=== PATIENT | male | born 1950 | race Caucasian/White ===

== ENCOUNTER 2018-04-06 15:25 | Inpatient (IN) ==
--- NOTE | 2018-04-06 19:14 | ED ---
HPI General Chief complaint: Skin/Abscess/Foreign Body Stated complaint: R calf issue, chest congestion, trouble breathing Time Seen by Provider: 04/06/18 18:07 Source: patient and family Mode of arrival: ambulatory Limitations: no limitations History of Present Illness HPI narrative: Mr Higgins is a 67 year old male who presents to the ED for a rash on his right lower leg. The patient states the rash began last Friday as light pink dots and has progressed to a large erythematous area of confluence and petechiae surrounding it. He states there is pain over the area that is the darkest, directly over the tibia on the anterior lower leg. This pain is a 5/10 at rest and a 9/10 when touched. The patient has uncontrolled DMT2, and his last A1C was 9.1. He has a diabetic ulcer on the dorsal aspect of the right big toe that he states has been present for 2 months and has not changed. He also states the right leg has been swollen much more than normal since Friday and he has been keeping it elevated but it does not seem to help. Upon further questioning, the patient states he has SOB on exertion that has been present for 3 months, and intermittent chest pain since Friday that he describes as a 6/10 and feels like pressure. He also experiences SOB when lying flat. The patient's PMH is significant for DMT2, 3 stent placements, HTN, sleep apnea, hyperlipidemia, and a mini stroke in 2005. The patient is not taking any blood thinners. He is a former smoker but quit 15 years ago, drinks 1 scotch per day, and denies drug use. Patient did took an aspirin 325 mg today. Related Data Home Medications Medication Instructions Recorded Confirmed amlodipine 2.5 mg PO DAILY 04/06/18 04/06/18 ascorbic acid (vitamin C) [Vitamin 500 mg PO DAILY 04/06/18 04/06/18 C] aspirin 325 mg PO DAILY 04/06/18 04/06/18 atorvastatin 40 mg PO DAILY 04/06/18 04/06/18 cholecalciferol (vitamin D3) 2,000 unit PO DAILY 04/06/18 04/06/18 [Vitamin D3] cyanocobalamin (vitamin B-12) 2,500 mcg SUBLINGUAL DAILY 04/06/18 04/06/18 [Vitamin B-12] glipizide 10 mg PO DAILY 04/06/18 04/06/18 hydrochlorothiazide 25 mg PO DAILY 04/06/18 04/06/18 lisinopril 20 mg PO DAILY 04/06/18 04/06/18 metformin 1,500 mg PO QPM 04/06/18 04/06/18 potassium chloride 20 meq PO DAILY 04/06/18 04/06/18 sitagliptin [Januvia] 100 mg PO DAILY 04/06/18 04/06/18 zinc 50 mg PO DAILY 04/06/18 04/06/18 Allergies Allergy/AdvReac Type Severity Reaction Status Date / Time No Known Allergies Allergy Verified 04/07/18 14:41 Review of Systems ROS: all other systems reviewed are negative [facility] Medical History Medical History Coronary artery disease (Acute) Diabetes mellitus (Acute) History of CVA (cerebrovascular accident) (Acute) Hyperlipidemia (Acute) Hypertension (Acute) Surgical History Surgical History History of coronary artery stent placement (Acute) Family History Family History Other Lung cancer Social History Social History Substance History: No History of Abuse Second Hand Smoke Exposure: No Smoking Status: Former smoker How Often Do You Have a Drink Containing Alcohol: 4 or more times a week Recent Travel in [facility] within the Last 8 Weeks: No Recent Out of Country Travel within the Last 8 Weeks: No Immunization History Tetanus Immunization: >5 Years Exam Narrative Exam Narrative: GENERAL: Patient is a well appearing male in [facility]. SKIN: Warm and dry. HEAD: Atraumatic. Normocephalic. EYES: Pupils equal and round. No scleral icterus. No injection or drainage. ENT: No nasal bleeding or discharge. Mucous membranes pink and moist. NECK: Trachea midline. No JVD. CARDIOVASCULAR: Tachycardic. Regular rhythm. RESPIRATORY: No accessory muscle use. Clear to auscultation. Breath sounds equal bilaterally. GASTROINTESTINAL: Abdomen soft, non-tender, nondistended. Hepatic and splenic margins not palpable. MUSCULOSKELETAL: Extremities without clubbing or cyanosis. Large erythematous petechiae with central confluence on the right lower leg from knee to ankle. Pain with palpation of the confluence. Edema of the lower extremities bilaterally, more pronounced on the right. Diabetic ulcer present on the dorsal surface of the right hallux. DP pulses palpable bilaterally. NEUROLOGICAL: Awake and alert. No obvious cranial nerve deficits. Motor grossly within normal limits. Five out of 5 muscle strength in the arms and legs. Normal speech. Decreased sensation to the bilateral lower extremities to touch and vibration. PSYCHIATRIC: Appropriate mood and affect; insight and judgment normal. Course Initial Documented Vital Signs Temperature 98.8 F 04/06/18 15:36 Pulse Rate 120 H 04/06/18 15:36 Respiratory Rate 18 04/06/18 15:36 Blood Pressure 144/67 H 04/06/18 15:36 Pulse Oximetry 97 04/06/18 15:36 Last Documented Vital Signs Temperature 98.7 F 04/08/18 12:00 Pulse Rate 91 H 04/08/18 12:00 Respiratory Rate 16 04/08/18 12:00 Blood Pressure 121/64 04/08/18 12:00 Pulse Oximetry 96 04/08/18 12:00 Medical Decision Making CHRIS Attestation CHRIS supervised visit: Yes Attestation: I, Dr. Ramachandran, have reviewed the advance practice practitioner's documentation and am in agreement, met with the patient face to face, made the diagnosis, and the medical decision making was done by me. *My assessment and Findings: NSTEMI MDM Narrative Medical decision making narrative: 67-year-old male that presents to the ED for evaluation of right lower leg infection and shortness of breath with exertion. Patient was properly examined and was found to have signs and symptoms of unclear etiology. Labs and imaging were ordered. Labs and imaging were positive for appears to be cellulitis of the right leg as well as what appears to be an STEMI. At this time Sanders is for admission. Patient was on heparin IV as well as Zosyn and Vanco per my attending's recommendation per my attending Dr. Vilma Lundler the patient with me and agrees with plan. Case discussed with Dr. Mercer who agrees admission to her service. Medical Screen Exam Complete: Yes Emergency Medical Condition: Yes Differential Diagnosis Differential Diagnosis: NSTEMI versus angina versus cellulitis versus ACS versus DVT Medical Records Medical records reviewed: Yes I reviewed the patient's medical records. Lab Data Lab results reviewed: Yes I reviewed the patient's lab results. Result diagrams: 04/08/18 06:45 04/08/18 06:45 Lab Results 04/06/18 04/06/18 04/06/18 Range/Units 18:40 18:40 18:40 WBC 12.3 H (4.0-11.0) th/mm3 RBC 4.91 (4.50-5.90) mil/mm3 Hgb 14.8 (13.0-17.0) gm/dL Hct 43.4 (39.0-51.0) % MCV 88.3 (80.0-100.0) fL MCH 30.1 (27.0-34.0) pg MCHC 34.1 (32.0-36.0) % RDW 13.5 (11.6-17.2) % Plt Count 246 (150-450) th/mm3 MPV 9.0 (7.0-11.0) fL Prelim Diff (Auto) Neut % (Auto) 64.4 (16.0-70.0) % Lymph % (Auto) 21.7 (9.0-44.0) % Mora % (Auto) 11.0 H (0.0-8.0) % Eos % (Auto) 2.1 (0.0-4.0) % Baso % (Auto) 0.8 (0.0-2.0) % Neut # (Auto) 8.0 H (1.8-7.7) th/mm3 Lymph # (Auto) 2.7 (1.0-4.8) th/mm3 Mora # (Auto) 1.4 H (0.0-0.9) th/mm3 Eos # (Auto) 0.3 (0.0-0.4) th/mm3 Baso # (Auto) 0.1 (0.0-0.2) th/mm3 WBC Differential . Diff Scan Seg Neuts % (Manual) (16-70) % Band Neuts % (Manual) (0-6) % Lymphocytes % (Manual) (9-44) % Monocytes % (Manual) (0-8) % Eosinophils % (Manual) (0-4) % Basophils % (Manual) (0-2) % Myelocytes % (Man) (0-0) % Abs Neuts (Manual) (1.8-7.7) th/mm3 Differential Comment Auto diff final Platelet Estimate (Normal) Platelet Morphology (Normal) Ovalocytes (None) PT (9.8-11.6) sec INR Ratio APTT (23.4-31.7) sec Sodium Cancelled Potassium Cancelled Chloride Cancelled Carbon Dioxide Cancelled Anion Gap Cancelled BUN Cancelled Creatinine Cancelled Estimated GFR Cancelled POC Glucose (68-110) mg/dl Random Glucose Cancelled Lactic Acid 2.6 H (0.4-2.0) mmol/L Calcium Cancelled Total Bilirubin (0.2-1.0) mg/dL AST (15-37) U/L ALT (12-78) U/L Alkaline Phosphatase (45-117) U/L Total Creatine Kinase (39-308) U/L Troponin I (0.02-0.05) ng/mL C-Reactive Protein (0.00-0.30) mg/dL B-Natriuretic Peptide (0-100) pg/mL Total Protein (6.4-8.2) g/dL Albumin (3.4-5.0) g/dL 04/06/18 04/06/18 04/06/18 Range/Units 18:40 18:40 20:10 WBC (4.0-11.0) th/mm3 RBC (4.50-5.90) mil/mm3 Hgb (13.0-17.0) gm/dL Hct (39.0-51.0) % MCV (80.0-100.0) fL MCH (27.0-34.0) pg MCHC (32.0-36.0) % RDW (11.6-17.2) % Plt Count (150-450) th/mm3 MPV (7.0-11.0) fL Prelim Diff (Auto) Neut % (Auto) (16.0-70.0) % Lymph % (Auto) (9.0-44.0) % Mora % (Auto) (0.0-8.0) % Eos % (Auto) (0.0-4.0) % Baso % (Auto) (0.0-2.0) % Neut # (Auto) (1.8-7.7) th/mm3 Lymph # (Auto) (1.0-4.8) th/mm3 Mora # (Auto) (0.0-0.9) th/mm3 Eos # (Auto) (0.0-0.4) th/mm3 Baso # (Auto) (0.0-0.2) th/mm3 WBC Differential Diff Scan Seg Neuts % (Manual) (16-70) % Band Neuts % (Manual) (0-6) % Lymphocytes % (Manual) (9-44) % Monocytes % (Manual) (0-8) % Eosinophils % (Manual) (0-4) % Basophils % (Manual) (0-2) % Myelocytes % (Man) (0-0) % Abs Neuts (Manual) (1.8-7.7) th/mm3 Differential Comment Platelet Estimate (Normal) Platelet Morphology (Normal) Ovalocytes (None) PT 10.8 (9.8-11.6) sec INR 1.1 Ratio APTT 22.1 L (23.4-31.7) sec Sodium 136 Potassium 3.3 L Chloride 100 Carbon Dioxide 27.7 Anion Gap 8 BUN 23 H Creatinine 1.44 H Estimated GFR 49 L POC Glucose (68-110) mg/dl Random Glucose 170 H Lactic Acid (0.4-2.0) mmol/L Calcium 9.1 Total Bilirubin (0.2-1.0) mg/dL AST (15-37) U/L ALT (12-78) U/L Alkaline Phosphatase (45-117) U/L Total Creatine Kinase (39-308) U/L Troponin I 2.27 H* (0.02-0.05) ng/mL C-Reactive Protein 13.00 H (0.00-0.30) mg/dL B-Natriuretic Peptide 74 (0-100) pg/mL Total Protein (6.4-8.2) g/dL Albumin (3.4-5.0) g/dL 04/07/18 04/07/18 04/07/18 Range/Units 00:36 01:00 01:49 WBC (4.0-11.0) th/mm3 RBC (4.50-5.90) mil/mm3 Hgb (13.0-17.0) gm/dL Hct (39.0-51.0) % MCV (80.0-100.0) fL MCH (27.0-34.0) pg MCHC (32.0-36.0) % RDW (11.6-17.2) % Plt Count (150-450) th/mm3 MPV (7.0-11.0) fL Prelim Diff (Auto) Neut % (Auto) (16.0-70.0) % Lymph % (Auto) (9.0-44.0) % Mora % (Auto) (0.0-8.0) % Eos % (Auto) (0.0-4.0) % Baso % (Auto) (0.0-2.0) % Neut # (Auto) (1.8-7.7) th/mm3 Lymph # (Auto) (1.0-4.8) th/mm3 Mora # (Auto) (0.0-0.9) th/mm3 Eos # (Auto) (0.0-0.4) th/mm3 Baso # (Auto) (0.0-0.2) th/mm3 WBC Differential Diff Scan Seg Neuts % (Manual) (16-70) % Band Neuts % (Manual) (0-6) % Lymphocytes % (Manual) (9-44) % Monocytes % (Manual) (0-8) % Eosinophils % (Manual) (0-4) % Basophils % (Manual) (0-2) % Myelocytes % (Man) (0-0) % Abs Neuts (Manual) (1.8-7.7) th/mm3 Differential Comment Platelet Estimate (Normal) Platelet Morphology (Normal) Ovalocytes (None) PT (9.8-11.6) sec INR Ratio APTT (23.4-31.7) sec Sodium Potassium Chloride Carbon Dioxide Anion Gap BUN Creatinine Estimated GFR POC Glucose 130 H 120 H (68-110) mg/dl Random Glucose Lactic Acid (0.4-2.0) mmol/L Calcium Total Bilirubin (0.2-1.0) mg/dL AST (15-37) U/L ALT (12-78) U/L Alkaline Phosphatase (45-117) U/L Total Creatine Kinase 255 (39-308) U/L Troponin I 2.09 H* (0.02-0.05) ng/mL C-Reactive Protein (0.00-0.30) mg/dL B-Natriuretic Peptide (0-100) pg/mL Total Protein (6.4-8.2) g/dL Albumin (3.4-5.0) g/dL 04/07/18 04/07/18 04/07/18 Range/Units 02:45 06:17 06:17 WBC 9.1 (4.0-11.0) th/mm3 RBC 4.11 L (4.50-5.90) mil/mm3 Hgb 12.9 L (13.0-17.0) gm/dL Hct 35.9 L (39.0-51.0) % MCV 87.2 (80.0-100.0) fL MCH 31.4 (27.0-34.0) pg MCHC 36.0 (32.0-36.0) % RDW 13.8 (11.6-17.2) % Plt Count 210 (150-450) th/mm3 MPV 8.9 (7.0-11.0) fL Prelim Diff (Auto) Slide review pending Neut % (Auto) 60.2 (16.0-70.0) % Lymph % (Auto) 25.9 (9.0-44.0) % Mora % (Auto) 9.4 H (0.0-8.0) % Eos % (Auto) 3.6 (0.0-4.0) % Baso % (Auto) 0.9 (0.0-2.0) % Neut # (Auto) 5.5 (1.8-7.7) th/mm3 Lymph # (Auto) 2.4 (1.0-4.8) th/mm3 Mora # (Auto) 0.8 (0.0-0.9) th/mm3 Eos # (Auto) 0.3 (0.0-0.4) th/mm3 Baso # (Auto) 0.1 (0.0-0.2) th/mm3 WBC Differential . Diff Scan Auto diff confirmed Seg Neuts % (Manual) (16-70) % Band Neuts % (Manual) (0-6) % Lymphocytes % (Manual) (9-44) % Monocytes % (Manual) (0-8) % Eosinophils % (Manual) (0-4) % Basophils % (Manual) (0-2) % Myelocytes % (Man) (0-0) % Abs Neuts (Manual) (1.8-7.7) th/mm3 Differential Comment . Platelet Estimate (Normal) Platelet Morphology (Normal) Ovalocytes (None) PT (9.8-11.6) sec INR Ratio APTT 31.4 D (23.4-31.7) sec Sodium 138 Potassium 3.3 L Chloride 103 Carbon Dioxide 27.7 Anion Gap 7 BUN 22 H Creatinine 1.15 Estimated GFR 64 L POC Glucose (68-110) mg/dl Random Glucose 111 H Lactic Acid (0.4-2.0) mmol/L Calcium 8.4 L Total Bilirubin (0.2-1.0) mg/dL AST (15-37) U/L ALT (12-78) U/L Alkaline Phosphatase (45-117) U/L Total Creatine Kinase 146 (39-308) U/L Troponin I 1.49 H* (0.02-0.05) ng/mL C-Reactive Protein (0.00-0.30) mg/dL B-Natriuretic Peptide (0-100) pg/mL Total Protein (6.4-8.2) g/dL Albumin (3.4-5.0) g/dL 04/07/18 04/07/18 04/07/18 Range/Units 08:24 09:31 11:41 WBC (4.0-11.0) th/mm3 RBC (4.50-5.90) mil/mm3 Hgb (13.0-17.0) gm/dL Hct (39.0-51.0) % MCV (80.0-100.0) fL MCH (27.0-34.0) pg MCHC (32.0-36.0) % RDW (11.6-17.2) % Plt Count (150-450) th/mm3 MPV (7.0-11.0) fL Prelim Diff (Auto) Neut % (Auto) (16.0-70.0) % Lymph % (Auto) (9.0-44.0) % Mora % (Auto) (0.0-8.0) % Eos % (Auto) (0.0-4.0) % Baso % (Auto) (0.0-2.0) % Neut # (Auto) (1.8-7.7) th/mm3 Lymph # (Auto) (1.0-4.8) th/mm3 Mora # (Auto) (0.0-0.9) th/mm3 Eos # (Auto) (0.0-0.4) th/mm3 Baso # (Auto) (0.0-0.2) th/mm3 WBC Differential Diff Scan Seg Neuts % (Manual) (16-70) % Band Neuts % (Manual) (0-6) % Lymphocytes % (Manual) (9-44) % Monocytes % (Manual) (0-8) % Eosinophils % (Manual) (0-4) % Basophils % (Manual) (0-2) % Myelocytes % (Man) (0-0) % Abs Neuts (Manual) (1.8-7.7) th/mm3 Differential Comment Platelet Estimate (Normal) Platelet Morphology (Normal) Ovalocytes (None) PT (9.8-11.6) sec INR Ratio APTT 32.4 H (23.4-31.7) sec Sodium Potassium Chloride Carbon Dioxide Anion Gap BUN Creatinine Estimated GFR POC Glucose 152 H 135 H (68-110) mg/dl Random Glucose Lactic Acid (0.4-2.0) mmol/L Calcium Total Bilirubin (0.2-1.0) mg/dL AST (15-37) U/L ALT (12-78) U/L Alkaline Phosphatase (45-117) U/L Total Creatine Kinase (39-308) U/L Troponin I (0.02-0.05) ng/mL C-Reactive Protein (0.00-0.30) mg/dL B-Natriuretic Peptide (0-100) pg/mL Total Protein (6.4-8.2) g/dL Albumin (3.4-5.0) g/dL 04/07/18 04/07/18 04/07/18 Range/Units 17:44 18:05 20:22 WBC (4.0-11.0) th/mm3 RBC (4.50-5.90) mil/mm3 Hgb (13.0-17.0) gm/dL Hct (39.0-51.0) % MCV (80.0-100.0) fL MCH (27.0-34.0) pg MCHC (32.0-36.0) % RDW (11.6-17.2) % Plt Count (150-450) th/mm3 MPV (7.0-11.0) fL Prelim Diff (Auto) Neut % (Auto) (16.0-70.0) % Lymph % (Auto) (9.0-44.0) % Mora % (Auto) (0.0-8.0) % Eos % (Auto) (0.0-4.0) % Baso % (Auto) (0.0-2.0) % Neut # (Auto) (1.8-7.7) th/mm3 Lymph # (Auto) (1.0-4.8) th/mm3 Mora # (Auto) (0.0-0.9) th/mm3 Eos # (Auto) (0.0-0.4) th/mm3 Baso # (Auto) (0.0-0.2) th/mm3 WBC Differential Diff Scan Seg Neuts % (Manual) (16-70) % Band Neuts % (Manual) (0-6) % Lymphocytes % (Manual) (9-44) % Monocytes % (Manual) (0-8) % Eosinophils % (Manual) (0-4) % Basophils % (Manual) (0-2) % Myelocytes % (Man) (0-0) % Abs Neuts (Manual) (1.8-7.7) th/mm3 Differential Comment Platelet Estimate (Normal) Platelet Morphology (Normal) Ovalocytes (None) PT (9.8-11.6) sec INR Ratio APTT 111.3 H* D (23.4-31.7) sec Sodium Potassium Chloride Carbon Dioxide Anion Gap BUN Creatinine Estimated GFR POC Glucose 114 H 164 H (68-110) mg/dl Random Glucose Lactic Acid (0.4-2.0) mmol/L Calcium Total Bilirubin (0.2-1.0) mg/dL AST (15-37) U/L ALT (12-78) U/L Alkaline Phosphatase (45-117) U/L Total Creatine Kinase (39-308) U/L Troponin I (0.02-0.05) ng/mL C-Reactive Protein (0.00-0.30) mg/dL B-Natriuretic Peptide (0-100) pg/mL Total Protein (6.4-8.2) g/dL Albumin (3.4-5.0) g/dL 04/08/18 04/08/18 04/08/18 Range/Units 02:55 06:45 06:45 WBC 8.9 (4.0-11.0) th/mm3 RBC 3.91 L (4.50-5.90) mil/mm3 Hgb 12.3 L (13.0-17.0) gm/dL Hct 34.2 L (39.0-51.0) % MCV 87.3 (80.0-100.0) fL MCH 31.5 (27.0-34.0) pg MCHC 36.0 (32.0-36.0) % RDW 13.4 (11.6-17.2) % Plt Count 221 (150-450) th/mm3 MPV 8.3 (7.0-11.0) fL Prelim Diff (Auto) Slide review pending Neut % (Auto) 69.3 (16.0-70.0) % Lymph % (Auto) 18.9 (9.0-44.0) % Mora % (Auto) 8.4 H (0.0-8.0) % Eos % (Auto) 2.8 (0.0-4.0) % Baso % (Auto) 0.6 (0.0-2.0) % Neut # (Auto) 6.1 (1.8-7.7) th/mm3 Lymph # (Auto) 1.7 (1.0-4.8) th/mm3 Mora # (Auto) 0.7 (0.0-0.9) th/mm3 Eos # (Auto) 0.2 (0.0-0.4) th/mm3 Baso # (Auto) 0.1 (0.0-0.2) th/mm3 WBC Differential Manual diff final Diff Scan Seg Neuts % (Manual) 68 (16-70) % Band Neuts % (Manual) 5 (0-6) % Lymphocytes % (Manual) 17 (9-44) % Monocytes % (Manual) 7 (0-8) % Eosinophils % (Manual) 1 (0-4) % Basophils % (Manual) 1 (0-2) % Myelocytes % (Man) 1 H (0-0) % Abs Neuts (Manual) 6.6 (1.8-7.7) th/mm3 Differential Comment . Platelet Estimate Normal (Normal) Platelet Morphology Normal (Normal) Ovalocytes 1+ H (None) PT (9.8-11.6) sec INR Ratio APTT (23.4-31.7) sec Sodium 139 Potassium 3.8 Chloride 107 Carbon Dioxide 25.1 Anion Gap 7 BUN 13 Creatinine 0.98 Estimated GFR 77 L POC Glucose 145 H (68-110) mg/dl Random Glucose 138 H Lactic Acid (0.4-2.0) mmol/L Calcium 8.5 Total Bilirubin 0.7 (0.2-1.0) mg/dL AST 16 (15-37) U/L ALT 25 (12-78) U/L Alkaline Phosphatase 63 (45-117) U/L Total Creatine Kinase (39-308) U/L Troponin I (0.02-0.05) ng/mL C-Reactive Protein (0.00-0.30) mg/dL B-Natriuretic Peptide (0-100) pg/mL Total Protein 6.8 (6.4-8.2) g/dL Albumin 2.6 L (3.4-5.0) g/dL 04/08/18 04/08/18 04/08/18 Range/Units 06:45 07:50 11:56 WBC (4.0-11.0) th/mm3 RBC (4.50-5.90) mil/mm3 Hgb (13.0-17.0) gm/dL Hct (39.0-51.0) % MCV (80.0-100.0) fL MCH (27.0-34.0) pg MCHC (32.0-36.0) % RDW (11.6-17.2) % Plt Count (150-450) th/mm3 MPV (7.0-11.0) fL Prelim Diff (Auto) Neut % (Auto) (16.0-70.0) % Lymph % (Auto) (9.0-44.0) % Mora % (Auto) (0.0-8.0) % Eos % (Auto) (0.0-4.0) % Baso % (Auto) (0.0-2.0) % Neut # (Auto) (1.8-7.7) th/mm3 Lymph # (Auto) (1.0-4.8) th/mm3 Mora # (Auto) (0.0-0.9) th/mm3 Eos # (Auto) (0.0-0.4) th/mm3 Baso # (Auto) (0.0-0.2) th/mm3 WBC Differential Diff Scan Seg Neuts % (Manual) (16-70) % Band Neuts % (Manual) (0-6) % Lymphocytes % (Manual) (9-44) % Monocytes % (Manual) (0-8) % Eosinophils % (Manual) (0-4) % Basophils % (Manual) (0-2) % Myelocytes % (Man) (0-0) % Abs Neuts (Manual) (1.8-7.7) th/mm3 Differential Comment Platelet Estimate (Normal) Platelet Morphology (Normal) Ovalocytes (None) PT (9.8-11.6) sec INR Ratio APTT 32.8 H D (23.4-31.7) sec Sodium Potassium Chloride Carbon Dioxide Anion Gap BUN Creatinine Estimated GFR POC Glucose 145 H 233 H (68-110) mg/dl Random Glucose Lactic Acid (0.4-2.0) mmol/L Calcium Total Bilirubin (0.2-1.0) mg/dL AST (15-37) U/L ALT (12-78) U/L Alkaline Phosphatase (45-117) U/L Total Creatine Kinase (39-308) U/L Troponin I (0.02-0.05) ng/mL C-Reactive Protein (0.00-0.30) mg/dL B-Natriuretic Peptide (0-100) pg/mL Total Protein (6.4-8.2) g/dL Albumin (3.4-5.0) g/dL Imaging Data Attestation: I personally reviewed and interpreted this imaging study as follows : Radiologist's impression: Venous Doppler Study 04/06/18 18:35 CONCLUSION: 1. The study is negative for lower extremity deep venous thrombosis. 2. Mildly prominent lymph nodes in the right groin measuring 3.3 and 2.6 cm. Chest X-Ray 04/06/18 18:49 CONCLUSION: Mild compensated cardiomegaly without infiltrate or failure Carotid Doppler Study 04/08/18 13:14 CONCLUSION: 1. Right Internal Carotid Artery: Minimal atherosclerotic plaquing. No hemodynamically significant stenosis identified. 2. Left Internal Carotid Artery: Minimal atherosclerotic plaquing. No hemodynamically significant stenosis identified. Lower Extremity Ultrasound 04/08/18 13:14 CONCLUSION: 1. Vein mapping as above. Venous Doppler Study 04/08/18 13:14 CONCLUSION: The study is negative for bilateral lower extremity deep venous thrombosis. ECG Data Attestation: I personally reviewed and interpreted this ECG as follows: Interpretation: EKG shows sinus rhythm with no sign of acute ischemia and arrhythmia read by me and attending. Discharge Plan Discharge Disposition Patient Disposition: 30 Still Patient Discharge Details Diagnosis: Acute non-ST elevation myocardial infarction (NSTEMI), Cellulitis Physicians Team ED Provider: Ethan Ramachandran ED Midlevel Provider: Abraham Morales Primary Care Provider: NON STAFF,PROVIDER Attending Provider: Tru Cool Other Providers: Rachel Lopez [place] Status ED Status: Left Department Discharge Information Discharge Date/Time: 04/07/18 01:45
--- NOTE | 2018-04-06 19:20 | XR ---
EXAM DATE: 04/06/2018 7:12 PM EST AGE/SEX: 67 years / Male INDICATIONS: Congestion CLINICAL DATA: This is the patient's initial encounter. Patient reports that signs and symptoms have been present for 2 days and indicates a pain score of 0/10. MEDICAL/SURGICAL HISTORY: Diabetes mellitus type II. Hypertension. Cardiovascular disease. Co ronary artery stent. COMPARISON: No prior exams available for comparison. FINDINGS: The heart is enlarged. The pulmonary vascularity is normal. No pneumothorax. No other consolidation. No pleural effusion. The portion of the bony skeleton visualized is unremarkable. CONCLUSION: Mild compensated cardiomegaly without infiltrate or failure Electronically signed by: Yonatan Meng MD 04/06/2018 7:19 PM EST
[2018-04-06 19:32] LABS: Calcium 9.1 mg/dL (8.5-10.1); Carbon Dioxide 27.7 meq/L (21.0-32.0); Potassium 3.3 meq/L (3.5-5.1)
[2018-04-06 19:39] LABS: Baso # (Auto) 0.1 th/mm3 (0.0-0.2); Baso % (Auto) 0.8 % (0.0-2.0); Eos # (Auto) 0.3 th/mm3 (0.0-0.4); Eos % (Auto) 2.1 % (0.0-4.0); Hematocrit 43.4 % (39.0-51.0); Hemoglobin 14.8 gm/dL (13.0-17.0); Lymph # (Auto) 2.7 th/mm3 (1.0-4.8); Lymph % (Auto) 21.7 % (9.0-44.0); Mean Corpuscular HGB Conc 34.1 % (32.0-36.0); Mean Corpuscular Hemoglobin 30.1 pg (27.0-34.0); Mean Corpuscular Volume 88.3 fL (80.0-100.0); Mono # (Auto) 1.4 th/mm3 (0.0-0.9); Neut % (Auto) 64.4 % (16.0-70.0); Platelet Count 246 th/mm3 (150-450); Red Blood Count 4.91 mil/mm3 (4.50-5.90); Red Cell Distribution Width 13.5 % (11.6-17.2); White Blood Count 12.3 th/mm3 (4.0-11.0)
--- NOTE | 2018-04-06 19:40 | US ---
EXAM DATE: 04/06/2018 7:34 PM EST AGE/SEX: 67 years / Male INDICATIONS: Right leg redness and pain. CLINICAL DATA: This is the patient's initial encounter. Patient reports that signs and symptoms have been present for 2 days and indicates a pain score of 6/10. MEDICAL/SURGICAL HISTORY: . Diabetic. HTN. Hypercholesterol. . Coronary stent. COMPARISON: No prior exams available for comparison. TECHNIQUE: Venous ultrasound of both lower extremities was performed from the inguinal ligament to t he proximal calf. Real-time, color Doppler and spectral tracing, compression and augmentation techni ques were used. FINDINGS: Normal compression of the deep venous system from the inguinal region to the proximal calf . No echogenic clot is seen. Normal response of the venous system to augmentation and respiration. CONCLUSION: 1. The study is negative for lower extremity deep venous thrombosis. 2. Mildly prominent lymph nodes in the right groin measuring 3.3 and 2.6 cm. Electronically signed by: Sean Gil MD 04/06/2018 7:38 PM EST
[2018-04-06 19:48] LABS: Troponin I 2.27 ng/mL (0.02-0.05)
[2018-04-06] MEDS ORDERED: Heparin 10,000 UNITS/10 ML Vial (for IV use) IV.PUSH STA (19:57)
[2018-04-06] MEDS ORDERED: Heparin Drip 25,000 UNIT/250 ML BAG IV.CONT PRN (19:57)
[2018-04-06] MEDS ORDERED: Piperacil/Tazo 3.375 GM Premix 50 ML IV.SIG ONE (20:05)
[2018-04-06] MEDS ORDERED: Vancomycin Inj 1,000 MG in Sodium Chlor 0.9% Inj 250 ML IV.SIG ONE (20:05)
[2018-04-06] MEDS ORDERED: Vancomycin Consult Pharmacy OTHER PRN (20:49)
[2018-04-06] MEDS ORDERED: Bisacodyl 10 MG Supp RECTAL PRN (20:50)
[2018-04-06] MEDS ORDERED: Acetaminophen 325 MG Tablet PO PRN (20:50)
[2018-04-06] MEDS ORDERED: Prochlorperazine 25 MG Supp RECTAL PRN (20:50)
[2018-04-06] MEDS ORDERED: Dextrose 50% in Water 50 ML Vial IV.PUSH PRN (20:50)
--- NOTE | 2018-04-06 20:59 | P.HP ---
History of Present Illness Service: [facility] Primary Care Physician: PROVIDER NON STAFF History of Present Illness: 67-year-old male with a past medical history significant for coronary artery disease status post stent placement x3, history of CVA, hypertension, hyperlipidemia and diabetes mellitus presents to the emergency department for the evaluation of a red, swollen, warm right lower extremity. The patient reports that approximately 48 hours ago his leg became red and the redness and swelling has increased since that time. He endorses associated subjective fevers and chills. He also complains of chest pain and shortness of breath that started Friday and stopped on Friday. He denies any current chest pain or shortness of breath. No recent diaphoretic episodes. No abdominal pain. No nausea/vomiting/diarrhea. No focal neurologic deficits. Inpatient Certification: I certify that the inpatient services were ordered in accordance with Medicare regulations governing the order. This includes certification that hospital inpatient services are reasonable and necessary and in the case of services not specified as inpatient-only under 42 CFR 419.22(n), that they are appropriately provided as inpatient services in accordance to with the 2-midnight benchmark under 43 CFR 412.3(e) Review of Systems All other systems reviewed negative except as stated in HPI PMFSH - History History Provided By: Patient - Medical History Medical History: Medical History (Last Updated 04/06/18 @ 20:51 by Bing Mercer MD) Coronary artery disease Diabetes mellitus History of CVA (cerebrovascular accident) Hyperlipidemia Hypertension - Surgical History Surgical History: Surgical History (Last Updated 04/06/18 @ 20:53 by Bing Mercer MD) History of coronary artery stent placement - Family History Family History: Family History (Last Updated 04/06/18 @ 20:53 by Bing Mercer MD) Other Lung cancer - Tobacco History Smoking Status: Former smoker - Alcohol History How Often Do You Have a Drink Containing Alcohol: 4 or more times a week - Substance Use History Substance History: No History of Abuse - Travel History Recent Travel in the [place] Within the Last 8 Weeks: No Recent Travel Out of the Country Within the Last 8 Weeks: No - Immunization History Tetanus Immunization: >5 Years Medications and Allergies Active Medications: Active Medications Heparin Sodium/Dextrose (Heparin/D5w 25,000 U/250 Ml) 25,000 unit in 250 mls @ 0 mls/hr IV.CONT TITRATE PRN; Protocol PRN Reason: Per Protocol Vancomycin HCl 1,000 mg/ (Sodium Chloride) 250 mls @ 250 mls/hr IV.SIG ONCE ONE Stop: 04/06/18 21:04 Allergies Allergy/AdvReac Type Severity Reaction Status Date / Time No Known Allergies Uncoded 03/13/09 06:56 Home Medications Medication Instructions Recorded Confirmed Type amlodipine 2.5 mg PO DAILY 04/06/18 04/06/18 History ascorbic acid (vitamin C) [Vitamin 500 mg PO DAILY 04/06/18 04/06/18 History C] aspirin 325 mg PO DAILY 04/06/18 04/06/18 History atorvastatin 40 mg PO DAILY 04/06/18 04/06/18 History cholecalciferol (vitamin D3) 2,000 unit PO DAILY 04/06/18 04/06/18 History [Vitamin D3] cyanocobalamin (vitamin B-12) 2,500 mcg SUBLINGUAL DAILY 04/06/18 04/06/18 History [Vitamin B-12] glipizide 10 mg PO DAILY 04/06/18 04/06/18 History hydrochlorothiazide 25 mg PO DAILY 04/06/18 04/06/18 History lisinopril 20 mg PO DAILY 04/06/18 04/06/18 History metformin 1,500 mg PO QPM 04/06/18 04/06/18 History potassium chloride 20 meq PO DAILY 04/06/18 04/06/18 History sitagliptin [Januvia] 100 mg PO DAILY 04/06/18 04/06/18 History zinc 50 mg PO DAILY 04/06/18 04/06/18 History Exam Vital signs: Vital Signs 04/06/18 15:36 04/06/18 18:36 Temperature 98.8 F 98.8 F Pulse Rate 120 H 112 H Respiratory Rate 18 18 Blood Pressure 144/67 H 127/60 Pulse Oximetry 97 97 Intake & Output 04/06/18 04/06/18 04/07/18 06:59 18:59 06:59 Weight 124.738 kg Narrative: Gen.: No acute distress Head: Normocephalic. Atraumatic. EENT: Pupils equal round and reactive to light. Nose without drainage. Airway intact. Throat without injection. Cardiovascular: Regular rate and rhythm. No murmurs, rubs or gallops. Respiratory: Lungs clear to auscultation bilaterally. No wheezes or rhonchi. Abdomen: Soft, nontender, nondistended. No peritoneal signs. Musculoskeletal: No gross deformities. No edema. Skin: Erythematous and swollen right lower extremity from ankle to knee without any areas of fluctuance or active drainage. Warm to the touch. Neuro: Sensory and motor grossly intact. Cranial nerves II through XII grossly intact. Results - Labs CBC & Chem 7: 04/06/18 18:40 04/06/18 18:40 Labs: Laboratory Results - last 24 hr 04/06/18 04/06/18 04/06/18 18:40 18:40 18:40 WBC 12.3 H RBC 4.91 Hgb 14.8 Hct 43.4 MCV 88.3 MCH 30.1 MCHC 34.1 RDW 13.5 Plt Count 246 MPV 9.0 Neut % (Auto) 64.4 Lymph % (Auto) 21.7 [place] % (Auto) 11.0 H Eos % (Auto) 2.1 Baso % (Auto) 0.8 Neut # (Auto) 8.0 H Lymph # (Auto) 2.7 [place] # (Auto) 1.4 H Eos # (Auto) 0.3 Baso # (Auto) 0.1 WBC Differential . Differential Comment Auto diff final Sodium Cancelled Potassium Cancelled Chloride Cancelled Carbon Dioxide Cancelled Anion Gap Cancelled BUN Cancelled Creatinine Cancelled Estimated GFR Cancelled Random Glucose Cancelled Lactic Acid 2.6 H Calcium Cancelled Troponin I C-Reactive Protein B-Natriuretic Peptide 04/06/18 04/06/18 18:40 18:40 WBC RBC Hgb Hct MCV MCH MCHC RDW Plt Count MPV Neut % (Auto) Lymph % (Auto) [place] % (Auto) Eos % (Auto) Baso % (Auto) Neut # (Auto) Lymph # (Auto) [place] # (Auto) Eos # (Auto) Baso # (Auto) WBC Differential Differential Comment Sodium 136 Potassium 3.3 L Chloride 100 Carbon Dioxide 27.7 Anion Gap 8 BUN 23 H Creatinine 1.44 H Estimated GFR 49 L Random Glucose 170 H Lactic Acid Calcium 9.1 Troponin I 2.27 H* C-Reactive Protein 13.00 H B-Natriuretic Peptide 74 - Imaging Impressions Venous Doppler Study 04/06/18 18:35 CONCLUSION: 1. The study is negative for lower extremity deep venous thrombosis. 2. Mildly prominent lymph nodes in the right groin measuring 3.3 and 2.6 cm. Chest X-Ray 04/06/18 18:49 CONCLUSION: Mild compensated cardiomegaly without infiltrate or failure Caprini VTE Risk Assessment Caprini VTE Risk Assessment: Moderate/High Risk (score >= 2) Caprini Risk Assessment Model: Point Value = 1 Point Value = 2 Point Value = 3 Point Value = 5 Age 41-60 Minor surgery BMI > 25 kg/m2 Swollen legs Varicose veins or History of unexplained or recurrent spontaneous Oral contraceptives or hormone replacement Sepsis (< 1 month) Serious lung disease, including pneumonia (< 1 month) Abnormal pulmonary function Acute myocardial infarction Congestive heart failure (< 1 month) History of inflammatory bowel disease Medical patient at bed rest Age 61-74 Arthroscopic surgery Major open surgery (> 45 min) Laparoscopic surgery (> 45 min) Malignancy Confined to bed (> 72 hours) Immobilizing plaster cast Central venous access Age >= 75 History of VTE Family history of VTE Factor V Leiden Prothrombin [id number] Lupus anticoagulant Anticardiolipin antibodies Elevated serum homocysteine Heparin-induced thrombocytopenia Other congenital or acquired thrombophilia Stroke (< 1 month) Elective arthroplasty Hip, pelvis, or leg fracture Acute spinal cord injury (< 1 month) Prophylaxis Regimen: Total Risk Factor Score Risk Level Prophylaxis Regimen 0-1 Low Early ambulation 2 Moderate Order ONE of the following: *Sequential Compression Device (SCD) *Heparin 5000 units SQ BID 3-4 Higher Order ONE of the following medications: *Heparin 5000 units SQ TID *Enoxaparin/Lovenox 40 mg SQ daily (WT < 150 kg, CrCl > 30 mL/min) *Enoxaparin/Lovenox 30 mg SQ daily (WT < 150 kg, CrCl > 10-29 mL/min) *Enoxaparin/Lovenox 30 mg SQ BID (WT < 150 kg, CrCl > 30 mL/min) AND/OR *Sequential Compression Device (SCD) 5 or more Highest Order ONE of the following medications: *Heparin 5000 units SQ TID (Preferred with Epidurals) *Enoxaparin/Lovenox 40 mg SQ daily (WT < 150 kg, CrCl > 30 mL/min) *Enoxaparin/Lovenox 30 mg SQ daily (WT < 150 kg, CrCl > 10-29 mL/min) *Enoxaparin/Lovenox 30 mg SQ BID (WT < 150 kg, CrCl > 30 mL/min) AND *Sequential Compression Device (SCD) Assessment and Plan - Plan Assessment/plan: 1. NSTEMI/CAD Troponin 2.[address] segment elevation or depression, personally reviewed Heparin drip Cardiology consulted, appreciate assistance Serial troponins/EKGs 2. Right lower extremity cellulitis Blood cultures pending Vancomycin/Zosyn Anticipate transition to p.o. antibiotics once cultures result 3. Diabetes mellitus Sliding scale insulin Monitor blood glucose 4. Hypertension/hyperlipidemia Continue home medications 5. AK I Creatinine 1.44, baseline 0.9 IV fluid hydration Monitor renal FEN N.p.o. Electrolytes: Status post p.o. repletion of potassium, follow-up BMP in a.m. Heparin drip NS at 100 cc/hour
[2018-04-06 21:21] LABS: Activated Partial Thrombo Time 22.1 sec (23.4-31.7); INR 1.1 Ratio; Prothrombin Time 10.8 sec (9.8-11.6)
[2018-04-07] MEDS: Vancomycin Inj 1,500 MG in Sodium Chlor 0.9% Inj 500 ML IV.SIG SCH ×2 (00:38→18:07)
[2018-04-07] MEDS: Sod Chloride 0.9% Inj 1,000 ML IV.CONT SCH ×4 (00:38→18:00)
[2018-04-07] MEDS: Insulin NovoLOG Aspart Correctional Sugar Inj SQ SCH ×6 (00:39→20:50)
[2018-04-07 02:39] LABS: Troponin I 2.09 ng/mL (0.02-0.05)
[2018-04-07] MEDS: Piperacil/Tazo 3.375 GM Premix 50 ML IV.SIG SCH ×4 (03:33→20:51)
[2018-04-07 06:47] LABS: Baso # (Auto) 0.1 th/mm3 (0.0-0.2); Baso % (Auto) 0.9 % (0.0-2.0); Eos # (Auto) 0.3 th/mm3 (0.0-0.4); Eos % (Auto) 3.6 % (0.0-4.0); Hematocrit 35.9 % (39.0-51.0); Hemoglobin 12.9 gm/dL (13.0-17.0); Lymph # (Auto) 2.4 th/mm3 (1.0-4.8); Lymph % (Auto) 25.9 % (9.0-44.0); Mean Corpuscular Hemoglobin 31.4 pg (27.0-34.0); Mean Corpuscular Volume 87.2 fL (80.0-100.0); Mean Platelet Volume 8.9 fL (7.0-11.0); Mono # (Auto) 0.8 th/mm3 (0.0-0.9); Mono % (Auto) 9.4 % (0.0-8.0); Neut # (Auto) 5.5 th/mm3 (1.8-7.7); Neut % (Auto) 60.2 % (16.0-70.0); Platelet Count 210 th/mm3 (150-450); Red Blood Count 4.11 mil/mm3 (4.50-5.90); Red Cell Distribution Width 13.8 % (11.6-17.2); White Blood Count 9.1 th/mm3 (4.0-11.0)
[2018-04-07 07:00] LABS: Calcium 8.4 mg/dL (8.5-10.1); Carbon Dioxide 27.7 meq/L (21.0-32.0); Potassium 3.3 meq/L (3.5-5.1)
[2018-04-07 07:19] LABS: Troponin I 1.49 ng/mL (0.02-0.05)
[2018-04-07] MEDS ORDERED: fentaNYL Citrate Inj 100 MCG/2 ML Ampul IV.PUSH SCH (08:45)
[2018-04-07] MEDS: Lisinopril 20 MG Tablet PO SCH (09:26)
--- NOTE | 2018-04-07 10:00 | MB ---
cc: Campbell Juan MD DATE: 04/07/2018 REASON FOR CONSULTATION: Possible non-ST elevation myocardial infarction. HISTORY OF PRESENT ILLNESS: The patient is a 67-year-old white male with a history of coronary artery disease, diabetes, hypertension, hyperlipidemia, transient ischemic attack, sleep apnea, who presented to the hospital, mainly with complaints of right lower extremity below the knee rash, tenderness, swelling. Three days ago, he began to develop an erythematous, irregular dermatological eruption, mostly in the calf region of his right lower extremity associated with mild swelling. In the emergency department, he also related a several week history of fairly severe dyspnea with minimal to mild exertion. He denies any chest pain. About 4 nights ago, he experienced 2 or 3 episodes of near syncope while getting up at night to go to the bathroom. He denies true loss of consciousness, palpitations, paroxysmal nocturnal dyspnea, fevers. PAST MEDICAL HISTORY: 1. Coronary artery disease, status post coronary stenting in 2005 at [facility]. From what I can tell, his last heart catheterization was 03/13/[address] Rachel Lopez, at which time he underwent stent x 2 of the proximal and mid right coronary using two 3.0 mm Jefferson stents. 2. Diabetes. 3. Hypertension. 4. Sleep apnea. 5. Transient ischemic attack 2005. 6. Hyperlipidemia. CARDIAC MEDICATIONS AT HOME: 1. Potassium chloride 20 mEq daily. 2. Lisinopril 20 mg daily. 3. Hydrochlorothiazide 25 mg daily. 4. Atorvastatin 40 mg daily. 5. Amlodipine 2.5 mg daily. 6. Aspirin 325 mg daily. ALLERGIES: NO KNOWN DRUG ALLERGIES. FAMILY HISTORY: There is no significant family history of early myocardial infarction. SOCIAL HISTORY: The patient quit smoking about 20 years ago. He denies drug or alcohol abuse. REVIEW OF SYSTEMS: As in the history of present illness, otherwise negative or noncontributory. He also currently denies headache, abdominal pain, melena, dyspepsia, bright red blood per rectum, wheezing. PHYSICAL EXAMINATION: VITAL SIGNS: Blood pressure 137/80 with a pulse of 90, respirations 18. GENERAL: He is a well-developed, well-nourished white male, in no acute distress. NECK: Jugular venous pressure is normal. Carotid pulses are 2+ bilaterally and without bruits. CHEST: Reveals clear lungs carr. CARDIAC: He has a regular rhythm and rate without S3, S4, or murmur. ABDOMEN: He has a soft, obese, nontender abdomen. Bowel sounds are present. There is no definite hepatosplenomegaly. EXTREMITIES: Reveals no clubbing or cyanosis. There is diffuse, mildly irregular, erythematous, macular dermatological eruption of his right lower extremity below the knee. Peripheral pulses are normal throughout. LABORATORY DATA: EKG shows sinus rhythm, nonspecific intraventricular conduction delay, nonspecific ST and T-wave abnormalities, left anterior fascicular block. Chest x-ray shows no acute disease. LABORATORY DATA: Includes WBC 9.1, hemoglobin 12.9, platelets 210. Potassium 3.3, BUN 22, creatinine 1.15. Troponin 2.09, CK 255. IMPRESSION: Probable non-ST elevation myocardial infarction in a 67-year-old white male with a history of coronary artery disease, diabetes, hypertension, sleep apnea, hyperlipidemia, transient ischemic attack. Cardiac enzymes are indeed suggestive of non-ST elevation myocardial infarction. He does have a new left bundle branch block-like conduction delay on EKG. He denies any definite chest pain symptoms, although he has had a new-onset fairly severe dyspnea on exertion over the last several weeks. This may be his anginal equivalent. There is no definite evidence for acute congestive heart failure. The etiology of the rash on his leg is not entirely clear. Apparently, there is no evidence for deep venous thrombosis. It may be a cellulitis. RECOMMENDATIONS: 1. Continue his TRAVIS inhibitor and initiate beta clarissa therapy. 2. Continue daily aspirin. 3. Cardiac catheterization today, if it can be placed on the schedule. 4. Check a fasting lipid profile and continue his statin. MD ANGUS Alcantar/olegario , 08:43 AM , 08:53 AM [place]
--- NOTE | 2018-04-07 11:46 | P.PN ---
Subjective Interval history: Follow up RLE cellulitis/NSTEMI April 07, 2018, patient seen and examined, no CP/SOB/dizziness. Currently afebrile. NPO Physical Exam Vital signs: Vital Signs 04/06/18 15:36 04/06/18 18:36 04/07/18 00:30 Temperature 98.8 F 98.8 F Pulse Rate 120 H 112 H 81 Respiratory Rate 18 18 15 Blood Pressure 144/67 H 127/60 122/66 Pulse Oximetry 97 97 96 04/07/18 00:52 04/07/18 01:40 04/07/18 02:57 Temperature 98.3 F Pulse Rate 81 88 88 Respiratory Rate 15 18 Blood Pressure 122/66 125/77 Pulse Oximetry 98 04/07/18 04:00 04/07/18 04:49 04/07/18 05:49 Temperature 98.5 F Pulse Rate 81 83 81 Respiratory Rate 16 Blood Pressure 112/72 Pulse Oximetry 99 04/07/18 06:00 04/07/18 08:00 Temperature 97.9 F Pulse Rate 78 91 H Respiratory Rate 18 Blood Pressure 137/81 Pulse Oximetry 97 Intake & Output 04/06/18 04/07/18 04/07/18 18:59 06:59 18:59 Intake Total 855 / 855 50 / 50 Balance 855 / 855 50 / 50 Weight 124.738 kg 126.8 kg Intake: IV 615 / 615 50 / 50 Zosyn 3.375 GM Premix 50 ML @ 50 / 50 50 / 50 100 mls/hr IV.SIG Q6H ANGIE Rx#: [id number] Vancomycin Inj 1,500 MG In NS 515 / 515 Inj 500 ML @ 257.5 mls/hr IV. SIG Q18H ANGIE Rx#:[id number] Oral 240 / 240 Other: # Voids 0 Date of Last Bowel Movement 04/06/18 04/06/18 Weight On Admission 125.8 kg Narrative: GENERAL: NAD SKIN: Erythematous and swollen right lower extremity from ankle to knee without any areas of fluctuance or active drainage. Warm to the touch. HEAD: Normocephalic. EYES: No scleral icterus. No injection or drainage. NECK: Supple, trachea midline. No JVD or lymphadenopathy. CARDIOVASCULAR: Regular rate and rhythm without murmurs, gallops, or rubs. RESPIRATORY: Breath sounds equal bilaterally. No accessory muscle use. GASTROINTESTINAL: Abdomen soft, non-tender, nondistended. MUSCULOSKELETAL: No cyanosis, or edema. BACK: Nontender without obvious deformity. No CVA tenderness. Results - Labs CBC & Chem 7: 04/07/18 06:17 04/07/18 06:17 Laboratory Results - last 24 hr 04/06/18 04/06/18 04/06/18 18:40 18:40 18:40 WBC 12.3 H RBC 4.91 Hgb 14.8 Hct 43.4 MCV 88.3 MCH 30.1 MCHC 34.1 RDW 13.5 Plt Count 246 MPV 9.0 Prelim Diff (Auto) Neut % (Auto) 64.4 Lymph % (Auto) 21.7 [place] % (Auto) 11.0 H Eos % (Auto) 2.1 Baso % (Auto) 0.8 Neut # (Auto) 8.0 H Lymph # (Auto) 2.7 [place] # (Auto) 1.4 H Eos # (Auto) 0.3 Baso # (Auto) 0.1 WBC Differential . Diff Scan Differential Comment Auto diff final PT INR APTT Sodium Cancelled Potassium Cancelled Chloride Cancelled Carbon Dioxide Cancelled Anion Gap Cancelled BUN Cancelled Creatinine Cancelled Estimated GFR Cancelled POC Glucose Random Glucose Cancelled Lactic Acid 2.6 H Calcium Cancelled Total Creatine Kinase Troponin I C-Reactive Protein B-Natriuretic Peptide 04/06/18 04/06/18 04/06/18 18:40 18:40 20:10 WBC RBC Hgb Hct MCV MCH MCHC RDW Plt Count MPV Prelim Diff (Auto) Neut % (Auto) Lymph % (Auto) [place] % (Auto) Eos % (Auto) Baso % (Auto) Neut # (Auto) Lymph # (Auto) [place] # (Auto) Eos # (Auto) Baso # (Auto) WBC Differential Diff Scan Differential Comment PT 10.8 INR 1.1 APTT 22.1 L Sodium 136 Potassium 3.3 L Chloride 100 Carbon Dioxide 27.7 Anion Gap 8 BUN 23 H Creatinine 1.44 H Estimated GFR 49 L POC Glucose Random Glucose 170 H Lactic Acid Calcium 9.1 Total Creatine Kinase Troponin I 2.27 H* C-Reactive Protein 13.00 H B-Natriuretic Peptide 74 04/07/18 04/07/18 04/07/18 00:36 01:00 01:49 WBC RBC Hgb Hct MCV MCH MCHC RDW Plt Count MPV Prelim Diff (Auto) Neut % (Auto) Lymph % (Auto) [place] % (Auto) Eos % (Auto) Baso % (Auto) Neut # (Auto) Lymph # (Auto) [place] # (Auto) Eos # (Auto) Baso # (Auto) WBC Differential Diff Scan Differential Comment PT INR APTT Sodium Potassium Chloride Carbon Dioxide Anion Gap BUN Creatinine Estimated GFR POC Glucose 130 H 120 H Random Glucose Lactic Acid Calcium Total Creatine Kinase 255 Troponin I 2.09 H* C-Reactive Protein B-Natriuretic Peptide 04/07/18 04/07/18 04/07/18 02:45 06:17 06:17 WBC 9.1 RBC 4.11 L Hgb 12.9 L Hct 35.9 L MCV 87.2 MCH 31.4 MCHC 36.0 RDW 13.8 Plt Count 210 MPV 8.9 Prelim Diff (Auto) Slide review pending Neut % (Auto) 60.2 Lymph % (Auto) 25.9 [place] % (Auto) 9.4 H Eos % (Auto) 3.6 Baso % (Auto) 0.9 Neut # (Auto) 5.5 Lymph # (Auto) 2.4 [place] # (Auto) 0.8 Eos # (Auto) 0.3 Baso # (Auto) 0.1 WBC Differential . Diff Scan Auto diff confirmed Differential Comment . PT INR APTT 31.4 D Sodium 138 Potassium 3.3 L Chloride 103 Carbon Dioxide 27.7 Anion Gap 7 BUN 22 H Creatinine 1.15 Estimated GFR 64 L POC Glucose Random Glucose 111 H Lactic Acid Calcium 8.4 L Total Creatine Kinase 146 Troponin I 1.49 H* C-Reactive Protein B-Natriuretic Peptide 04/07/18 04/07/18 08:24 09:31 WBC RBC Hgb Hct MCV MCH MCHC RDW Plt Count MPV Prelim Diff (Auto) Neut % (Auto) Lymph % (Auto) [place] % (Auto) Eos % (Auto) Baso % (Auto) Neut # (Auto) Lymph # (Auto) [place] # (Auto) Eos # (Auto) Baso # (Auto) WBC Differential Diff Scan Differential Comment PT INR APTT 32.4 H Sodium Potassium Chloride Carbon Dioxide Anion Gap BUN Creatinine Estimated GFR POC Glucose 152 H Random Glucose Lactic Acid Calcium Total Creatine Kinase Troponin I C-Reactive Protein B-Natriuretic Peptide Microbiology 04/06/18 18:40 Blood - Peripheral Aerobic Blood Culture - Preliminary No growth in 1 day 04/06/18 18:40 Blood - Peripheral Anaerobic Blood Culture - Preliminary No growth in 1 day 04/06/18 18:45 Blood - Peripheral Aerobic Blood Culture - Preliminary No growth in 1 day 04/06/18 18:45 Blood - Peripheral Anaerobic Blood Culture - Preliminary No growth in 1 day - Imaging Impressions Venous Doppler Study 04/06/18 18:35 CONCLUSION: 1. The study is negative for lower extremity deep venous thrombosis. 2. Mildly prominent lymph nodes in the right groin measuring 3.3 and 2.6 cm. Chest X-Ray 04/06/18 18:49 CONCLUSION: Mild compensated cardiomegaly without infiltrate or failure Assessment and Plan - Plan 67-year-old man with 1. NSTEMI/CAD Continue with ACS ruled out per protocol serial cardiac enzyme and EKGs Heparin drip, beta-clarissa, aspirin, nitroglycerin paste, starting Cardiology consulted, appreciate assistance and plan left heart catheterization dated April 07, 2018 Check 2D echo 2. Right lower extremity cellulitis Blood cultures pending Continue with vancomycin/Zosyn 3. Diabetes mellitus Sliding scale insulin. All hyperglycemic agents on hold Monitor blood glucose 4. Hypertension/hyperlipidemia Continue home medications 5. AK I Creatinine 1.44, baseline 0.9 Renal indices improving IV fluid hydration Monitor renal DVT prophylaxis: Heparin
--- NOTE | 2018-04-07 15:27 | ECG ---
Date Performed: 04/07/2018 Time Performed: 06:30:16 PTAGE: 67 years EKG: Sinus rhythm Left axis deviation IV conduction defect Poor R wave progression - cannot rule out anteroseptal infa rct Lateral ST-T changes may be due to myocardial ischemia Abnormal ECG PREVIOUS TRACING : 04/07/2018 01.50 Since the previous tracing, no significant change noted DOCTOR: Siobhan Valencia Interpretating Date/Time 04/07/2018 15:26:06
--- NOTE | 2018-04-07 15:27 | ECG ---
Date Performed: 04/07/2018 Time Performed: 01:50:36 PTAGE: 67 years EKG: Sinus rhythm Left axis deviation Left bundle branch block Abnormal ECG PREVIOUS TRACING : 04/06/2018 19.55 Since the previous tracing, no significant change noted DOCTOR: Siobhan Valencia Interpretating Date/Time 04/07/2018 15:26:13
--- NOTE | 2018-04-07 15:28 | ECG ---
Date Performed: 04/06/2018 Time Performed: 19:55:17 PTAGE: 67 years EKG: Sinus rhythm MARKED LEFT AXIS DEVIATION LEFT BUNDLE BRANCH BLOCK ABNORMAL ECG PREVIOUS TRACING : 03/14/2009 05.48 Since the previous tracing, no significant change noted DOCTOR: Siobhan Valencia Interpretating Date/Time 04/07/2018 15:26:20
[2018-04-07] MEDS ORDERED: Heparin/NS PF Inj 1,500 ML ONE (15:54)
[2018-04-07] MEDS ORDERED: fentaNYL Citrate Inj 100 MCG/2 ML Ampul ONE (15:54)
[2018-04-07] MEDS ORDERED: Heparin 10,000 UNITS/10 ML Vial (for IV use) ONE (15:55)
[2018-04-07] MEDS ORDERED: Lidocaine PF 1% Inj 30 ML Vial ONE (15:58)
--- NOTE | 2018-04-07 17:13 | CATHPROC ---
[employer] HIS Report Study Information Study Number Admission Scheduled Start Study Start [id number] Apr 06 2018 8:17PM 04/07/2018 Apr 07 2018 3:51PM [facility] Electrophysiology Study Admit Source Facility Department Other [facility] Physician and Clinical Staff Initial Campbell Singh Clutch Specialist Yanira White RN Recorder Lexis Puente,RT(R) Scrub Tere Grayson ,RT(R) Procedures Performed Procedure Location (Site) Vessel Name Angiogram LV LV Ventricle Coronary Angiograms LCA Left Coronary IVUS Lft Main Left Coronary L Heart Cath Wire insertion Radial (right) Radial Art. Equipment Time Remote Medical Coder Description Size Mfg Part Number Used/Scraped [id number] 16:46 [employer] WIRE, ASAHI PROWATER 180CM 180CM Used *[id number] 16:47 [employer] WIRE, ASAHI PROWATER 180CM 180CM Used *[id number] TRANSDUCER, TRUWAVE [id number] 16:08 HANSEN SETH * Used W/STOCKCOCK *[id number] *[id number] *[id number] WIRE, HYDROSTEER 150CM [id number] 16:23 DAIG/[employer] 150CM Used ANGLED GLIDE *[id number] 443825 16:08 MALLINCKRODT SYRINGE, ANGIOMAT 150ML 150ML *[id number] Used 2S [employer] CONCEPT DRAPE, RADIAL FEMORAL FULL 16:08 * [id number] *[id number] Used DEVELOPMENT BODY [id number] 16:08 Horse[employer]ot BLANKET,WARM AIR CCL * Used *[id number] 16:08 [employer] PACK, CCL CUSTOM * Used *[id number] 16:08 [employer]ot SUPPORT, ARTERIAL ADULT 78636 *[id number] Used [id number] 16:08 Visitar PACER PEN, SKIN DUAL W/ RULER * Used *[id number] 16:36 MEDTRONIC MPA 1 DXTERITY CATHETER FR 6 [id number] Used BAND, RADIAL COMPRESSION TR [id number] 16:57 TXCOM 29CM Used LARGE 29 *[id number] SHEATH, FR6 RADIAL PRELUDE 16:08 TXCOM FR 6 [id number] Used EASE 11CM [id number] 16:08 TXCOM WIRE, EXCHANGE 260CM 3MMJ 260CM Used *[id number] 16:08 NAMIC MANIFOLD, 4 PORT * Used *[id number] [id number] 16:36 NAMIC TUBING, HIGH PRESSURE 48" 48" Used *[id number] 16:36 NYCOMED OMNIPAQUE, 350 MG, 150ML 150ML [id number] Used 16:08 NYCOMED OMNIPAQUE, 350 MG, 150ML 150ML [id number] Used CATHETER, FR5 OPTITORQUE [id number] 16:13 TERUMO MEDICAL FR 5 Used RADIAL TIG 4.0 *[id number] CATHETER, ANVIK [employer]OS [id number] 16:47 VOLCANO Used IMAGING *[id number] Equipment Model, Serial, Lot Number and Expiration Data Description Model Number Serial Number Lot Number Expiration Date CATHETER, ANVIK [employer] 26689 [id number] 11-09-2019 IMAGING MPA 1 DXTERITY CATHETER [id number] 11-20-2019 WIRE, HYDROSTEER 150CM [id number] 02-09-2020 ANGLED GLIDE History: Current Medications Medication Dosage/Unit Route Frequency Last Date/Time Taken CARVEDILOL HEPARIN History: Allergies Allergy Reaction No Known Allergies History: Risk Factors Family History of Hypertension Dyslipidemia Previous ND Previous Heart Failure Premature CAD Yes Yes No No No Prior Valve Prior PCI Prior PCIDate Prior CABG Surgery No Yes 05/12/2005 No Cerebrovascular Peripheral Artery Chronic Lung On Dialysis Diabetes Disease Disease Disease No Yes No No No History: Symptoms/Diagnosis Selection Items Chest pain History: CV Disease Selection Items Known CAD History: Stress Tests Stress or Imaging Studies Performed No History: Other Current Smoker Method Quit Packs a Day No Cigarettes 20 Years Ago 1 Labs Hgb (g/dl) Hct (%) WBC (l/cumm) Platelets (thousands) 11.60-17.00 35.00-51.00 4.00-11.00 150.00-450.00 12.9 35.9 9.1 210 Glucose (mg/dl) BUN (mg/dl) Creatinine (mg/dl) BUN:Creatinine (1:x) 74.00-106.00 7.00-18.00 0.50-1.30 10.00-20.00 64 22 1.2 18.3 Na (meq/l) K (meq/l) 136.00-145.00 3.50-5.10 138 3.3 INR (PTT:PT) 0.90-1.10 1.1 Troponin I (ng/ml) CPK (u/l) 0.02-0.05 26.00-308.00 1.49 146 Medication Medication Total Dose (Bolus/Oral) Medication Total Dosage/Unit 1% XYLOCAINE 20 mL FENTANYL 50 mcg HEPARIN 6400 units RADIAL COCKTAIL 5 mL (Bolus) VERSED 1 mg Medications (Bolus/Oral) Medication Time Given Dosage/Unit Administered By Reason VERSED 04/07/2018 4:08:16 PM 1 mg Yanira White 1 mg VERSED given by Yanira White RN via Peripheral IV. FENTANYL 04/07/2018 4:09:22 PM 50 mcg Yanira White 50 mcg FENTANYL given by Yanira White, AUDRA via Peripheral IV. 1% XYLOCAINE 04/07/2018 4:20:18 PM 20 mL Campbell Juan 20 mL 1% XYLOCAINE given by Campbell Juan in Right Radial via Subcutaneous. Ntg 200mcg Verapamil 2.5mg Heparin RADIAL COCKTAIL 04/07/2018 4:22:58 PM 5 mL (Bolus) Campbell Juan 2500U 5 mL (Bolus) RADIAL COCKTAIL given by Campbell Juan via Radial. Using [Solution Name]. Reason: Ntg 200 mcg Verapamil 2.5mg Heparin 2500U. HEPARIN 04/07/2018 4:46:40 PM 6400 units Yanira White 6400 units HEPARIN given by Yanira White RN via Peripheral IV. Medication (Drip) Medication Time Given Dosage/Unit Concentration/Unit Diluent (ml) Solution IV Solutions 04/07/2018 3:52:05 PM 0 mL (IV) NaCl .9 IV Solutions given by Yanira White RN in Left Forearm via Peripheral IV. Pump/Drip Flow = 20 ml/h r using NaCl .9. Initial Case Assessment Cardiovascular HR Rhythm NIBP 90 reg 136/79 Edema Present Skin color Skin None Normal Warm Circulatory - Lower Extremities Color Lower Right Color Lower Left Normal Normal Neurological State Oriented to time-place- Alert Moves all extremities person Respiration - General Respiration Rate SpO2 (%) (B/min) 19 97 Final Case Assessment Cardiovascular HR Rhythm NIBP Chest Pain 95 reg 143/89 0 Edema Present Skin color Skin None Normal Warm Circulatory - Right Pulses Dorsalis Pedis Femoral Radial 2 2 2 Scale (0,1,2,3,4,d) Scale (0,1,2,3,4,d) Circulatory - Lower Extremities Color Lower Right Color Lower Left Normal Normal Neurological State Oriented to time-place- Alert Moves all extremities person Respiration - General Respiration Rate SpO2 (%) (B/min) 11 98 Chronological Log Time Study Chronological Log 15:49:21 Patient arrived via Bed. 15:51:22 Patient Name, D.O.B, / Armband Verified By R.N. 15:51:32 Consent signed by the physician and the patient and verified by the [facility] staff. 15:51:33 Pre-op and post- op instructions given; patient acknowledges understanding of instructions. 15:51:34 Verbal Stimulation=2 Physical Stimulation=2 Airway=2 Respiration=2 TOTAL=8. (0=absent, 1=li mited, 2=present) 15:51:38 Patient has been NPO for More than 6Hrs. 15:51:39 Skin Breakdown-none 15:51:40 A # 22 IV was noted in the Hand (right). Grade = 0 15:51:52 A # 20 IV was noted in the Forearm (left). Grade = 0 15:52:05 IV Solutions given by Yanira White, AUDRA in Left Forearm via Peripheral IV. Pump/Drip Flow = 20 ml/hr using NaCl .9. 15:52:43 heparin discontinued in pts room Vitals capture started with the following parameters, Patient=Adult, Interval=5 min, Initial Pr ujgfkb=070 mmHg, 15:53:42 Deflation Rate=5 mmHg, Cuff placed on Left Arm 15:53:58 History and physical on the chart or being dictated. Assessment: Initial Case, HR=90 BPM, Rhythm=reg, JNFU=808/79 mmhg, Edema=None, Color=Normal, Sk in = Warm Lower Right Extremities: Color=Normal 15:53:59 Lower Left Extremities: Color=Normal Neurological: State=Alert, Ox3, ALVAREZ Respiration: Resp=19 B/min, SpO2=97 % 15:54:01 Bilateral groins prepped with 2% chlorhexidine, and draped after a 3 minute waiting time. 15:54:05 MD arrived. 15:54:19 HR=91 bpm, TFER=675/79 mmhg, SpO2=99.0 %, Pain=0, Marcy=10, Peoples=2 15:54:59 Reference ECG taken 15:59:18 HR=91 bpm, ROSV=264/79 mmhg, SpO2=96.0 %, Resp=17 B/min, Pain=0, Marcy=10, Peoples=2 16:04:19 HR=90 bpm, THCB=395/79 mmhg, SpO2=97.0 %, Resp=19 B/min, Pain=0, Marcy=10, Peoples=2 16:08:16 1 mg VERSED given by Yanira White, AUDRA via Peripheral IV. 16:09:12 Pressure channel 1 zeroed. 16:09:20 HR=88 bpm, LSGU=388/83 mmhg, SpO2=97.0 %, Resp=17 B/min, Pain=0, Marcy=10, Peoples=2 16:09:22 50 mcg FENTANYL given by Yanira White, AUDRA via Peripheral IV. 16:14:19 HR=93 bpm, YLMM=939/83 mmhg, SpO2=94.0 %, Resp=12 B/min, Pain=0, Marcy=10, Peoples=2 16:19:22 HR=88 bpm, GBMR=393/81 mmhg, SpO2=93.0 %, Resp=19 B/min, Pain=0, Marcy=10, Peoples=2 Time Out. Correct patient, correct procedure, correct physician, labs, allergies, and equipment verified with soap slabber 16:19:37 team present. Fire risk assesment completed (see hard stop sheet for coding). Time Out Conc urred by MD and individual staff in procedure. 16:19:40 Case Start 16:20:12 Verbal Stimulation=2 Physical Stimulation=2 Airway=2 Respiration=2 TOTAL=8. (0=absent, 1=li mited, 2=present) 16:20:18 20 mL 1% XYLOCAINE given by Campbell Juan in Right Radial via Subcutaneous. 16:21:39 Access site was Right Radial Artery . 16:21:44 A wire was inserted via Radial (right). A SHEATH, FR6 RADIAL PRELUDE EASE 11CM FR 6 was advanced into the Radial (right) using the Perc utaneous 16:21:51 technique. A CATHETER, FR5 OPTITORQUE RADIAL TIG 4.0 FR 5 was advanced over a wire. OMNIPAQUE, 350 MG, 150 ML 150ML 16:22:32 was used for injections. 5 mL (Bolus) RADIAL COCKTAIL given by Campbell Juan via Radial. Using [Solution Name]. Reason: N tg 200mcg 16:22:58 Verapamil 2.5mg Heparin 2500U. 16:23:24 A WIRE, HYDROSTEER 150CM ANGLED GLIDE 150CM was inserted via Radial (right). 16:24:23 HR=90 bpm, YBLY=764/76 mmhg, SpO2=91.0 %, Resp=20 B/min, Pain=0, Marcy=10, Peoples=2 16:25:01 Wire removed Recorded Pressure: Ao, HR=90, Condition=Condition 1 16:26:12 (Aorta) Ao 101/58/76 16:26:18 The LCA was injected and visualized at various angles. OMNIPAQUE, 350 MG, 150ML 150ML used . Recorded Pressure: Dst-A, IP=917, Condition=Condition 1 16:29:04 (Distal Arterial) Dst-A 123/81/101 16:29:22 OY=319 bpm, WLNA=374/84 mmhg, SpO2=93.0 %, Resp=22 B/min, Pain=0, Marcy=10, Peoples=2 16:29:58 Catheter was removed A JL 3.5 INFINITI CATHETER FR 6 was advanced over a wire. OMNIPAQUE, 350 MG, 150ML 150ML was us ed for 16:30:02 injections. 16:34:23 HR=94 bpm, YMYZ=230/87 mmhg, SpO2=96.0 %, Resp=16 B/min, Pain=0, Amrcy=10, Peoples=2 After removing the current catheter a MPA 1 DXTERITY CATHETER FR 6 was advanced over a WIRE, EX CHANGE 260CM 16:34:31 3MMJ 260CM. Recorded Pressure: LV, HR=96, Condition=Condition 1 16:36:53 (Left Ventricle) LV 146/19/35 16:38:20 The LV was injected at 12 cc/sec for a total of 41. OMNIPAQUE, 350 MG, 150ML 150ML used. Recorded Pressure: LV, Ao, HR=96, Condition=Condition 1 16:38:46 (Left Ventricle) LV 138/18/33, (Aorta) Ao 128/78/103 16:39:23 HR=96 bpm, ZTRS=678/86 mmhg, SpO2=95.0 %, Resp=13 B/min, Pain=0, Marcy=10, Peoples=2 16:40:47 Catheter was removed A JL 3.5 GUIDE CATHETER FR 6 was advanced over a wire. OMNIPAQUE, 350 MG, 150ML 150ML was used for 16:42:38 injections. 16:44:26 HR=95 bpm, EEEG=052/87 mmhg, SpO2=94.0 %, Resp=15 B/min, Pain=0, Marcy=10, Peoples=2 16:46:39 A WIRE, [employer] PROWATER 180CM 180CM was inserted via Radial (right). 16:46:40 6400 units HEPARIN given by Yanira White RN via Peripheral IV. 16:49:14 An CATHETER, ANVIK [employer] IMAGING was advanced through the lesion. Images saved ont o IVUS hard drive 16:49:25 HR=98 bpm, IPTW=733/88 mmhg, SpO2=94.0 %, Resp=13 B/min, Pain=0, Marcy=10, Peoples=2 16:50:26 IVUS in progress using CATHETER, ANVIK [employer] IMAGING Mean Luminal Area measured 5.3 16:54:28 HR=97 bpm, LBMK=128/89 mmhg, SpO2=96.0 %, Resp=21 B/min, Pain=0, Marcy=10, Peoples=2 16:56:35 Catheter was removed 16:56:41 Wire removed 16:56:46 Catheter was removed 16:56:53 Case End (Physician broke scrub) Assessment: Final Case, HR=95 BPM, Rhythm=reg, INBT=030/89 mmhg, Chest Pain=0, Edema=None, Panaca r=Normal, Skin = Warm Right Pulses: Lee Ped=2, Femoral=2, Radial=2 16:56:56 Lower Right Extremities: Color=Normal Lower Left Extremities: Color=Normal Neurological: State=Alert, Ox3, ALVAREZ Respiration: Resp=11 B/min, SpO2=98 % 16:57:30 Catheter(s) removed without difficulty Radial Compression Device Used. ~VOLUME ML~ mLs of air placed in BAND, RADIAL COMPRESSION TR LA RGE 29 16:57:35 29CM. Affected hand ~O2 SATURATION~ % O2 saturation. 16:57:47 No case complications noted. 16:57:48 Cine recording checked. 16:57:49 Bedside Report will be given. 16:57:54 A Left Heart Cath was performed. 16:57:56 Clinical correlaton risk stratification. 16:59:27 HR=97 bpm, DVDH=772/83 mmhg, SpO2=97.0 %, Resp=19 B/min, Pain=0, Marcy=10, Peoples=2 17:04:30 TJDK=178/88 mmhg, SpO2=96.0 %, Pain=0, Marcy=10, Peoples=2 17:05:37 Vitals capture stopped. End Study - Contrast Media Used In Study Contrast Total Opened (mL) Total Used (mL) Total Wasted (mL) Omnipaque 350 155 155 0 End Study - Maximum Contrast Load Max Contrast Load (mL) 528.4 End Study - Radiation Exposure Fluoro Time (minutes) 6.5 End Study - Sheaths Sheaths Pulled By Sheath Hold Time (min) Tere Grayson End Study - Patient Disposition Complications Transferred To No Regular Bed
--- NOTE | 2018-04-07 17:27 | MA ---
cc: Campbell Juan MD DATE: 04/07/2018 PROCEDURE: Left heart catheterization, selective coronary angiography, left ventriculography, intravascular ultrasound imaging of the proximal LAD and mid left main. DESCRIPTION OF PROCEDURE: The patient was brought to the cardiac catheterization laboratory in a fasting state, after having signed informed consent. The right radial region was prepped and draped as per policy and anesthetized with 1% lidocaine. Arterial access was obtained via the right radial artery and a 6-Turkish sheath placed. Coronary arteriography was performed using a Solvang catheter and then further shots were taken with a Tiffani left 3.5. Intravascular ultrasound imaging was done as described below. There were no apparent immediate complications. A radial artery compression band was applied to his right wrist at the end of the case to achieve adequate hemostasis. HEMODYNAMIC DATA: Left ventricle 138 with an end diastolic pressure 18, aorta 128/78 with a mean of 103. There was no significant transvalvular aortic gradient on pullback of the pigtail catheter. CORONARY ARTERIOGRAPHY: The left main has somewhat eccentric up to 50% mid stenosis. This is most evident on the caudal views. The left anterior descending is fairly tortuous proximally, giving rise to a small to medium size diagonal, which may have up to 20% proximal stenosis. One view of the proximal LAD suggests there may be a region of 40-50% stenosis. The mid to distal LAD has diffuse up to 20% disease. The left circumflex is a medium-sized vessel giving rise to 2 small obtuse marginals, the first of which has up to 30% ostial stenosis. There is a high obtuse marginal versus ramus intermedius, which has minimal luminal irregularities. The right coronary artery is diffusely diseased. It is basically totally occluded at its ostium. There are left to right collaterals as well as few homo collaterals and bridging collaterals supplying the distal vessel. LEFT VENTRICULOGRAPHY: Contrast injection the left ventricle reveals no segmental wall motion abnormalities. Ejection fraction is estimated at 50%. INTRAVASCULAR ULTRASOUND IMAGING: Due to the borderline nature of the left main disease, it was decided to perform intravascular ultrasound imaging. 70 units/kg of heparin was administered total. Using a 6-Turkish Tiffani left 3.5 guiding catheter, the ostium of the left main was reengaged. A 0.014 P[place]ater guide wire was advanced into the LAD. A [employer] intravascular ultrasound catheter was carefully introduced into the proximal LAD. There is diffuse up to 50% diameter stenosis of the proximal LAD with the worst area demonstrating 61% area stenosis. The ultrasound catheter was withdrawn to the mid left main, the main region of interest. The minimum lumen area is measured at 5.3 square mm. Visually, there also appears to be 50-60% diameter stenosis in the mid left main. CONCLUSIONS: 1. Xapvwrvv-hu-eurlgj disease of the proximal LAD and of the right coronary. 2. 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 2. Good left to right collaterals. 3. Low normal left ventricular systolic function with ejection fraction estimated at 50%. MD ANGUS Alcantar/delmy , 05:07 PM , 05:14 PM [place]
--- NOTE | 2018-04-07 19:32 | ECHRPT ---
Indication: CHEST PAIN CONCLUSIONS Normal left ventricular size. Moderate concentric left ventricular hypertrophy. The left ventricular systolic function is low normal with an estimated ejection fraction in the rang e of 50- 55%. There was limited left ventricular wall motion assessment due to poor endocardial visualization. There appears to be hypokinesis of the mid to basal septal and inferior mckeon in the A4C and A2C vie ws. Thickened atrial septum is noted with morphological features most consistent with a lipomatous atria l septum. Mild mitral valve regurgitation. There is trace tricuspid valve regurgitation. BP: / HR: Rhythm: Sinus MEASUREMENTS (Male / Female) Normal Values Technical Quality:Technically difficult study 2D ECHO LV Diastolic Diameter PLAX 4.8 cm 4.2 - 5.9 / 3.9 - 5.3 cm LV Systolic Diameter PLAX 3.8 cm IVS Diastolic Thickness 1.5 cm 0.6 - 1.0 / 0.6 - 0.9 cm LVPW Diastolic Thickness 1.4 cm 0.6 - 1.0 / 0.6 - 0.9 cm LV Relative Wall Thickness 0.6 RV Internal Dim ED PLAX 2.9 cm LVOT Diameter 1.9 cm Aortic Root Diameter 3.2 cm LA Systolic Diameter LX 4.2 cm 3.0 - 4.0 / 2.7 - 3.8 cm M-MODE AV Cusp Separation MM 1.7 cm DOPPLER AV Peak Velocity 226.0 cm/s AV Peak Gradient 20.4 mmHg AV Mean Gradient 13.0 mmHg AV Velocity Time Integral 46.3 cm LVOT Peak Velocity 94.7 cm/s LVOT Peak Gradient 3.6 mmHg LVOT Velocity Time Integral 16.6 cm AV Area Cont Eq vti 1.0 cm AV Area Cont Eq pk 1.2 cm Mitral E Point Velocity 92.3 cm/s Mitral A Point Velocity 127.0 cm/s Mitral E to A Ratio 0.7 LV E' Lateral Velocity 10.4 cm/s Mitral E to LV E' Lateral Ratio 8.9 LV E' Septal Velocity 5.3 cm/s Mitral E to LV E' Septal Ratio 17.5 TR Peak Velocity 240.0 cm/s TR Peak Gradient 23.0 mmHg PV Peak Velocity 84.2 cm/s PV Peak Gradient 2.8 mmHg FINDINGS LEFT VENTRICLE Normal left ventricular size. Moderate concentric left ventricular hypertrophy. The left ventricular systolic function is low normal with an estimated ejection fraction in the rang e of 50- 55%. There was limited left ventricular wall motion assessment due to poor endocardial visualization. There appears to be hypokinesis of the mid to basal septal and inferior mckeon in the A4C and A2C vie ws. RIGHT VENTRICLE Normal right ventricular size and systolic function. LEFT ATRIUM The left atrial size is normal. RIGHT ATRIUM The right atrial size is normal. ATRIAL SEPTUM No atrial level shunt is demonstrated by color flow Doppler interrogation. Thickened atrial septum is noted with morphological features most consistent with a lipomatous atria l septum. AORTA The aortic root and proximal ascending aorta are not well visualized. MITRAL VALVE Mild mitral valve regurgitation. AORTIC VALVE Trileaflet aortic valve. No aortic valve stenosis or regurgitation. TRICUSPID VALVE There is trace tricuspid valve regurgitation. PULMONARY VALVE No pulmonary valve regurgitation or stenosis. VESSELS The inferior vena cava is normal in size. PERICARDIUM No pericardial effusion. Karson Merritt (Electronically Signed) Final Date:07 April 2018 19:31
[2018-04-08] MEDS: Heparin Drip 25,000 UNIT/250 ML BAG IV.CONT PRN ×2 (01:00→21:34)
[2018-04-08] MEDS: Sod Chloride 0.9% Inj 1,000 ML IV.CONT SCH ×3 (02:57→21:33)
[2018-04-08] MEDS: Piperacil/Tazo 3.375 GM Premix 50 ML IV.SIG SCH ×4 (02:57→21:32)
[2018-04-08] MEDS: Insulin NovoLOG Aspart Correctional Sugar Inj SQ SCH ×5 (02:57→21:32)
[2018-04-08 07:05] LABS: Baso # (Auto) 0.1 th/mm3 (0.0-0.2); Baso % (Auto) 0.6 % (0.0-2.0); Eos # (Auto) 0.2 th/mm3 (0.0-0.4); Eos % (Auto) 2.8 % (0.0-4.0); Hematocrit 34.2 % (39.0-51.0); Hemoglobin 12.3 gm/dL (13.0-17.0); Lymph # (Auto) 1.7 th/mm3 (1.0-4.8); Lymph % (Auto) 18.9 % (9.0-44.0); Mean Corpuscular Hemoglobin 31.5 pg (27.0-34.0); Mean Corpuscular Volume 87.3 fL (80.0-100.0); Mean Platelet Volume 8.3 fL (7.0-11.0); Mono # (Auto) 0.7 th/mm3 (0.0-0.9); Mono % (Auto) 8.4 % (0.0-8.0); Neut # (Auto) 6.1 th/mm3 (1.8-7.7); Neut % (Auto) 69.3 % (16.0-70.0); Platelet Count 221 th/mm3 (150-450); Red Blood Count 3.91 mil/mm3 (4.50-5.90); Red Cell Distribution Width 13.4 % (11.6-17.2); White Blood Count 8.9 th/mm3 (4.0-11.0)
[2018-04-08 07:33] LABS: Alanine Aminotransferase 25 U/L (12-78); Albumin 2.6 g/dL (3.4-5.0); Anion Gap 7 meq/L (5-15); Aspartate Aminotransferase 16 U/L (15-37); Blood Urea Nitrogen 13 mg/dL (7-18); Calcium 8.5 mg/dL (8.5-10.1); Carbon Dioxide 25.1 meq/L (21.0-32.0); Chloride 107 meq/L (98-107); Glomerular Filtration Rate 77 mL/min (>89); Glucose,Random 138 mg/dL (74-106); Potassium 3.8 meq/L (3.5-5.1); Sodium 139 meq/L (136-145)
[2018-04-08 07:35] LABS: Alkaline Phosphatase 63 U/L (45-117); Total Protein 6.8 g/dL (6.4-8.2)
[2018-04-08 08:00] LABS: Eosinophils 1 % (0-4); Lymphocytes 17 % (9-44); Monocytes 7 % (0-8); Myelocytes 1 % (0-0)
[2018-04-08 08:01] LABS: Ovalocytes 1+
[2018-04-08 08:02] LABS: Platelet Estimate Normal (Normal); Platelet Morphology Normal (Normal)
[2018-04-08] MEDS ORDERED: Iohexol 350 MG/ML 100 ML Vial (for Cath Lab) IVCONTRAST ONE (08:54)
[2018-04-08] MEDS: Lisinopril 20 MG Tablet PO SCH (09:18)
--- NOTE | 2018-04-08 10:14 | P.PNCA ---
Subjective Interval history: Denies CP, dyspnea at rest, PND, dizziness, palpitations. Medications and Allergies Active Medications: Active Medications Acetaminophen (Tylenol) 650 mg PO Q4H PRN PRN Reason: Temp > 100.4 Atorvastatin Calcium (Lipitor) 40 mg PO DAILY [facility] Last Admin: 04/08/18 09:18 Dose: 40 mg Bisacodyl (Dulcolax Supp) 10 mg RECTAL DAILY PRN PRN Reason: SEVERE CONSITIPATION Carvedilol (Coreg) 3.125 mg PO BID [facility] Last Admin: 04/08/18 09:18 Dose: 3.125 mg Dextrose (D50w Vial) 50 ml IV.PUSH UNSCH PRN PRN Reason: PER HYPOGLYCEMIA PROTOCOL Diphenhydramine HCl (Benadryl) 50 mg PO [employer] [facility] Stop: 04/11/18 08:44 Last Admin: 04/07/18 15:03 Dose: 50 mg Fentanyl Citrate (Fentanyl Inj) 50 mcg IV.PUSH [employer] [facility] Stop: 04/11/18 08:44 Last Admin: 04/07/18 16:09 Dose: 50 mcg Glucagon (Glucagon Inj) 1 mg OTHER UNSCH PRN PRN Reason: for Hypoglycemia Protocol Piperacillin/Tazobactam/Dextrose (Zosyn 3.375 Gm Premix) 50 mls @ 100 mls/hr IV.SIG Q6H [facility] Last Admin: 04/08/18 09:18 Dose: 100 mls/hr Vancomycin HCl 1,500 mg/ (Sodium Chloride) 515 mls @ 257.5 mls/hr IV.SIG Q18H [facility] Last Infusion: 04/07/18 20:52 Dose: Infused Sodium Chloride (Ns Inj) 1,000 mls @ 100 mls/hr IV.CONT .Q10H [facility] Last Admin: 04/08/18 02:57 Dose: 100 mls/hr Heparin Sodium/Dextrose (Heparin/D5w 25,000 U/250 Ml) 25,000 unit in 250 mls @ 0 mls/hr IV.CONT TITRATE PRN; Protocol PRN Reason: Per Protocol Last Admin: 04/08/18 01:00 Dose: 1,200 units/hr, 12 mls/hr Insulin Aspart (Novolog Insulin Correctional Sugar Inj) 0 unit SQ ACHS AND 3AM [facility]; Protocol Last Admin: 04/08/18 09:03 Dose: Not Given Lisinopril (Prinivil) 20 mg PO DAILY [facility] Last Admin: 04/08/18 09:18 Dose: 20 mg Midazolam HCl (Versed Inj) 1 mg IV.PUSH [employer] [facility] Stop: 04/11/18 08:44 Last Admin: 04/07/18 16:08 Dose: 1 mg Miscellaneous Information ([facility] Ordered Lab Info) 0 each OTHER ONCE ONE Stop: 04/09/18 03:46 Pharmacy Profile Note (Vancomycin Consult Pharmacy) 1 each OTHER UNSCH PRN PRN Reason: Pharmacy to dose Prochlorperazine (Compazine Supp) 25 mg RECTAL Q12H PRN PRN Reason: NAUSEA OR VOMITING Sennosides (Senokot) 17.2 mg PO Q12H PRN PRN Reason: Moderate Constipation Sodium Chloride (Ns Flush) 2 ml IV.FLUSH BID [facility] Last Admin: 04/08/18 09:19 Dose: 2 ml Sodium Chloride (Ns Flush) 2 ml IV.FLUSH PRN PRN PRN Reason: FLUSH AFTER USING IV ACCESS Allergies Allergy/AdvReac Type Severity Reaction Status Date / Time No Known Allergies Allergy Verified 04/07/18 14:41 Home Medications Medication Instructions Recorded Confirmed Type amlodipine 2.5 mg PO DAILY 04/06/18 04/06/18 History ascorbic acid (vitamin C) [Vitamin 500 mg PO DAILY 04/06/18 04/06/18 History C] aspirin 325 mg PO DAILY 04/06/18 04/06/18 History atorvastatin 40 mg PO DAILY 04/06/18 04/06/18 History cholecalciferol (vitamin D3) 2,000 unit PO DAILY 04/06/18 04/06/18 History [Vitamin D3] cyanocobalamin (vitamin B-12) 2,500 mcg SUBLINGUAL DAILY 04/06/18 04/06/18 History [Vitamin B-12] glipizide 10 mg PO DAILY 04/06/18 04/06/18 History hydrochlorothiazide 25 mg PO DAILY 04/06/18 04/06/18 History lisinopril 20 mg PO DAILY 04/06/18 04/06/18 History metformin 1,500 mg PO QPM 04/06/18 04/06/18 History potassium chloride 20 meq PO DAILY 04/06/18 04/06/18 History sitagliptin [Januvia] 100 mg PO DAILY 04/06/18 04/06/18 History zinc 50 mg PO DAILY 04/06/18 04/06/18 History Physical Exam Vital signs: Vital Signs 04/07/18 11:00 04/07/18 12:00 04/07/18 13:00 Temperature 97.7 F Pulse Rate 88 86 80 Respiratory Rate 18 Blood Pressure 113/70 Pulse Oximetry 97 04/07/18 14:00 04/07/18 15:00 04/07/18 15:39 Temperature 97.9 F Pulse Rate 88 88 82 Respiratory Rate 16 Blood Pressure 126/78 Pulse Oximetry 97 04/07/18 18:00 04/07/18 19:00 04/07/18 20:00 Temperature 98.5 F Pulse Rate 88 98 H 94 H Respiratory Rate 18 Blood Pressure 105/46 L Pulse Oximetry 95 04/07/18 21:00 04/07/18 22:00 04/07/18 23:00 Temperature Pulse Rate 94 H 92 H 90 Respiratory Rate Blood Pressure Pulse Oximetry 04/07/18 23:31 04/08/18 00:00 04/08/18 01:00 Temperature 98.9 F Pulse Rate 93 H 88 88 Respiratory Rate 18 Blood Pressure 106/55 L Pulse Oximetry 96 04/08/18 02:00 04/08/18 03:00 04/08/18 03:39 Temperature 97.8 F Pulse Rate 70 88 82 Respiratory Rate 18 Blood Pressure 127/75 Pulse Oximetry 96 04/08/18 04:00 04/08/18 05:00 04/08/18 06:00 Temperature Pulse Rate 85 82 80 Respiratory Rate Blood Pressure Pulse Oximetry 04/08/18 08:00 Temperature 97.9 F Pulse Rate 90 Respiratory Rate 16 Blood Pressure 122/65 Pulse Oximetry 97 Intake & Output 04/07/18 04/08/18 04/08/18 18:59 06:59 18:59 Intake Total 1780 / 1780 1855 / 1855 Output Total 1400 / 1400 1250 / 1250 Balance 380 / 380 605 / 605 Weight 127.6 kg Intake: IV 1100 / 1100 1615 / 1615 NS Inj 1,000 ML @ 100 mls/hr IV 1000 / 1000 1000 / 1000 .CONT .Q10H [facility] Rx#:[id number] Zosyn 3.375 GM Premix 50 ML @ 100 / 100 100 / 100 100 mls/hr IV.SIG Q6H [facility] Rx#: [id number] Vancomycin Inj 1,500 MG In NS 515 / 515 Inj 500 ML @ 257.5 mls/hr IV. SIG Q18H [facility] Rx#:[id number] Oral 480 / 480 240 / 240 Anesthesia Amount 200 / 200 Output: Urine 1400 / 1400 1250 / 1250 Other: Date of Last Bowel Movement 04/06/18 04/06/18 # Bowel Movements 1,250 - Constitutional no acute distress - Routine Neck Exam Absent: JVD - Routine Respiratory Exam Present: CTA bilaterally - Routine Cardiovascular Exam Present: RRR, S1, S2. Absent: murmur, gallop - Routine Abdominal Exam Present: soft, normoactive bowel sounds, tenderness. Absent: organomegaly - Routine Extremities Exam Absent: cyanosis, clubbing, edema Comments: Mild, macular erythematous rash on RLE below knee persists. Results 04/08/18 06:45 04/08/18 06:45 Cardiac Enzymes 04/06/18 04/06/18 04/07/18 Range/Units 18:40 18:40 01:00 AST (15-37) U/L Troponin I 2.27 H* 2.09 H* (0.02-0.05) ng/mL B-Natriuretic Peptide 74 (0-100) pg/mL 04/07/18 04/08/18 Range/Units 06:17 06:45 AST 16 (15-37) U/L Troponin I 1.49 H* (0.02-0.05) ng/mL B-Natriuretic Peptide (0-100) pg/mL Coagulation 04/06/18 04/06/18 04/07/18 Range/Units 18:40 20:10 02:45 PT 10.8 (9.8-11.6) sec APTT 22.1 L 31.4 D (23.4-31.7) sec B-Natriuretic Peptide 74 (0-100) pg/mL 04/07/18 04/07/18 04/08/18 Range/Units 09:31 17:44 06:45 PT (9.8-11.6) sec APTT 32.4 H 111.3 H* D 32.8 H D (23.4-31.7) sec B-Natriuretic Peptide (0-100) pg/mL CBC 04/06/18 04/07/18 04/08/18 Range/Units 18:40 06:17 06:45 WBC 12.3 H 9.1 8.9 (4.0-11.0) th/mm3 RBC 4.91 4.11 L 3.91 L (4.50-5.90) mil/mm3 Hgb 14.8 12.9 L 12.3 L (13.0-17.0) gm/dL Hct 43.4 35.9 L 34.2 L (39.0-51.0) % Plt Count 246 210 221 (150-450) th/mm3 Neut # (Auto) 8.0 H 5.5 6.1 (1.8-7.7) th/mm3 Lymph # (Auto) 2.7 2.4 1.7 (1.0-4.8) th/mm3 [place] # (Auto) 1.4 H 0.8 0.7 (0.0-0.9) th/mm3 Eos # (Auto) 0.3 0.3 0.2 (0.0-0.4) th/mm3 Baso # (Auto) 0.1 0.1 0.1 (0.0-0.2) th/mm3 Comprehensive Metabolic Panel 04/06/18 04/06/18 04/07/18 Range/Units 18:40 18:40 06:17 Sodium Cancelled 136 138 Potassium Cancelled 3.3 L 3.3 L Chloride Cancelled 100 103 Carbon Dioxide Cancelled 27.7 27.7 BUN Cancelled 23 H 22 H Creatinine Cancelled 1.44 H 1.15 Calcium Cancelled 9.1 8.4 L AST (15-37) U/L ALT (12-78) U/L Alkaline Phosphatase (45-117) U/L Total Protein (6.4-8.2) g/dL Albumin (3.4-5.0) g/dL 04/08/18 Range/Units 06:45 Sodium 139 Potassium 3.8 Chloride 107 Carbon Dioxide 25.1 BUN 13 Creatinine 0.98 Calcium 8.5 AST 16 (15-37) U/L ALT 25 (12-78) U/L Alkaline Phosphatase 63 (45-117) U/L Total Protein 6.8 (6.4-8.2) g/dL Albumin 2.6 L (3.4-5.0) g/dL Intake and Output 04/07/18 04/08/18 04/08/18 22:59 06:59 14:59 Intake Total 1295 / 1295 1290 / 1290 Output Total 1400 / 1400 1250 / 1250 Balance -105 / -105 40 / 40 Intake: IV 615 / 615 1050 / 1050 NS Inj 1,000 ML @ 100 mls/hr IV 1000 / 1000 .CONT .Q10H [facility] Rx#:[id number] Zosyn 3.375 GM Premix 50 ML @ 100 / 100 50 / 50 100 mls/hr IV.SIG Q6H [facility] Rx#: [id number] Vancomycin Inj 1,500 MG In NS 515 / 515 Inj 500 ML @ 257.5 mls/hr IV. SIG Q18H [facility] Rx#:[id number] Oral 480 / 480 240 / 240 Anesthesia Amount 200 / 200 Output: Urine 1400 / 1400 1250 / 1250 Other: Date of Last Bowel Movement 04/06/18 # Bowel Movements 1,250 Weight 127.6 kg - Imaging and Cardiology Imaging: Impressions Venous Doppler Study 04/06/18 18:35 CONCLUSION: 1. The study is negative for lower extremity deep venous thrombosis. 2. Mildly prominent lymph nodes in the right groin measuring 3.3 and 2.6 cm. Chest X-Ray 04/06/18 18:49 CONCLUSION: Mild compensated cardiomegaly without infiltrate or failure Assessment and Plan - Assessment (1) Coronary artery disease Code(s): I25.10 - Atherosclerotic heart disease of [place] coronary artery without angina pectoris Status: Acute Plan: Status post NSTEMI. Cath shows significant RCA, prox LAD, and left main disease with EF ~50%. Await CT surgery consultation. Continue beta clarissa, TRAVIS-I. (2) Hypertension Code(s): I10 - Essential (primary) hypertension Status: Chronic Plan: Stable. Mostly normotensive. - Plan Code Status: full Discussed Condition With: patient (1) Coronary artery disease Qualifiers: Coronary Disease-Associated Artery/Lesion type: [place] artery [place] vs. transplanted heart: [place] heart Associated angina: with unstable angina Qualified Code(s): I25.110 - Atherosclerotic heart disease of [place] coronary artery with unstable angina pectoris (2) Hypertension Qualifiers: Hypertension type: essential hypertension Qualified Code(s): I10 - Essential (primary) hypertension
[2018-04-08] MEDS: Vancomycin Inj 1,500 MG in Sodium Chlor 0.9% Inj 500 ML IV.SIG SCH (10:43)
--- NOTE | 2018-04-08 11:19 | P.PN ---
Subjective Interval history: no complains afebrile seen with at bedside known diabetic- poor control - per last A1C was around 9- about 2 months ago stes leg erythema- improved a lot- days before - extensive- including the back of the leg was red no trauma Physical Exam Vital signs: Vital Signs 04/07/18 12:00 04/07/18 13:00 04/07/18 14:00 Temperature 97.7 F Pulse Rate 86 80 88 Respiratory Rate 18 Blood Pressure 113/70 Pulse Oximetry 97 04/07/18 15:00 04/07/18 15:39 04/07/18 18:00 Temperature 97.9 F Pulse Rate 88 82 88 Respiratory Rate 16 Blood Pressure 126/78 Pulse Oximetry 97 04/07/18 19:00 04/07/18 20:00 04/07/18 21:00 Temperature 98.5 F Pulse Rate 98 H 94 H 94 H Respiratory Rate 18 Blood Pressure 105/46 L Pulse Oximetry 95 04/07/18 22:00 04/07/18 23:00 04/07/18 23:31 Temperature 98.9 F Pulse Rate 92 H 90 93 H Respiratory Rate 18 Blood Pressure 106/55 L Pulse Oximetry 96 04/08/18 00:00 04/08/18 01:00 04/08/18 02:00 Temperature Pulse Rate 88 88 70 Respiratory Rate Blood Pressure Pulse Oximetry 04/08/18 03:00 04/08/18 03:39 04/08/18 04:00 Temperature 97.8 F Pulse Rate 88 82 85 Respiratory Rate 18 Blood Pressure 127/75 Pulse Oximetry 96 04/08/18 05:00 04/08/18 06:00 04/08/18 08:00 Temperature 97.9 F Pulse Rate 82 80 90 Respiratory Rate 16 Blood Pressure 122/65 Pulse Oximetry 97 Intake & Output 04/07/18 04/08/18 04/08/18 18:59 06:59 18:59 Intake Total 1780 / 1780 1855 / 1855 50 / 50 Output Total 1400 / 1400 1250 / 1250 Balance 380 / 380 605 / 605 50 / 50 Weight 127.6 kg Intake: IV 1100 / 1100 1615 / 1615 50 / 50 NS Inj 1,000 ML @ 100 mls/hr IV 1000 / 1000 1000 / 1000 .CONT .Q10H [facility] Rx#:[id number] Zosyn 3.375 GM Premix 50 ML @ 100 / 100 100 / 100 50 / 50 100 mls/hr IV.SIG Q6H [facility] Rx#: [id number] Vancomycin Inj 1,500 MG In NS 515 / 515 Inj 500 ML @ 257.5 mls/hr IV. SIG Q18H [facility] Rx#:[id number] Oral 480 / 480 240 / 240 Anesthesia Amount 200 / 200 Output: Urine 1400 / 1400 1250 / 1250 Other: Date of Last Bowel Movement 04/06/18 04/06/18 # Bowel Movements 1,250 Narrative: GENERAL: NAD SKIN: Erythematous of the right LE- - demarcating - per improved HEAD: Normocephalic. EYES anciteric NECK: Supple, trachea midline. No JVD or lymphadenopathy. CARDIOVASCULAR: Regular rate and rhythm RESPIRATORY: Breath sounds equal bilaterally. No accessory muscle use. GASTROINTESTINAL: Abdomen soft, non-tender, nondistended. MUSCULOSKELETAL: No cyanosis, or edema. right wrist- cath site- splint in place left foot- big toe- posterior aspect- superficial dry ulcer, no erythema BACK: Nontender without obvious deformity. No CVA tenderness. Results - Labs CBC & Chem 7: 04/09/18 05:49 04/09/18 05:49 Laboratory Results - last 24 hr 04/07/18 04/07/18 04/07/18 11:41 17:44 18:05 WBC RBC Hgb Hct MCV MCH MCHC RDW Plt Count MPV Prelim Diff (Auto) Neut % (Auto) Lymph % (Auto) [place] % (Auto) Eos % (Auto) Baso % (Auto) Neut # (Auto) Lymph # (Auto) [place] # (Auto) Eos # (Auto) Baso # (Auto) WBC Differential Seg Neuts % (Manual) Band Neuts % (Manual) Lymphocytes % (Manual) Monocytes % (Manual) Eosinophils % (Manual) Basophils % (Manual) Myelocytes % (Man) Abs Neuts (Manual) Differential Comment Platelet Estimate Platelet Morphology Ovalocytes APTT 111.3 H* D Sodium Potassium Chloride Carbon Dioxide Anion Gap BUN Creatinine Estimated GFR POC Glucose 135 H 114 H Random Glucose Calcium Total Bilirubin AST ALT Alkaline Phosphatase Total Protein Albumin 04/07/18 04/08/18 04/08/18 20:22 02:55 06:45 WBC RBC Hgb Hct MCV MCH MCHC RDW Plt Count MPV Prelim Diff (Auto) Neut % (Auto) Lymph % (Auto) [place] % (Auto) Eos % (Auto) Baso % (Auto) Neut # (Auto) Lymph # (Auto) [place] # (Auto) Eos # (Auto) Baso # (Auto) WBC Differential Seg Neuts % (Manual) Band Neuts % (Manual) Lymphocytes % (Manual) Monocytes % (Manual) Eosinophils % (Manual) Basophils % (Manual) Myelocytes % (Man) Abs Neuts (Manual) Differential Comment Platelet Estimate Platelet Morphology Ovalocytes APTT Sodium 139 Potassium 3.8 Chloride 107 Carbon Dioxide 25.1 Anion Gap 7 BUN 13 Creatinine 0.98 Estimated GFR 77 L POC Glucose 164 H 145 H Random Glucose 138 H Calcium 8.5 Total Bilirubin 0.7 AST 16 ALT 25 Alkaline Phosphatase 63 Total Protein 6.8 Albumin 2.6 L 04/08/18 04/08/18 04/08/18 06:45 06:45 07:50 WBC 8.9 RBC 3.91 L Hgb 12.3 L Hct 34.2 L MCV 87.3 MCH 31.5 MCHC 36.0 RDW 13.4 Plt Count 221 MPV 8.3 Prelim Diff (Auto) Slide review pending Neut % (Auto) 69.3 Lymph % (Auto) 18.9 [place] % (Auto) 8.4 H Eos % (Auto) 2.8 Baso % (Auto) 0.6 Neut # (Auto) 6.1 Lymph # (Auto) 1.7 [place] # (Auto) 0.7 Eos # (Auto) 0.2 Baso # (Auto) 0.1 WBC Differential Manual diff final Seg Neuts % (Manual) 68 Band Neuts % (Manual) 5 Lymphocytes % (Manual) 17 Monocytes % (Manual) 7 Eosinophils % (Manual) 1 Basophils % (Manual) 1 Myelocytes % (Man) 1 H Abs Neuts (Manual) 6.6 Differential Comment . Platelet Estimate Normal Platelet Morphology Normal Ovalocytes 1+ H APTT 32.8 H D Sodium Potassium Chloride Carbon Dioxide Anion Gap BUN Creatinine Estimated GFR POC Glucose 145 H Random Glucose Calcium Total Bilirubin AST ALT Alkaline Phosphatase Total Protein Albumin Microbiology 04/06/18 18:40 Blood - Peripheral Aerobic Blood Culture - Preliminary No growth in 2 days 04/06/18 18:40 Blood - Peripheral Anaerobic Blood Culture - Preliminary No growth in 2 days 04/06/18 18:45 Blood - Peripheral Aerobic Blood Culture - Preliminary No growth in 2 days 04/06/18 18:45 Blood - Peripheral Anaerobic Blood Culture - Preliminary No growth in 2 days - Procedures 04/07- cardiac cath 1. Nvozvnit-rz-melmcm disease of the proximal LAD and of the right coronary. 2. 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 2. Good left to right collaterals. 3. Low normal left ventricular systolic function with ejection fraction estimated at 50%. Assessment and Plan - Plan 67-year-old man with CAD- NSTEMI S/P cath with 2VD Heparin drip, beta-clarissa, aspirin, nitroglycerin paste, statins Cardiology ff Dr. Bruno consulted Right lower extremity cellulitis - oer opatient and improve- demarcating Blood cultures negative so far Continue with vancomycin/Zosyn Left big toe- superficial dry ulcer- no singns of infection - advise OP ff up with a Podiatry for routine podiatry care Diabetes mellitus, type 2 - per last A1C- around 9 - here with our diet- good readings - continue Sliding scale insulin. - All hyperglycemic agents on hold- as OP was on Metformin, glipizide and Januvia - Monitor blood glucose - d/w them goals Hypertension- improved - on coreg, Prinivil 20 mg daily - Continue home medications AK I- resolved Creatinine 1.44, baseline 0.9 Renal indices improving IV fluid hydration Monitor renal DVT prophylaxis: Heparin
--- NOTE | 2018-04-08 15:32 | US ---
EXAM DATE: 04/08/2018 3:29 PM EST AGE/SEX: 67 years / Male INDICATIONS: Pre-op CABG. CLINICAL DATA: This is the patient's initial encounter. Patient reports that signs and symptoms have been present for 1 day and indicates a pain score of 0/10. MEDICAL/SURGICAL HISTORY: Diabetes. Hypercholesterolemia. Hypertension. CAD. Coronary arter y stent. COMPARISON: [facility], US VENOUS DOPPLER LEG RIGHT, 04/06/2018. . TECHNIQUE: Venous ultrasound of both lower extremities was performed from the inguinal ligament to t he proximal calf. Real-time, color Doppler and spectral tracing, compression and augmentation techni ques were used. FINDINGS: Right Leg: Normal compression of the deep venous system from the inguinal region to the proximal idalmis f. No echogenic clot is seen. Normal response of the venous system to augmentation and respiration. Left Leg: Normal compression of the deep venous system from the inguinal region to the proximal calf . No echogenic clot is seen. Normal response of the venous system to augmentation and respiration. Other: None. CONCLUSION: The study is negative for bilateral lower extremity deep venous thrombosis. Electronically signed by: Nile Jacobo MD 04/08/2018 3:31 PM EST
--- NOTE | 2018-04-08 15:39 | US ---
EXAM DATE: 04/08/2018 3:34 PM EST AGE/SEX: 67 years / Male INDICATIONS: Pre-op CABG. CLINICAL DATA: This is the patient's initial encounter. Patient reports that signs and symptoms have been present for 1 day and indicates a pain score of 0/10. MEDICAL/SURGICAL HISTORY: Diabetes. Hypercholesterolemia. Hypertension. Coronary artery stent . COMPARISON: [facility] [place] VENOUS DOPPLER LEG BI, 04/08/2018. . MEASUREMENTS: RIGHT THIGH: Proximal:__5 mm Mid:__ 4 mm Distal:__3 mm LEFT THIGH: Proximal:__4 mm Mid:__3 mm Distal:__3 mm RIGHT CALF: Proximal:__3 mm Mid:__3 mm Distal:__2 mm LEFT CALF: Proximal:__2 mm Mid:__2 mm Distal:__1 mm FINDINGS: The venous system of the lower extremities are patent by color Doppler imaging. Measurements of the leg veins (in mm) are listed above. CONCLUSION: 1. Vein mapping as above. Electronically signed by: Cam Meng MD 04/08/2018 3:37 PM EST
--- NOTE | 2018-04-08 15:41 | US ---
EXAM DATE: 04/08/2018 3:38 PM EST AGE/SEX: 67 years / Male INDICATIONS: Pre-op CABG. CLINICAL DATA: This is the patient's initial encounter. Patient reports that signs and symptoms have been present for 1 day and indicates a pain score of 0/10. MEDICAL/SURGICAL HISTORY: Diabetes. Hypercholesterolemia. Hypertension. CAD. Coronary arter y stent. COMPARISON: No prior exams available for comparison. VELOCITY PARAMETERS: ICA/CCA Ratio: Right 1.12 , Left 1.76 ICA: Right 99 cm/sec, Left 126 cm/sec CCA: Right 88 cm/sec, Left 71 cm/sec ECA: Right 122 cm/sec, Left 93 cm/sec Vertebral: Right Not visualized. cm/sec antegrade, Left 58 cm/sec antegrade FINDINGS: Right Carotid: Mild arteriosclerotic plaque is visualized.The waveforms are within normal limits. Left Carotid: Mild arteriosclerotic plaque is visualized. The waveforms are within normal limits. Other: None. CONCLUSION: 1. Right Internal Carotid Artery: Minimal atherosclerotic plaquing. No hemodynamically significant s tenosis identified. 2. Left Internal Carotid Artery: Minimal atherosclerotic plaquing. No hemodynamically significant st enosis identified. Electronically signed by: Cam Meng MD 04/08/2018 3:39 PM EST
--- NOTE | 2018-04-08 16:09 | P.PNCV ---
- Note Subjective/Hospital Course: pt seen and evaluated, full consult to follow sts data discussed with pt [facility] Procedure: Isolated CAB CALCULATE Risk of Mortality: 1.484% Renal Failure: 1.920% Permanent Stroke: 1.283% Prolonged Ventilation: 6.601% DSW Infection: 0.293% Reoperation: 1.186% Morbidity or Mortality: 10.354% Short Length of Stay: 43.069% Long Length of Stay: 4.151% Objective: Vital Signs - 24 hr 04/07/18 18:00 04/07/18 19:00 04/07/18 20:00 Temperature 98.5 F Pulse Rate 88 98 H 94 H Respiratory Rate 18 Blood Pressure 105/46 L Pulse Oximetry 95 04/07/18 21:00 04/07/18 22:00 04/07/18 23:00 Temperature Pulse Rate 94 H 92 H 90 Respiratory Rate Blood Pressure Pulse Oximetry 04/07/18 23:31 04/08/18 00:00 04/08/18 01:00 Temperature 98.9 F Pulse Rate 93 H 88 88 Respiratory Rate 18 Blood Pressure 106/55 L Pulse Oximetry 96 04/08/18 02:00 04/08/18 03:00 04/08/18 03:39 Temperature 97.8 F Pulse Rate 70 88 82 Respiratory Rate 18 Blood Pressure 127/75 Pulse Oximetry 96 04/08/18 04:00 04/08/18 05:00 04/08/18 06:00 Temperature Pulse Rate 85 82 80 Respiratory Rate Blood Pressure Pulse Oximetry 04/08/18 07:00 04/08/18 08:00 04/08/18 09:00 Temperature 97.9 F Pulse Rate 82 102 H 92 H Respiratory Rate 16 Blood Pressure 122/65 Pulse Oximetry 97 04/08/18 10:00 04/08/18 11:00 04/08/18 12:00 Temperature 98.7 F Pulse Rate 94 H 90 91 H Respiratory Rate 16 Blood Pressure 121/64 Pulse Oximetry 96 Labs: Laboratory Results - last 12 hr 04/08/18 04/08/18 04/08/18 06:45 06:45 06:45 WBC 8.9 RBC 3.91 L Hgb 12.3 L Hct 34.2 L MCV 87.3 MCH 31.5 MCHC 36.0 RDW 13.4 Plt Count 221 MPV 8.3 Prelim Diff (Auto) Slide review pending Neut % (Auto) 69.3 Lymph % (Auto) 18.9 [place] % (Auto) 8.4 H Eos % (Auto) 2.8 Baso % (Auto) 0.6 Neut # (Auto) 6.1 Lymph # (Auto) 1.7 [place] # (Auto) 0.7 Eos # (Auto) 0.2 Baso # (Auto) 0.1 WBC Differential Manual diff final Seg Neuts % (Manual) 68 Band Neuts % (Manual) 5 Lymphocytes % (Manual) 17 Monocytes % (Manual) 7 Eosinophils % (Manual) 1 Basophils % (Manual) 1 Myelocytes % (Man) 1 H Abs Neuts (Manual) 6.6 Differential Comment . Platelet Estimate Normal Platelet Morphology Normal Ovalocytes 1+ H APTT 32.8 H D Sodium 139 Potassium 3.8 Chloride 107 Carbon Dioxide 25.1 Anion Gap 7 BUN 13 Creatinine 0.98 Estimated GFR 77 L POC Glucose Random Glucose 138 H Calcium 8.5 Total Bilirubin 0.7 AST 16 ALT 25 Alkaline Phosphatase 63 Total Protein 6.8 Albumin 2.6 L 04/08/18 04/08/18 07:50 11:56 WBC RBC Hgb Hct MCV MCH MCHC RDW Plt Count MPV Prelim Diff (Auto) Neut % (Auto) Lymph % (Auto) [place] % (Auto) Eos % (Auto) Baso % (Auto) Neut # (Auto) Lymph # (Auto) [place] # (Auto) Eos # (Auto) Baso # (Auto) WBC Differential Seg Neuts % (Manual) Band Neuts % (Manual) Lymphocytes % (Manual) Monocytes % (Manual) Eosinophils % (Manual) Basophils % (Manual) Myelocytes % (Man) Abs Neuts (Manual) Differential Comment Platelet Estimate Platelet Morphology Ovalocytes APTT Sodium Potassium Chloride Carbon Dioxide Anion Gap BUN Creatinine Estimated GFR POC Glucose 145 H 233 H Random Glucose Calcium Total Bilirubin AST ALT Alkaline Phosphatase Total Protein Albumin Result Diagrams: 04/08/18 06:45 04/08/18 06:45
[2018-04-08 16:27] LABS: Hemoglobin A1c 7.2 % (4.3-6.0)
--- NOTE | 2018-04-08 17:02 | MB ---
cc: Amrita Vazquez APRN DATE: 04/08/2018 HISTORY OF PRESENT ILLNESS: A 67-year-old male with history of coronary artery disease, presented to the emergency room with chest pain, dyspnea with minimal to mild exertion. He had a near syncopal episode at home when he was trying to get up to the bathroom. He also has been complaining of some swelling and erythema and pain to his right lower extremity. Denied having any injury or any kind of insect bites. His troponins were elevated. He underwent cardiac catheterization, which showed ejection fraction of 50%, mild to moderate disease of the proximal LAD and the right coronary artery. The right coronary artery was diffusely diseased, basically totally occluded at the ostium. There were left to right collaterals. Left main disease of 50%, IVUS was completed for the left main, which showed 60%. We were consulted to evaluate for coronary artery bypass grafting. PAST MEDICAL HISTORY: Includes coronary artery disease, prior stenting 2005 and then also another cardiac catheterization in 2008 where he underwent 2 stents to the proximal and mid RCA, diabetes mellitus, hypertension, sleep apnea. He had a TIA in 2005, hyperlipidemia. No other surgeries. ALLERGIES: NO KNOWN ALLERGIES. HOME MEDICATIONS: 1. Potassium. 2. Lisinopril. 3. Hydrochlorothiazide. 4. Atorvastatin. 5. Amlodipine. 6. Aspirin. FAMILY HISTORY: Noncontributory, no early coronary disease. SOCIAL HISTORY: The patient is . Prior tobacco. He smoked for about 12 years, quit 20 years ago, a pack per day, has no children, has a significant other. Drinks daily, 1 alcoholic drink per day. No illicit drugs. REVIEW OF SYSTEMS: GENERAL: No night sweats, fever, heat and cold intolerance. SKIN: No psoriasis, itching or hives. HEENT: No blurred vision, hearing loss. RESPIRATORY: Positive for recent shortness of breath. CARDIOVASCULAR: As above in the HPI. GASTROINTESTINAL: No diarrhea or vomiting. GENITOURINARY: No burning, frequency, urgency. CENTRAL NERVOUS SYSTEM: Positive for TIA, no CVA. ENDOCRINOLOGY: Positive for diabetes. PHYSICAL EXAMINATION: VITAL SIGNS: Blood pressure 120/60, heart rate of 90, afebrile. GENERAL: The patient is awake, alert, in no acute distress. HEENT: Head is normocephalic, atraumatic. Pupils equal and reactive. Oral mucosa pink, moist. He does have partial dentures. NECK: Supple. No JVD. HEART: Sounds S1, S2. Regular rate and rhythm. No audible rubs, murmurs, or gallops. LUNGS: Clear to auscultation. No wheezes, rales or rhonchi. ABDOMEN: Soft, nontender. No masses or organomegaly. EXTREMITIES: Reveal significant diffuse swelling with irregular erythematous macular dermatology eruption of his right lower extremity, really below the knee. He had good distal pulses. He also has a dry superficial ulcer to his right great toe. LABORATORY DATA: Shows hemoglobin of 12, hematocrit of 34. White cell count 8.9, platelet count of 221. Sodium 139, potassium 3.8, BUN of 13, creatinine 0.98. Hemoglobin A1c pending. AST 16, ALT 25, INR 1.1. Blood cultures: No growth in 2 days. FURTHER RADIOLOGICAL EXAMS: Venous Doppler study negative for bilateral DVTs. Carotid ultrasound with nonspecific disease. IMPRESSION: A 67-year-old male with history of coronary artery disease, prior stenting, presented with a non-ST elevation myocardial infarction. Also, history of TIA, sleep apnea and also right lower legs cellulitis, diabetes mellitus with a recent hemoglobin A1c of 9 and also acute kidney injury with creatinine of 1.44, baseline of 0.9. PLAN: At this time, the patient will need an infectious disease consult to clear for surgery regarding the right lower leg cellulitis and further evaluation. In the meantime, he will need to have this cellulitis cleared up prior to surgery, so there is a possibility to be evaluated early next week for surgery. The patient is agreeable to proceed. At this time we will await the clearance from infectious disease. KATHIA Staley MD JRT/ct , 04:16 PM , 04:26 PM
--- NOTE | 2018-04-08 19:48 | P.CONID ---
History of Present Illness Service: ID Consult date: 04/08/18 Requesting Physician: Amrita Vazquez Reason for Consult: preop clearance for CABG/ right lower leg cellulitis Primary Care Provider: PROVIDER NON STAFF History of Present Illness: 56 yo diabetic male admitted for NSTEMI, multi vessel CABG planned presented with swollen red and tender RLE On presentation no fever, no leukocytosis started on zosyn , vancomycin RLE swelling and redness are improving Review of Systems All other systems reviewed negative except as stated in HPI PMFSH - History History Provided By: Patient - Medical History Medical History: Medical History (Last Reviewed 04/09/18 @ 02:00 by Catherine Hedrick MD) Coronary artery disease Diabetes mellitus History of CVA (cerebrovascular accident) Hyperlipidemia Hypertension - Surgical History Surgical History: Surgical History (Last Reviewed 04/09/18 @ 02:00 by Catherine Hedrick MD) History of coronary artery stent placement - Family History Family History: Family History (Last Reviewed 04/09/18 @ 02:00 by Catherine Hedrick MD) Other Lung cancer - Social History I have reviewed the patient's Social History: Yes - Tobacco History Second Hand Smoke Exposure: No Tobacco Use In Past 30 Days: No Smoking Status: Former smoker - Alcohol History How Often Do You Have a Drink Containing Alcohol: 4 or more times a week - Substance Use History Substance History: No History of Abuse - Travel History Recent Travel in the [place] Within the Last 8 Weeks: No Recent Travel Out of the Country Within the Last 8 Weeks: No - Immunization History Tetanus Immunization: >5 Years Medications and Allergies Active Medications: Active Medications Acetaminophen (Tylenol) 650 mg PO Q4H PRN PRN Reason: Temp > 100.4 Atorvastatin Calcium (Lipitor) 40 mg PO DAILY [facility] Last Admin: 04/08/18 09:18 Dose: 40 mg Bisacodyl (Dulcolax Supp) 10 mg RECTAL DAILY PRN PRN Reason: SEVERE CONSITIPATION Carvedilol (Coreg) 3.125 mg PO BID [facility] Last Admin: 04/08/18 09:18 Dose: 3.125 mg Dextrose (D50w Vial) 50 ml IV.PUSH UNSCH PRN PRN Reason: PER HYPOGLYCEMIA PROTOCOL Diphenhydramine HCl (Benadryl) 50 mg PO ACO COORDINATOR [facility] Stop: 04/11/18 08:44 Last Admin: 04/07/18 15:03 Dose: 50 mg Fentanyl Citrate (Fentanyl Inj) 50 mcg IV.PUSH ACO COORDINATOR [facility] Stop: 04/11/18 08:44 Last Admin: 04/07/18 16:09 Dose: 50 mcg Glucagon (Glucagon Inj) 1 mg OTHER UNSCH PRN PRN Reason: for Hypoglycemia Protocol Piperacillin/Tazobactam/Dextrose (Zosyn 3.375 Gm Premix) 50 mls @ 100 mls/hr IV.SIG Q6H [facility] Last Infusion: 04/08/18 18:22 Dose: Infused Vancomycin HCl 1,500 mg/ (Sodium Chloride) 515 mls @ 257.5 mls/hr IV.SIG Q18H [facility] Last Infusion: 04/08/18 14:00 Dose: Infused Sodium Chloride (Ns Inj) 1,000 mls @ 100 mls/hr IV.CONT .Q10H [facility] Last Admin: 04/08/18 13:31 Dose: 100 mls/hr Heparin Sodium/Dextrose (Heparin/D5w 25,000 U/250 Ml) 25,000 unit in 250 mls @ 0 mls/hr IV.CONT TITRATE PRN; Protocol PRN Reason: Per Protocol Last Titration: 04/08/18 17:16 Dose: 1,400 units/hr, 14 mls/hr Insulin Aspart (Novolog Insulin Correctional Sugar Inj) 0 unit SQ ACHS AND 3AM ANGIE; Protocol Last Admin: 04/08/18 12:36 Dose: 3 unit Lisinopril (Prinivil) 20 mg PO DAILY [facility] Last Admin: 04/08/18 09:18 Dose: 20 mg Midazolam HCl (Versed Inj) 1 mg IV.PUSH ACO COORDINATOR [facility] Stop: 04/11/18 08:44 Last Admin: 04/07/18 16:08 Dose: 1 mg Miscellaneous Information [place] [place] Info) 0 each OTHER ONCE ONE Stop: 04/09/18 03:46 Pharmacy Profile Note (Vancomycin Consult Pharmacy) 1 each OTHER UNSCH PRN PRN Reason: Pharmacy to dose Prochlorperazine (Compazine Supp) 25 mg RECTAL Q12H PRN PRN Reason: NAUSEA OR VOMITING Sennosides (Senokot) 17.2 mg PO Q12H PRN PRN Reason: Moderate Constipation Sodium Chloride (Ns Flush) 2 ml IV.FLUSH BID ANGIE Sodium Chloride (Ns Flush) 2 ml IV.FLUSH PRN PRN PRN Reason: FLUSH AFTER USING IV ACCESS Allergies Allergy/AdvReac Type Severity Reaction Status Date / Time No Known Allergies Allergy Verified 04/07/18 14:41 Home Medications Medication Instructions Recorded Confirmed Type amlodipine 2.5 mg PO DAILY 04/06/18 04/06/18 History ascorbic acid (vitamin C) [Vitamin 500 mg PO DAILY 04/06/18 04/06/18 History C] aspirin 325 mg PO DAILY 04/06/18 04/06/18 History atorvastatin 40 mg PO DAILY 04/06/18 04/06/18 History cholecalciferol (vitamin D3) 2,000 unit PO DAILY 04/06/18 04/06/18 History [Vitamin D3] cyanocobalamin (vitamin B-12) 2,500 mcg SUBLINGUAL DAILY 04/06/18 04/06/18 History [Vitamin B-12] glipizide 10 mg PO DAILY 04/06/18 04/06/18 History hydrochlorothiazide 25 mg PO DAILY 04/06/18 04/06/18 History lisinopril 20 mg PO DAILY 04/06/18 04/06/18 History metformin 1,500 mg PO QPM 04/06/18 04/06/18 History potassium chloride 20 meq PO DAILY 04/06/18 04/06/18 History sitagliptin [Januvia] 100 mg PO DAILY 04/06/18 04/06/18 History zinc 50 mg PO DAILY 04/06/18 04/06/18 History Exam Vital signs: Vital Signs 04/07/18 20:00 04/07/18 21:00 04/07/18 22:00 Temperature 98.5 F Pulse Rate 94 H 94 H 92 H Respiratory Rate 18 Blood Pressure 105/46 L Pulse Oximetry 95 04/07/18 23:00 04/07/18 23:31 04/08/18 00:00 Temperature 98.9 F Pulse Rate 90 93 H 88 Respiratory Rate 18 Blood Pressure 106/55 L Pulse Oximetry 96 04/08/18 01:00 04/08/18 02:00 04/08/18 03:00 Temperature Pulse Rate 88 70 88 Respiratory Rate Blood Pressure Pulse Oximetry 04/08/18 03:39 04/08/18 04:00 04/08/18 05:00 Temperature 97.8 F Pulse Rate 82 85 82 Respiratory Rate 18 Blood Pressure 127/75 Pulse Oximetry 96 04/08/18 06:00 04/08/18 07:00 04/08/18 08:00 Temperature 97.9 F Pulse Rate 80 82 102 H Respiratory Rate 16 Blood Pressure 122/65 Pulse Oximetry 97 04/08/18 09:00 04/08/18 10:00 04/08/18 11:00 Temperature Pulse Rate 92 H 94 H 90 Respiratory Rate Blood Pressure Pulse Oximetry 04/08/18 12:00 Temperature 98.7 F Pulse Rate 91 H Respiratory Rate 16 Blood Pressure 121/64 Pulse Oximetry 96 Intake & Output 04/08/18 04/08/18 04/09/18 06:59 18:59 06:59 Intake Total 1855 / 1855 2590 / 2590 Output Total 1250 / 1250 Balance 605 / 605 2590 / 2590 Weight 127.6 kg Intake: IV 1615 / 1615 2590 / 2590 NS Inj 1,000 ML @ 100 mls/hr IV 1000 / 1000 1000 / 1000 .CONT .Q10H ANGIE Rx#:[id number] Zosyn 3.375 GM Premix 50 ML @ 100 / 100 75 / 75 100 mls/hr IV.SIG Q6H ANGIE Rx#: [id number] Vancomycin Inj 1,500 MG In NS 515 / 515 515 / 515 Inj 500 ML @ 257.5 mls/hr IV. SIG Q18H ANGIE Rx#:[id number] Oral 240 / 240 Output: Urine 1250 / 1250 Other: Date of Last Bowel Movement 04/08/18 # Bowel Movements 1,250 - Constitutional no acute distress, obese - Routine HEENT Exam Head: Present: normocephalic, atraumatic Eye: Present: EOMI, PERRL ENT: Present: mucous membranes moist, oropharynx clear - Routine Neck Exam Present: supple. Absent: JVD - Routine Respiratory Exam Present: decreased breath sounds, CTA bilaterally. Absent: respiratory distress - Routine Cardiovascular Exam Present: RRR, S1, S2. Absent: murmur, gallop, rubs - Routine Abdominal Exam Present: soft, normoactive bowel sounds. Absent: tenderness, distended, organomegaly, mass - Routine Extremities Exam Present: edema (RLE) Comments: RLE with erythem, edema extending to the knee no open sores no crepitus - Routine Skin Exam Present: erythema (rle), warm (RLE). Absent: rash - Routine Neurological Exam Present: alert, oriented X3, CN II-XII intact. Absent: sensory deficit, motor deficit - Routine Psychiatric Exam Present: normal affect, cooperative Results - Labs CBC & Chem 7: 04/08/18 06:45 04/08/18 06:45 Labs: Laboratory Results - last 24 hr 04/07/18 04/08/18 04/08/18 20:22 02:55 06:45 WBC RBC Hgb Hct MCV MCH MCHC RDW Plt Count MPV Prelim Diff (Auto) Neut % (Auto) Lymph % (Auto) [place] % (Auto) Eos % (Auto) Baso % (Auto) Neut # (Auto) Lymph # (Auto) [place] # (Auto) Eos # (Auto) Baso # (Auto) WBC Differential Seg Neuts % (Manual) Band Neuts % (Manual) Lymphocytes % (Manual) Monocytes % (Manual) Eosinophils % (Manual) Basophils % (Manual) Myelocytes % (Man) Abs Neuts (Manual) Differential Comment Platelet Estimate Platelet Morphology Ovalocytes APTT Sodium 139 Potassium 3.8 Chloride 107 Carbon Dioxide 25.1 Anion Gap 7 BUN 13 Creatinine 0.98 Estimated GFR 77 L POC Glucose 164 H 145 H Random Glucose 138 H Hemoglobin A1c Calcium 8.5 Total Bilirubin 0.7 AST 16 ALT 25 Alkaline Phosphatase 63 Total Protein 6.8 Albumin 2.6 L Blood Type Blood Type Recheck Antibody Screen 04/08/18 04/08/18 04/08/18 06:45 06:45 06:45 WBC 8.9 RBC 3.91 L Hgb 12.3 L Hct 34.2 L MCV 87.3 MCH 31.5 MCHC 36.0 RDW 13.4 Plt Count 221 MPV 8.3 Prelim Diff (Auto) Slide review pending Neut % (Auto) 69.3 Lymph % (Auto) 18.9 [place] % (Auto) 8.4 H Eos % (Auto) 2.8 Baso % (Auto) 0.6 Neut # (Auto) 6.1 Lymph # (Auto) 1.7 [place] # (Auto) 0.7 Eos # (Auto) 0.2 Baso # (Auto) 0.1 WBC Differential Manual diff final Seg Neuts % (Manual) 68 Band Neuts % (Manual) 5 Lymphocytes % (Manual) 17 Monocytes % (Manual) 7 Eosinophils % (Manual) 1 Basophils % (Manual) 1 Myelocytes % (Man) 1 H Abs Neuts (Manual) 6.6 Differential Comment . Platelet Estimate Normal Platelet Morphology Normal Ovalocytes 1+ H APTT 32.8 H D Sodium Potassium Chloride Carbon Dioxide Anion Gap BUN Creatinine Estimated GFR POC Glucose Random Glucose Hemoglobin A1c 7.2 H Calcium Total Bilirubin AST ALT Alkaline Phosphatase Total Protein Albumin Blood Type Blood Type Recheck Antibody Screen 04/08/18 04/08/18 04/08/18 07:50 11:56 15:41 WBC RBC Hgb Hct MCV MCH MCHC RDW Plt Count MPV Prelim Diff (Auto) Neut % (Auto) Lymph % (Auto) [place] % (Auto) Eos % (Auto) Baso % (Auto) Neut # (Auto) Lymph # (Auto) [place] # (Auto) Eos # (Auto) Baso # (Auto) WBC Differential Seg Neuts % (Manual) Band Neuts % (Manual) Lymphocytes % (Manual) Monocytes % (Manual) Eosinophils % (Manual) Basophils % (Manual) Myelocytes % (Man) Abs Neuts (Manual) Differential Comment Platelet Estimate Platelet Morphology Ovalocytes APTT 30.3 Sodium Potassium Chloride Carbon Dioxide Anion Gap BUN Creatinine Estimated GFR POC Glucose 145 H 233 H Random Glucose Hemoglobin A1c Calcium Total Bilirubin AST ALT Alkaline Phosphatase Total Protein Albumin Blood Type Blood Type Recheck Antibody Screen 04/08/18 04/08/18 15:41 17:46 WBC RBC Hgb Hct MCV MCH MCHC RDW Plt Count MPV Prelim Diff (Auto) Neut % (Auto) Lymph % (Auto) [place] % (Auto) Eos % (Auto) Baso % (Auto) Neut # (Auto) Lymph # (Auto) [place] # (Auto) Eos # (Auto) Baso # (Auto) WBC Differential Seg Neuts % (Manual) Band Neuts % (Manual) Lymphocytes % (Manual) Monocytes % (Manual) Eosinophils % (Manual) Basophils % (Manual) Myelocytes % (Man) Abs Neuts (Manual) Differential Comment Platelet Estimate Platelet Morphology Ovalocytes APTT Sodium Potassium Chloride Carbon Dioxide Anion Gap BUN Creatinine Estimated GFR POC Glucose 174 H Random Glucose Hemoglobin A1c Calcium Total Bilirubin AST ALT Alkaline Phosphatase Total Protein Albumin Blood Type O Positive Blood Type Recheck Required Antibody Screen Negative - Imaging Impressions Carotid Doppler Study 04/08/18 13:14 CONCLUSION: 1. Right Internal Carotid Artery: Minimal atherosclerotic plaquing. No hemodynamically significant stenosis identified. 2. Left Internal Carotid Artery: Minimal atherosclerotic plaquing. No hemodynamically significant stenosis identified. Lower Extremity Ultrasound 04/08/18 13:14 CONCLUSION: 1. Vein mapping as above. Venous Doppler Study 04/08/18 13:14 CONCLUSION: The study is negative for bilateral lower extremity deep venous thrombosis. Assessment and Plan - Plan RLE cellulitis, active infection CAD, needs CABG cont vancomycin dc zosyn can add ancef keep RLE up recommend no vein harvesting from RLE untill active infection resolves
[2018-04-09] MEDS: Sod Chloride 0.9% Inj 1,000 ML IV.CONT SCH ×2 (00:54→10:13)
[2018-04-09] MEDS ORDERED: Pharmacy Ordered Lab Info OTHER ONE (03:45)
[2018-04-09] MEDS: Insulin NovoLOG Aspart Correctional Sugar Inj SQ SCH ×5 (04:09→22:16)
[2018-04-09] MEDS: Piperacil/Tazo 3.375 GM Premix 50 ML IV.SIG SCH ×2 (04:10→08:54)
[2018-04-09] MEDS: Vancomycin Inj 1,500 MG in Sodium Chlor 0.9% Inj 500 ML IV.SIG SCH ×2 (04:11→16:00)
[2018-04-09 06:14] LABS: Hematocrit 34.2 % (39.0-51.0); Mean Corpuscular HGB Conc 35.2 % (32.0-36.0); Mean Corpuscular Hemoglobin 31.1 pg (27.0-34.0); Mean Corpuscular Volume 88.2 fL (80.0-100.0); Mean Platelet Volume 8.4 fL (7.0-11.0); Platelet Count 221 th/mm3 (150-450); Red Blood Count 3.87 mil/mm3 (4.50-5.90); Red Cell Distribution Width 13.4 % (11.6-17.2); White Blood Count 11.1 th/mm3 (4.0-11.0)
[2018-04-09 06:50] LABS: Chol/HDL Ratio 3.15 Ratio; HDL Cholesterol 33.3 mg/dL (40.0-60.0)
--- NOTE | 2018-04-09 08:15 | P.PNCA ---
Subjective Interval history: Denies CP, dizziness, palpitations. Continued dyspnea with minimal exertion. No PND. Medications and Allergies Active Medications: Active Medications Acetaminophen (Tylenol) 650 mg PO Q4H PRN PRN Reason: Temp > 100.4 Atorvastatin Calcium (Lipitor) 40 mg PO DAILY [facility] Last Admin: 04/08/18 09:18 Dose: 40 mg Bisacodyl (Dulcolax Supp) 10 mg RECTAL DAILY PRN PRN Reason: SEVERE CONSITIPATION Carvedilol (Coreg) 3.125 mg PO BID [facility] Last Admin: 04/08/18 21:32 Dose: 3.125 mg Dextrose (D50w Vial) 50 ml IV.PUSH UNSCH PRN PRN Reason: PER HYPOGLYCEMIA PROTOCOL Diphenhydramine HCl (Benadryl) 50 mg PO [employer] [facility] Stop: 04/11/18 08:44 Last Admin: 04/07/18 15:03 Dose: 50 mg Fentanyl Citrate (Fentanyl Inj) 50 mcg IV.PUSH [employer] [facility] Stop: 04/11/18 08:44 Last Admin: 04/07/18 16:09 Dose: 50 mcg Glucagon (Glucagon Inj) 1 mg OTHER UNSCH PRN PRN Reason: for Hypoglycemia Protocol Piperacillin/Tazobactam/Dextrose (Zosyn 3.375 Gm Premix) 50 mls @ 100 mls/hr IV.SIG Q6H [facility] Last Infusion: 04/09/18 05:52 Dose: Infused Vancomycin HCl 1,500 mg/ (Sodium Chloride) 515 mls @ 257.5 mls/hr IV.SIG Q18H [facility] Last Infusion: 04/09/18 06:21 Dose: Infused Sodium Chloride (Ns Inj) 1,000 mls @ 100 mls/hr IV.CONT .Q10H [facility] Last Admin: 04/09/18 00:54 Dose: Not Given Heparin Sodium/Dextrose (Heparin/D5w 25,000 U/250 Ml) 25,000 unit in 250 mls @ 0 mls/hr IV.CONT TITRATE PRN; Protocol PRN Reason: Per Protocol Last Admin: 04/08/18 21:34 Dose: 1,400 units/hr, 14 mls/hr Insulin Aspart (Novolog Insulin Correctional Sugar Inj) 0 unit SQ ACHS AND 3AM ANGIE; Protocol Last Admin: 04/09/18 04:09 Dose: 1 unit Lisinopril (Prinivil) 20 mg PO DAILY [facility] Last Admin: 04/08/18 09:18 Dose: 20 mg Midazolam HCl (Versed Inj) 1 mg IV.PUSH [employer] [facility] Stop: 04/11/18 08:44 Last Admin: 04/07/18 16:08 Dose: 1 mg Pharmacy Profile Note (Vancomycin Consult Pharmacy) 1 each OTHER UNSCH PRN PRN Reason: Pharmacy to dose Prochlorperazine (Compazine Supp) 25 mg RECTAL Q12H PRN PRN Reason: NAUSEA OR VOMITING Sennosides (Senokot) 17.2 mg PO Q12H PRN PRN Reason: Moderate Constipation Sodium Chloride (Ns Flush) 2 ml IV.FLUSH BID [facility] Last Admin: 04/08/18 21:33 Dose: 2 ml Sodium Chloride (Ns Flush) 2 ml IV.FLUSH PRN PRN PRN Reason: FLUSH AFTER USING IV ACCESS Allergies Allergy/AdvReac Type Severity Reaction Status Date / Time No Known Allergies Allergy Verified 04/07/18 14:41 Home Medications Medication Instructions Recorded Confirmed Type amlodipine 2.5 mg PO DAILY 04/06/18 04/06/18 History ascorbic acid (vitamin C) [Vitamin 500 mg PO DAILY 04/06/18 04/06/18 History C] aspirin 325 mg PO DAILY 04/06/18 04/06/18 History atorvastatin 40 mg PO DAILY 04/06/18 04/06/18 History cholecalciferol (vitamin D3) 2,000 unit PO DAILY 04/06/18 04/06/18 History [Vitamin D3] cyanocobalamin (vitamin B-12) 2,500 mcg SUBLINGUAL DAILY 04/06/18 04/06/18 History [Vitamin B-12] glipizide 10 mg PO DAILY 04/06/18 04/06/18 History hydrochlorothiazide 25 mg PO DAILY 04/06/18 04/06/18 History lisinopril 20 mg PO DAILY 04/06/18 04/06/18 History metformin 1,500 mg PO QPM 04/06/18 04/06/18 History potassium chloride 20 meq PO DAILY 04/06/18 04/06/18 History sitagliptin [Januvia] 100 mg PO DAILY 04/06/18 04/06/18 History zinc 50 mg PO DAILY 04/06/18 04/06/18 History Physical Exam Vital signs: Vital Signs 04/08/18 09:00 04/08/18 10:00 04/08/18 11:00 Temperature Pulse Rate 92 H 94 H 90 Respiratory Rate Blood Pressure Pulse Oximetry 04/08/18 12:00 04/08/18 13:00 04/08/18 14:00 Temperature 98.7 F Pulse Rate 82 86 84 Respiratory Rate 16 Blood Pressure 121/64 Pulse Oximetry 96 04/08/18 15:00 04/08/18 16:00 04/08/18 17:00 Temperature Pulse Rate 94 H 86 76 Respiratory Rate Blood Pressure Pulse Oximetry 04/08/18 18:00 04/08/18 19:00 04/08/18 20:00 Temperature 98.9 F Pulse Rate 86 86 82 Respiratory Rate 18 Blood Pressure 128/74 Pulse Oximetry 99 04/08/18 21:00 04/08/18 22:00 04/08/18 23:00 Temperature Pulse Rate 80 84 83 Respiratory Rate Blood Pressure Pulse Oximetry 04/09/18 00:00 04/09/18 01:00 04/09/18 01:57 Temperature 98.6 F Pulse Rate 80 88 83 Respiratory Rate 16 Blood Pressure 112/69 Pulse Oximetry 96 04/09/18 01:59 04/09/18 03:00 04/09/18 04:00 Temperature 98.2 F Pulse Rate 91 H 84 84 Respiratory Rate 16 Blood Pressure 123/76 Pulse Oximetry 99 04/09/18 05:00 04/09/18 06:00 Temperature Pulse Rate 94 H 88 Respiratory Rate Blood Pressure Pulse Oximetry Intake & Output 04/08/18 04/09/18 04/09/18 18:59 06:59 18:59 Intake Total 3690 / 3690 2585 / 2585 Output Total 880 / 880 1250 / 1250 Balance 2810 / 2810 1335 / 1335 Weight 128 kg Intake: IV 2590 / 2590 1865 / 1865 Heparin/D5W 25,000 U/250 mL 25, 250 / 250 000 unit In 250 ml @ Per Protocol IV.CONT TITRATE PRN Rx #:[id number] NS Inj 1,000 ML @ 100 mls/hr IV 1000 / 1000 1000 / 1000 .CONT .Q10H ANGIE Rx#:[id number] Zosyn 3.375 GM Premix 50 ML @ 75 / 75 100 / 100 100 mls/hr IV.SIG Q6H ANGIE Rx#: [id number] Vancomycin Inj 1,500 MG In NS 515 / 515 515 / 515 Inj 500 ML @ 257.5 mls/hr IV. SIG Q18H ANGIE Rx#:[id number] Oral 1100 / 1100 720 / 720 Output: Urine 880 / 880 1250 / 1250 Other: Date of Last Bowel Movement 04/08/18 04/08/18 - Constitutional no acute distress - Routine Neck Exam Absent: JVD - Routine Respiratory Exam Present: CTA bilaterally - Routine Cardiovascular Exam Present: RRR, S1, S2. Absent: murmur, gallop - Routine Abdominal Exam Present: soft, normoactive bowel sounds. Absent: tenderness, organomegaly - Routine Extremities Exam Present: edema. Absent: cyanosis, clubbing Comments: Trace edema. Resolving RLE cellulitis. Results 04/09/18 05:49 04/09/18 05:49 Cardiac Enzymes 04/08/18 Range/Units 06:45 AST 16 (15-37) U/L Coagulation 04/07/18 04/07/18 04/08/18 Range/Units 09:31 17:44 06:45 APTT 32.4 H 111.3 H* D 32.8 H D (23.4-31.7) sec 04/08/18 04/08/18 04/09/18 Range/Units 15:41 23:11 05:49 APTT 30.3 34.3 H 33.9 H (23.4-31.7) sec Lipids 04/09/18 Range/Units 05:49 Triglycerides 130 (42-150) mg/dL Cholesterol 105 L (120-200) mg/dL HDL Cholesterol 33.3 L (40.0-60.0) mg/dL Cholesterol/HDL Ratio 3.15 Ratio CBC 04/08/18 04/09/18 Range/Units 06:45 05:49 WBC 8.9 11.1 H (4.0-11.0) th/mm3 RBC 3.91 L 3.87 L (4.50-5.90) mil/mm3 Hgb 12.3 L 12.0 L (13.0-17.0) gm/dL Hct 34.2 L 34.2 L (39.0-51.0) % Plt Count 221 221 (150-450) th/mm3 Neut # (Auto) 6.1 (1.8-7.7) th/mm3 Lymph # (Auto) 1.7 (1.0-4.8) th/mm3 Desha # (Auto) 0.7 (0.0-0.9) th/mm3 Eos # (Auto) 0.2 (0.0-0.4) th/mm3 Baso # (Auto) 0.1 (0.0-0.2) th/mm3 Comprehensive Metabolic Panel 04/08/18 04/09/18 Range/Units 06:45 05:49 Sodium 139 (136-145) meq/L Potassium 3.8 (3.5-5.1) meq/L Chloride 107 (98-107) meq/L Carbon Dioxide 25.1 (21.0-32.0) meq/L BUN 13 (7-18) mg/dL Creatinine 0.98 0.87 (0.60-1.30) mg/dL Calcium 8.5 (8.5-10.1) mg/dL AST 16 (15-37) U/L ALT 25 (12-78) U/L Alkaline Phosphatase 63 (45-117) U/L Total Protein 6.8 (6.4-8.2) g/dL Albumin 2.6 L (3.4-5.0) g/dL Intake and Output 04/08/18 04/09/18 04/09/18 22:59 06:59 14:59 Intake Total 2375 / 2375 1335 / 1335 Output Total 880 / 880 1250 / 1250 Balance 1495 / 1495 85 / 85 Intake: IV 1275 / 1275 615 / 615 Heparin/D5W 25,000 U/250 mL 25, 250 / 250 000 unit In 250 ml @ Per Protocol IV.CONT TITRATE PRN Rx #:[id number] NS Inj 1,000 ML @ 100 mls/hr IV 1000 / 1000 .CONT .Q10H ANGIE Rx#:[id number] Zosyn 3.375 GM Premix 50 ML @ 25 / 25 100 / 100 100 mls/hr IV.SIG Q6H ANGIE Rx#: [id number] Vancomycin Inj 1,500 MG In NS 515 / 515 Inj 500 ML @ 257.5 mls/hr IV. SIG Q18H ANGIE Rx#:[id number] Oral 1100 / 1100 720 / 720 Output: Urine 880 / 880 1250 / 1250 Other: Date of Last Bowel Movement 04/08/18 04/08/18 Weight 128 kg - Imaging and Cardiology Imaging: Impressions Carotid Doppler Study 04/08/18 13:14 CONCLUSION: 1. Right Internal Carotid Artery: Minimal atherosclerotic plaquing. No hemodynamically significant stenosis identified. 2. Left Internal Carotid Artery: Minimal atherosclerotic plaquing. No hemodynamically significant stenosis identified. Lower Extremity Ultrasound 04/08/18 13:14 CONCLUSION: 1. Vein mapping as above. Venous Doppler Study 04/08/18 13:14 CONCLUSION: The study is negative for bilateral lower extremity deep venous thrombosis. Assessment and Plan - Assessment (1) Coronary artery disease Code(s): I25.10 - Atherosclerotic heart disease of [place] coronary artery without angina pectoris Status: Acute Plan: Status post NSTEMI. Stable overnight. Cath shows significant RCA, prox LAD, and left main disease with EF ~50%. RECOMMEND await resolution of cellulitis prior to CABG, continue beta clarissa, TRAVIS-I. Will f/u as needed. (2) Hypertension Code(s): I10 - Essential (primary) hypertension Status: Chronic Plan: Stable. Mostly normotensive. (3) Dyslipidemia Code(s): E78.5 - Hyperlipidemia, unspecified Status: Chronic Plan: Acceptable lipid profile. Continue statin therapy. - Plan Code Status: full code Discussed Condition With: patient (1) Coronary artery disease Qualifiers: Coronary Disease-Associated Artery/Lesion type: [place] artery [place] vs. transplanted heart: [place] heart Associated angina: with unstable angina Qualified Code(s): I25.110 - Atherosclerotic heart disease of [place] coronary artery with unstable angina pectoris (2) Hypertension Qualifiers: Hypertension type: essential hypertension Qualified Code(s): I10 - Essential (primary) hypertension
[2018-04-09] MEDS: Lisinopril 20 MG Tablet PO SCH (08:54)
--- NOTE | 2018-04-09 09:59 | P.PN ---
Subjective Interval history: up in chair- good po no nausea or vomiting states last evening- had a brief chest discomfort when he laid flat this am- feels great- feels legs are much betrer too Physical Exam Vital signs: Vital Signs 04/08/18 10:00 04/08/18 11:00 04/08/18 12:00 Temperature 98.7 F Pulse Rate 94 H 90 82 Respiratory Rate 16 Blood Pressure 121/64 Pulse Oximetry 96 04/08/18 13:00 04/08/18 14:00 04/08/18 15:00 Temperature Pulse Rate 86 84 94 H Respiratory Rate Blood Pressure Pulse Oximetry 04/08/18 16:00 04/08/18 17:00 04/08/18 18:00 Temperature Pulse Rate 86 76 86 Respiratory Rate Blood Pressure Pulse Oximetry 04/08/18 19:00 04/08/18 20:00 04/08/18 21:00 Temperature 98.9 F Pulse Rate 86 82 80 Respiratory Rate 18 Blood Pressure 128/74 Pulse Oximetry 99 04/08/18 22:00 04/08/18 23:00 04/09/18 00:00 Temperature Pulse Rate 84 83 80 Respiratory Rate Blood Pressure Pulse Oximetry 04/09/18 01:00 04/09/18 01:57 04/09/18 01:59 Temperature 98.6 F Pulse Rate 88 83 91 H Respiratory Rate 16 Blood Pressure 112/69 Pulse Oximetry 96 04/09/18 03:00 04/09/18 04:00 04/09/18 05:00 Temperature 98.2 F Pulse Rate 84 84 94 H Respiratory Rate 16 Blood Pressure 123/76 Pulse Oximetry 99 04/09/18 06:00 Temperature Pulse Rate 88 Respiratory Rate Blood Pressure Pulse Oximetry Intake & Output 04/08/18 04/09/18 04/09/18 18:59 06:59 18:59 Intake Total 3690 / 3690 2585 / 2585 Output Total 880 / 880 1250 / 1250 Balance 2810 / 2810 1335 / 1335 Weight 128 kg Intake: IV 2590 / 2590 1865 / 1865 Heparin/D5W 25,000 U/250 mL 25, 250 / 250 000 unit In 250 ml @ Per Protocol IV.CONT TITRATE PRN Rx #:[id number] NS Inj 1,000 ML @ 100 mls/hr IV 1000 / 1000 1000 / 1000 .CONT .Q10H ANGIE Rx#:[id number] Zosyn 3.375 GM Premix 50 ML @ 75 / 75 100 / 100 100 mls/hr IV.SIG Q6H ANGIE Rx#: [id number] Vancomycin Inj 1,500 MG In NS 515 / 515 515 / 515 Inj 500 ML @ 257.5 mls/hr IV. SIG Q18H ANGIE Rx#:[id number] Oral 1100 / 1100 720 / 720 Output: Urine 880 / 880 1250 / 1250 Other: Date of Last Bowel Movement 04/08/18 04/08/18 Narrative: GENERAL: NAD HEAD: Normocephalic. EYES anciteric NECK: Supple, trachea midline. No JVD or lymphadenopathy. CARDIOVASCULAR: Regular rate and rhythm RESPIRATORY: Breath sounds equal bilaterally. No accessory muscle use. GASTROINTESTINAL: Abdomen soft, non-tender, nondistended. MUSCULOSKELETAL: No cyanosis, or edema. right wrist- cath site- splint in place left foot- big toe- posterior aspect- superficial dry ulcer, no erythema Right LE- erythema- marked improvement BACK: Nontender without obvious deformity. No CVA tenderness. Results - Labs CBC & Chem 7: 04/09/18 05:49 04/09/18 05:49 Laboratory Results - last 24 hr 04/08/18 04/08/18 04/08/18 06:45 11:56 15:41 WBC RBC Hgb Hct MCV MCH MCHC RDW Plt Count MPV APTT 30.3 Creatinine Estimated GFR POC Glucose 233 H Hemoglobin A1c 7.2 H Triglycerides Cholesterol LDL Cholesterol, Calc HDL Cholesterol Cholesterol/HDL Ratio Nasal Screen MRSA (PCR) Vancomycin Trough Blood Type Blood Type Recheck Antibody Screen 04/08/18 04/08/18 04/08/18 15:41 17:46 20:06 WBC RBC Hgb Hct MCV MCH MCHC RDW Plt Count MPV APTT Creatinine Estimated GFR POC Glucose 174 H 218 H Hemoglobin A1c Triglycerides Cholesterol LDL Cholesterol, Calc HDL Cholesterol Cholesterol/HDL Ratio Nasal Screen MRSA (PCR) Vancomycin Trough Blood Type O Positive Blood Type Recheck Required Antibody Screen Negative 04/08/18 04/08/18 04/09/18 22:30 23:11 03:55 WBC RBC Hgb Hct MCV MCH MCHC RDW Plt Count MPV APTT 34.3 H Creatinine Estimated GFR POC Glucose Hemoglobin A1c Triglycerides Cholesterol LDL Cholesterol, Calc HDL Cholesterol Cholesterol/HDL Ratio Nasal Screen MRSA (PCR) Not detected Vancomycin Trough 8.1 Blood Type Blood Type Recheck Antibody Screen 04/09/18 04/09/18 04/09/18 04:01 05:49 05:49 WBC 11.1 H RBC 3.87 L Hgb 12.0 L Hct 34.2 L MCV 88.2 MCH 31.1 MCHC 35.2 RDW 13.4 Plt Count 221 MPV 8.4 APTT Creatinine 0.87 Estimated GFR 88 L POC Glucose 158 H Hemoglobin A1c Triglycerides 130 Cholesterol 105 L LDL Cholesterol, Calc 46 HDL Cholesterol 33.3 L Cholesterol/HDL Ratio 3.15 Nasal Screen MRSA (PCR) Vancomycin Trough Blood Type Blood Type Recheck Antibody Screen 04/09/18 04/09/18 05:49 08:06 WBC RBC Hgb Hct MCV MCH MCHC RDW Plt Count MPV APTT 33.9 H Creatinine Estimated GFR POC Glucose 170 H Hemoglobin A1c Triglycerides Cholesterol LDL Cholesterol, Calc HDL Cholesterol Cholesterol/HDL Ratio Nasal Screen MRSA (PCR) Vancomycin Trough Blood Type Blood Type Recheck Antibody Screen Microbiology 04/08/18 11:12 Stool Stool Occult Blood ([place]) - Final Hemoccult negative 04/06/18 18:40 Blood - Peripheral Aerobic Blood Culture - Preliminary No growth in 2 days 04/06/18 18:40 Blood - Peripheral Anaerobic Blood Culture - Preliminary No growth in 2 days 04/06/18 18:45 Blood - Peripheral Aerobic Blood Culture - Preliminary No growth in 2 days 04/06/18 18:45 Blood - Peripheral Anaerobic Blood Culture - Preliminary No growth in 2 days - Imaging Impressions Carotid Doppler Study 04/08/18 13:14 CONCLUSION: 1. Right Internal Carotid Artery: Minimal atherosclerotic plaquing. No hemodynamically significant stenosis identified. 2. Left Internal Carotid Artery: Minimal atherosclerotic plaquing. No hemodynamically significant stenosis identified. Lower Extremity Ultrasound 04/08/18 13:14 CONCLUSION: 1. Vein mapping as above. Venous Doppler Study 04/08/18 13:14 CONCLUSION: The study is negative for bilateral lower extremity deep venous thrombosis. - Procedures 04/07- cardiac cath 1. Cykvgcgx-fw-fdvzro disease of the proximal LAD and of the right coronary. 2. 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 2. Good left to right collaterals. 3. Low normal left ventricular systolic function with ejection fraction estimated at 50%. Assessment and Plan - Plan 67-year-old man with CAD- NSTEMI S/P cath with 2VD -Heparin drip, beta-clarissa, aspirin, nitroglycerin paste, statins -Cardiology ff -Dr. Bruno ff - plan for eventual CABG when cleared By ID - patient prefers to have procedure done during this admission Right lower extremity cellulitis -clinically improving Blood cultures negative so far d/w ID this am - cotninue on antibitoics- Ancef + VAncomycin Left big toe- superficial dry ulcer- no singns of infection - advise OP ff up with a Podiatry for routine podiatry care Diabetes mellitus, type 2 - per last A1C- around 9 - here with our diet- good readings - continue Sliding scale insulin. - All hyperglycemic agents on hold- as OP was on Metformin, glipizide and Januvia - Monitor blood glucose - d/w them goals Hypertension- improved - on coreg, LIinsopril 20 mg daily - Continue home medications JESUS- resolved - good urine output - good po intake - Heplock. monitor BMP DVT prophylaxis: Heparin
[2018-04-09] MEDS ORDERED: ceFAZolin Inj 2,000 MG in Sodium Chlor 0.9% Inj 80 ML IV.SIG SCH (10:00)
[2018-04-09] MEDS ORDERED: Sod Chloride 0.9% Inj 1,000 ML IV.CONT SCH (10:05)
[2018-04-09] MEDS: ceFAZolin 2 GM Premix Inj 2 GM/50 ML PIGGYBACK IV.SIG SCH ×2 (11:03→18:28)
[2018-04-09] MEDS: Heparin Drip 25,000 UNIT/250 ML BAG IV.CONT PRN (12:32)
--- NOTE | 2018-04-09 14:32 | P.PNCV ---
- Note Subjective/Hospital Course: A 67-year-old male with history of coronary artery disease, presented to the emergency room with chest pain, dyspnea with minimal to mild exertion. He had a near syncopal episode at home when he was trying to get up to the bathroom. He also has been complaining of some swelling and erythema and pain to his right lower extremity. Denied having any injury or any kind of insect bites. His troponins were elevated. He underwent cardiac catheterization, which showed ejection fraction of 50%, mild to moderate disease of the proximal LAD and the right coronary artery. The right coronary artery was diffusely diseased, basically totally occluded at the ostium. There were left to right collaterals. Left main disease of 50%, IVUS was completed for the left main, which showed 60%. We were consulted to evaluate for coronary artery bypass grafting. PAST MEDICAL HISTORY: Includes coronary artery disease, prior stenting 2005 and then also another cardiac catheterization in 2008 where he underwent 2 stents to the proximal and mid RCA, diabetes mellitus, hypertension, sleep apnea. He had a TIA in 2005, hyperlipidemia. 04/09 pt seen and evaluated by KIARRA campbell for surgery , not to use RLE for harvesting continue IV antibiotics for now right leg has been improving daily carotid US unremarkable lower ext doppler, no DVT Objective: Vital Signs - 24 hr 04/08/18 15:00 04/08/18 16:00 04/08/18 17:00 Temperature Pulse Rate 94 H 86 76 Respiratory Rate Blood Pressure Pulse Oximetry 04/08/18 18:00 04/08/18 19:00 04/08/18 20:00 Temperature 98.9 F Pulse Rate 86 86 82 Respiratory Rate 18 Blood Pressure 128/74 Pulse Oximetry 99 04/08/18 21:00 04/08/18 22:00 04/08/18 23:00 Temperature Pulse Rate 80 84 83 Respiratory Rate Blood Pressure Pulse Oximetry 04/09/18 00:00 04/09/18 01:00 04/09/18 01:57 Temperature 98.6 F Pulse Rate 80 88 83 Respiratory Rate 16 Blood Pressure 112/69 Pulse Oximetry 96 04/09/18 01:59 04/09/18 03:00 04/09/18 04:00 Temperature 98.2 F Pulse Rate 91 H 84 84 Respiratory Rate 16 Blood Pressure 123/76 Pulse Oximetry 99 04/09/18 05:00 04/09/18 06:00 04/09/18 07:00 Temperature Pulse Rate 94 H 88 91 H Respiratory Rate Blood Pressure Pulse Oximetry 04/09/18 08:00 04/09/18 09:00 04/09/18 10:00 Temperature 98.3 F Pulse Rate 90 94 H 92 H Respiratory Rate 20 Blood Pressure 132/88 Pulse Oximetry 96 04/09/18 11:00 04/09/18 12:00 Temperature 98.9 F Pulse Rate 91 H 84 Respiratory Rate 20 Blood Pressure 104/67 Pulse Oximetry 95 GENERAL: A&O x 3 SKIN: Warm and dry. right lower leg edematous but improving RLE with erythem, edema extending to the knee no open sores no crepitus HEAD: Normocephalic. EYES: No scleral icterus. No injection or drainage. NECK: Supple, trachea midline. No JVD or lymphadenopathy. CARDIOVASCULAR: Regular rate and rhythm without murmurs, gallops, or rubs. RESPIRATORY: Breath sounds equal bilaterally. No accessory muscle use. GASTROINTESTINAL: Abdomen soft, non-tender, nondistended. MUSCULOSKELETAL: No cyanosis, or edema. BACK: Nontender without obvious deformity. No CVA tenderness. Labs: Laboratory Results - last 12 hr 04/08/18 04/09/18 04/09/18 22:30 03:55 04:01 WBC RBC Hgb Hct MCV MCH MCHC RDW Plt Count MPV APTT Creatinine Estimated GFR POC Glucose 158 H Triglycerides Cholesterol LDL Cholesterol, Calc HDL Cholesterol Cholesterol/HDL Ratio Nasal Screen MRSA (PCR) Not detected Vancomycin Trough 8.1 04/09/18 04/09/18 04/09/18 05:49 05:49 05:49 WBC 11.1 H RBC 3.87 L Hgb 12.0 L Hct 34.2 L MCV 88.2 MCH 31.1 MCHC 35.2 RDW 13.4 Plt Count 221 MPV 8.4 APTT 33.9 H Creatinine 0.87 Estimated GFR 88 L POC Glucose Triglycerides 130 Cholesterol 105 L LDL Cholesterol, Calc 46 HDL Cholesterol 33.3 L Cholesterol/HDL Ratio 3.15 Nasal Screen MRSA (PCR) Vancomycin Trough 04/09/18 04/09/18 04/09/18 08:06 11:09 12:58 WBC RBC Hgb Hct MCV MCH MCHC RDW Plt Count MPV APTT 34.1 H Creatinine Estimated GFR POC Glucose 170 H 269 H Triglycerides Cholesterol LDL Cholesterol, Calc HDL Cholesterol Cholesterol/HDL Ratio Nasal Screen MRSA (PCR) Vancomycin Trough Result Diagrams: 04/09/18 05:49 04/09/18 05:49 Telemetry: NSR - Plan (2) Cellulitis (3) Coronary artery disease (4) Hypertension (2) Cellulitis Qualifiers: Site of cellulitis: extremity Site of cellulitis of extremity: lower extremity Laterality: left Qualified Code(s): L03.116 - Cellulitis of left lower limb (3) Coronary artery disease Qualifiers: Coronary Disease-Associated Artery/Lesion type: [place] artery [place] vs. transplanted heart: [place] heart Associated angina: with unstable angina Qualified Code(s): I25.110 - Atherosclerotic heart disease of [place] coronary artery with unstable angina pectoris (4) Hypertension Qualifiers: Hypertension type: essential hypertension Qualified Code(s): I10 - Essential (primary) hypertension
[2018-04-09 17:27] LABS: Hemoglobin A1c 7.2 % (4.3-6.0)
[2018-04-10 01:12] LABS: Bilirubin,Urine Negative (Negative); Clarity,Urine Clear (Clear); Color,Urine Yellow (Yellw/Straw); Glucose,Urine (UA) 500 or Greater mg/dL (Negative); Leukocyte Esterase,Urine Negative (Negative); Mucus,Urine Few /lpf (Occasional); Nitrite,Urine Negative (Negative); Specific Gravity,Urine 1.007 (1.002-1.035)
[2018-04-10] MEDS: ceFAZolin 2 GM Premix Inj 2 GM/50 ML PIGGYBACK IV.SIG SCH ×3 (02:58→18:30)
[2018-04-10] MEDS: Insulin NovoLOG Aspart Correctional Sugar Inj SQ SCH ×5 (02:59→20:43)
[2018-04-10] MEDS: Vancomycin Inj 1,500 MG in Sodium Chlor 0.9% Inj 500 ML IV.SIG SCH ×2 (04:16→15:36)
[2018-04-10] MEDS: Heparin Drip 25,000 UNIT/250 ML BAG IV.CONT PRN ×2 (04:17→23:42)
[2018-04-10] MEDS ORDERED: Metoprolol Tartrate 25 MG Tablet PO SCH (05:00)
--- NOTE | 2018-04-10 10:11 | P.PN ---
Subjective Interval history: looking forward to surgery today no complains overnight no chest pain or shortness of breath Physical Exam Vital signs: Vital Signs 04/09/18 11:00 04/09/18 12:00 04/09/18 13:00 Temperature 98.9 F Pulse Rate 91 H 84 78 Respiratory Rate 20 Blood Pressure 104/67 Pulse Oximetry 95 04/09/18 14:00 04/09/18 15:00 04/09/18 16:00 Temperature 99.0 F Pulse Rate 74 88 88 Respiratory Rate 20 Blood Pressure 98/73 L Pulse Oximetry 95 04/09/18 17:00 04/09/18 18:00 04/09/18 19:00 Temperature Pulse Rate 86 91 H 84 Respiratory Rate Blood Pressure Pulse Oximetry 04/09/18 20:00 04/09/18 21:00 04/09/18 22:00 Temperature 98.2 F Pulse Rate 84 82 78 Respiratory Rate 18 Blood Pressure 133/66 Pulse Oximetry 96 04/09/18 23:00 04/10/18 00:00 04/10/18 01:00 Temperature 98.0 F Pulse Rate 75 83 72 Respiratory Rate 18 Blood Pressure 127/73 Pulse Oximetry 97 04/10/18 02:00 04/10/18 03:00 04/10/18 04:00 Temperature Pulse Rate 71 78 86 Respiratory Rate Blood Pressure Pulse Oximetry 04/10/18 05:00 04/10/18 06:00 04/10/18 07:00 Temperature Pulse Rate 78 76 82 Respiratory Rate Blood Pressure Pulse Oximetry 04/10/18 08:00 04/10/18 09:00 Temperature 98.1 F Pulse Rate 86 82 Respiratory Rate 20 Blood Pressure 143/76 H Pulse Oximetry 95 Intake & Output 04/09/18 04/10/18 04/10/18 18:59 06:59 18:59 Intake Total 2325 / 2325 1585 / 1585 125 / 125 Output Total 1825 / 1825 2050 / 2050 Balance 500 / 500 -465 / -465 125 / 125 Weight 128.5 kg Intake: IV 1065 / 1065 865 / 865 125 / 125 Heparin/D5W 25,000 U/250 mL 25, 250 / 250 250 / 250 125 / 125 000 unit In 250 ml @ Per Protocol IV.CONT TITRATE PRN Rx #:[id number] NS Inj 1,000 ML @ 100 mls/hr IV 200 / 200 .CONT .Q10H ANGIE Rx#:[id number] Zosyn 3.375 GM Premix 50 ML @ 50 / 50 100 mls/hr IV.SIG Q6H ANGIE Rx#: [id number] Vancomycin Inj 1,500 MG In NS 515 / 515 515 / 515 Inj 500 ML @ 257.5 mls/hr IV. SIG Q12H ANGIE Rx#:[id number] Ancef 2 GM Premix Inj 2 gm In 50 / 50 100 / 100 50 ml @ 100 mls/hr IV.SIG Q8H ANGIE Rx#:[id number] Oral 1260 / 1260 720 / 720 Output: Urine 1825 / 1825 2049 / 2049 Other: Date of Last Bowel Movement 04/08/18 04/08/18 04/08/18 Narrative: NAD anicteric NECK: Supple, trachea midline. No JVD or lymphadenopathy. CARDIOVASCULAR: Regular rate and rhythm RESPIRATORY: Breath sounds equal bilaterally. No accessory muscle use. GASTROINTESTINAL: Abdomen soft, non-tender, nondistended. MUSCULOSKELETAL: No cyanosis, or edema. rught foot- big toe- posterior aspect- superficial dry ulcer, no erythema Right LE- erythema- erythema improving, demarcating Results - Labs CBC & Chem 7: 04/09/18 05:49 04/09/18 05:49 Laboratory Results - last 24 hr 04/09/18 04/09/18 04/09/18 05:49 11:09 12:58 APTT 34.1 H POC Glucose 269 H Hemoglobin A1c 7.2 H Urine Color Urine Clarity Urine pH Ur Specific [place] Urine Protein Urine Glucose (UA) Urine Ketones Urine Occult Blood Urine Nitrate Urine Bilirubin Urine Urobilinogen Ur Leukocyte Esterase Urine RBC Urine WBC Urine Mucus Micro UA Comment Ur Microscopic Review Urine Culture Comments MTS Gel Crossmatch 04/09/18 04/09/18 04/09/18 15:59 17:13 21:21 APTT 33.5 H POC Glucose 137 H Hemoglobin A1c Urine Color Urine Clarity Urine pH Ur Specific [place] Urine Protein Urine Glucose (UA) Urine Ketones Urine Occult Blood Urine Nitrate Urine Bilirubin Urine Urobilinogen Ur Leukocyte Esterase Urine RBC Urine WBC Urine Mucus Micro UA Comment Ur Microscopic Review Urine Culture Comments MTS Gel Crossmatch See Detail 04/09/18 04/10/18 04/10/18 21:42 00:45 06:12 APTT POC Glucose 293 H 214 H Hemoglobin A1c Urine Color Yellow Urine Clarity Clear Urine pH 5.0 Ur Specific [place] 1.007 Urine Protein Negative Urine Glucose (UA) 500 or greater Urine Ketones Negative Urine Occult Blood Negative Urine Nitrate Negative Urine Bilirubin Negative Urine Urobilinogen Less than 2 Ur Leukocyte Esterase Negative Urine RBC Less than 1 Urine WBC Less than 1 Urine Mucus Few H Micro UA Comment Culture not ind Ur Microscopic Review Not Reportable Urine Culture Comments Culture not ind MTS Gel Crossmatch 04/10/18 04/10/18 06:14 07:39 APTT 39.7 H POC Glucose 173 H Hemoglobin A1c Urine Color Urine Clarity Urine pH Ur Specific [place] Urine Protein Urine Glucose (UA) Urine Ketones Urine Occult Blood Urine Nitrate Urine Bilirubin Urine Urobilinogen Ur Leukocyte Esterase Urine RBC Urine WBC Urine Mucus Micro UA Comment Ur Microscopic Review Urine Culture Comments MTS Gel Crossmatch Microbiology 04/06/18 18:40 Blood - Peripheral Aerobic Blood Culture - Preliminary No growth in 3 days 04/06/18 18:40 Blood - Peripheral Anaerobic Blood Culture - Preliminary No growth in 3 days 04/06/18 18:45 Blood - Peripheral Aerobic Blood Culture - Preliminary No growth in 3 days 04/06/18 18:45 Blood - Peripheral Anaerobic Blood Culture - Preliminary No growth in 3 days - Procedures 04/07- cardiac cath 1. [id number] disease of the proximal LAD and of the right coronary. 2. 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 2. Good left to right collaterals. 3. Low normal left ventricular systolic function with ejection fraction estimated at 50%. Assessment and Plan - Plan 67-year-old man with CAD- NSTEMI S/P cath with 2VD -Heparin drip- off for OR, beta-clarissa, aspirin, nitroglycerin paste, statins -Cardiology ff -Dr. Bruno ff - plan for eventual CABG today Right lower extremity cellulitis -clinically improving Blood cultures negative so far d/w ID 04/09 - contiinue on antibitoics- Ancef + VAncomycin Left big toe- superficial dry ulcer- no singns of infection - advise OP ff up with a Podiatry for routine podiatry care Diabetes mellitus, type 2 - per last A1C- around 9 as OP and 3 months before that was 11 about 6 months - here with our diet- good readings - continue Sliding scale insulin. - All hyperglycemic agents on hold- as OP was on Metformin, glipizide and Januvia- restart eventually post op - Monitor blood glucose - d/w them goals Hypertension- improved - on coreg, LIinsopril 20 mg daily - Continue home medications JESUS- resolved - good urine output - good po intake - Heplock. monitor BMP DVT prophylaxis: Heparin- off for surgery
[2018-04-10] MEDS ORDERED: Dextrose 50% in Water 50 ML Vial IV.PUSH PRN (10:13)
[2018-04-10] MEDS ORDERED: Sodium Chloride 0.9% Irr Bot 500 ML, ceFAZolin Inj 500 MG IRRIGATION SCH ×2 (10:15)
[2018-04-10] MEDS ORDERED: Sodium Chlor 0.9% Inj 77.5 ML, Papaverine Inj 60 MG, Nitroglycerin Inj 100 MCG, dilTIAZ... IRRIGATION SCH ×3 (10:15)
[2018-04-10] MEDS ORDERED: MethylPREDNISolone Sod Succinate Inj 125 MG/2 ML Vial ONE (10:20)
[2018-04-10] MEDS ORDERED: Heparin - SQ 10,000 UNITS/ML Vial ONE (10:20)
[2018-04-10] MEDS ORDERED: Heparin 10,000 UNITS/10 ML Vial (for IV use) ONE (10:21)
[2018-04-10] MEDS ORDERED: ceFAZolin Inj 2,000 MG in Sodium Chlor 0.9% Inj 80 ML IV.SIG SCH (11:00)
[2018-04-10] MEDS ORDERED: Insulin Regular (For Infusion) 100 UNIT in Sodium Chlor 0.9% Inj 99 ML IV.CONT PRN (11:00)
--- NOTE | 2018-04-10 14:19 | P.PNCV ---
- Note Subjective/Hospital Course: A 67-year-old male with history of coronary artery disease, presented to the emergency room with chest pain, dyspnea with minimal to mild exertion. He had a near syncopal episode at home when he was trying to get up to the bathroom. He also has been complaining of some swelling and erythema and pain to his right lower extremity. Denied having any injury or any kind of insect bites. His troponins were elevated. He underwent cardiac catheterization, which showed ejection fraction of 50%, mild to moderate disease of the proximal LAD and the right coronary artery. The right coronary artery was diffusely diseased, basically totally occluded at the ostium. There were left to right collaterals. Left main disease of 50%, IVUS was completed for the left main, which showed 60%. We were consulted to evaluate for coronary artery bypass grafting. PAST MEDICAL HISTORY: Includes coronary artery disease, prior stenting 2005 and then also another cardiac catheterization in 2008 where he underwent 2 stents to the proximal and mid RCA, diabetes mellitus, hypertension, sleep apnea. He had a TIA in 2005, hyperlipidemia. 04/09 pt seen and evaluated by KIARRA campbell for surgery , not to use RLE for harvesting continue IV antibiotics for now right leg has been improving daily carotid US unremarkable lower ext doppler, no DVT 04/10 waiting for surgery Objective: Vital Signs - 24 hr 04/09/18 15:00 04/09/18 16:00 04/09/18 17:00 Temperature 99.0 F Pulse Rate 88 88 86 Respiratory Rate 20 Blood Pressure 98/73 L Pulse Oximetry 95 04/09/18 18:00 04/09/18 19:00 04/09/18 20:00 Temperature 98.2 F Pulse Rate 91 H 84 84 Respiratory Rate 18 Blood Pressure 133/66 Pulse Oximetry 96 04/09/18 21:00 04/09/18 22:00 04/09/18 23:00 Temperature Pulse Rate 82 78 75 Respiratory Rate Blood Pressure Pulse Oximetry 04/10/18 00:00 04/10/18 01:00 04/10/18 02:00 Temperature 98.0 F Pulse Rate 83 72 71 Respiratory Rate 18 Blood Pressure 127/73 Pulse Oximetry 97 04/10/18 03:00 04/10/18 04:00 04/10/18 05:00 Temperature Pulse Rate 78 86 78 Respiratory Rate Blood Pressure Pulse Oximetry 04/10/18 06:00 04/10/18 07:00 04/10/18 08:00 Temperature 98.1 F Pulse Rate 76 82 86 Respiratory Rate 20 Blood Pressure 143/76 H Pulse Oximetry 95 04/10/18 09:00 04/10/18 10:00 Temperature Pulse Rate 82 88 Respiratory Rate Blood Pressure Pulse Oximetry GENERAL: SKIN: Warm and dry. right leg less edematous , erythema improving HEAD: Normocephalic. EYES: No scleral icterus. No injection or drainage. NECK: Supple, trachea midline. No JVD or lymphadenopathy. CARDIOVASCULAR: Regular rate and rhythm without murmurs, gallops, or rubs. RESPIRATORY: Breath sounds equal bilaterally. No accessory muscle use. GASTROINTESTINAL: Abdomen soft, non-tender, nondistended. MUSCULOSKELETAL: No cyanosis, or edema. BACK: Nontender without obvious deformity. No CVA tenderness. Labs: Laboratory Results - last 12 hr 04/09/18 04/10/18 04/10/18 15:59 06:12 06:14 APTT 39.7 H POC Glucose 214 H MTS Gel Crossmatch See Detail 04/10/18 04/10/18 07:39 10:56 APTT POC Glucose 173 H 155 H MTS Gel Crossmatch Result Diagrams: 04/09/18 05:49 04/09/18 05:49 - Plan (2) Cellulitis (3) Coronary artery disease Plan: waiting on surgery (4) Hypertension (2) Cellulitis Qualifiers: Site of cellulitis: extremity Site of cellulitis of extremity: lower extremity Laterality: left Qualified Code(s): L03.116 - Cellulitis of left lower limb (3) Coronary artery disease Qualifiers: Coronary Disease-Associated Artery/Lesion type: [place] artery [place] vs. transplanted heart: [place] heart Associated angina: with unstable angina Qualified Code(s): I25.110 - Atherosclerotic heart disease of [place] coronary artery with unstable angina pectoris (4) Hypertension Qualifiers: Hypertension type: essential hypertension Qualified Code(s): I10 - Essential (primary) hypertension
[2018-04-11] MEDS: ceFAZolin 2 GM Premix Inj 2 GM/50 ML PIGGYBACK IV.SIG SCH ×3 (02:53→21:56)
[2018-04-11] MEDS ORDERED: Pharmacy Ordered Lab Info OTHER ONE (03:45)
[2018-04-11] MEDS: Insulin NovoLOG Aspart Correctional Sugar Inj SQ SCH ×5 (03:51→21:57)
[2018-04-11] MEDS: Vancomycin Inj 1,500 MG in Sodium Chlor 0.9% Inj 500 ML IV.SIG SCH ×2 (03:51→16:22)
--- NOTE | 2018-04-11 07:55 | P.PN ---
Subjective Interval history: awake and alert no fever no complains of chest discomfort, up and ambulating voiding well surgery was rescheduled not till Friday Physical Exam Vital signs: Vital Signs 04/10/18 08:00 04/10/18 09:00 04/10/18 10:00 Temperature 98.1 F Pulse Rate 86 82 88 Respiratory Rate 20 Blood Pressure 143/76 H Pulse Oximetry 95 04/10/18 11:00 04/10/18 12:00 04/10/18 13:00 Temperature 98.2 F Pulse Rate 81 72 70 Respiratory Rate 20 Blood Pressure 129/86 Pulse Oximetry 96 04/10/18 14:00 04/10/18 15:00 04/10/18 16:00 Temperature 97.9 F Pulse Rate 78 87 86 Respiratory Rate 18 Blood Pressure 138/84 Pulse Oximetry 96 04/10/18 17:00 04/10/18 18:00 04/10/18 19:00 Temperature Pulse Rate 88 90 81 Respiratory Rate Blood Pressure Pulse Oximetry 04/10/18 20:00 04/10/18 21:00 04/10/18 22:00 Temperature 99.5 F Pulse Rate 81 78 80 Respiratory Rate 18 Blood Pressure 153/72 H Pulse Oximetry 96 04/10/18 23:00 04/11/18 00:00 04/11/18 01:00 Temperature 98.1 F Pulse Rate 89 81 73 Respiratory Rate 18 Blood Pressure 133/62 Pulse Oximetry 96 04/11/18 02:00 04/11/18 03:00 04/11/18 03:29 Temperature 98.2 F Pulse Rate 74 72 81 Respiratory Rate 18 Blood Pressure 141/73 H Pulse Oximetry 95 04/11/18 04:00 04/11/18 05:00 04/11/18 05:57 Temperature Pulse Rate 75 71 71 Respiratory Rate Blood Pressure Pulse Oximetry Intake & Output 04/10/18 04/11/18 04/11/18 18:59 06:59 18:59 Intake Total 780 / 780 1735 / 1735 Output Total 1175 / 1175 500 / 500 Balance -395 / -395 1235 / 1235 Weight 131.5 kg Intake: IV 300 / 300 1255 / 1255 Heparin/D5W 25,000 U/250 mL 25, 250 / 250 125 / 125 000 unit In 250 ml @ Per Protocol IV.CONT TITRATE PRN Rx #:[id number] Vancomycin Inj 1,500 MG In NS 1030 / 1030 Inj 500 ML @ 257.5 mls/hr IV. SIG Q12H ANGIE Rx#:[id number] Ancef 2 GM Premix Inj 2 gm In 50 / 50 100 / 100 50 ml @ 100 mls/hr IV.SIG Q8H ANGIE Rx#:[id number] Oral 480 / 480 480 / 480 Output: Urine 1175 / 1175 500 / 500 Other: Date of Last Bowel Movement 04/08/18 Narrative: NAD anicteric NECK: Supple, trachea midline. No JVD or lymphadenopathy. Regular rate and rhythm clear Breath sounds equal bilaterally. No accessory muscle use. Abdomen soft, non-tender, good bowel sounds MUSCULOSKELETAL: No cyanosis, or edema. right- big toe- posterior aspect- superficial dry ulcer, no erythema Right LE- erythema markedly improved Results - Labs CBC & Chem 7: 04/09/18 05:49 04/09/18 05:49 Laboratory Results - last 24 hr 04/09/18 04/10/18 04/10/18 15:59 10:56 17:09 APTT POC Glucose 155 H 237 H Vancomycin Trough MTS Gel Crossmatch See Detail 04/10/18 04/10/18 04/11/18 19:55 21:12 03:25 APTT 37.4 H POC Glucose 260 H Vancomycin Trough 12.6 H MTS Gel Crossmatch 04/11/18 04/11/18 03:25 03:28 APTT 41.3 H POC Glucose 200 H Vancomycin Trough MTS Gel Crossmatch Microbiology 04/06/18 18:40 Blood - Peripheral Aerobic Blood Culture - Preliminary No growth in 4 days 04/06/18 18:40 Blood - Peripheral Anaerobic Blood Culture - Preliminary No growth in 4 days 04/06/18 18:45 Blood - Peripheral Aerobic Blood Culture - Preliminary No growth in 4 days 04/06/18 18:45 Blood - Peripheral Anaerobic Blood Culture - Preliminary No growth in 4 days - Procedures 04/07- cardiac cath 1. Tjyootlh-il-phhgnh disease of the proximal LAD and of the right coronary. 2. 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 2. Good left to right collaterals. 3. Low normal left ventricular systolic function with ejection fraction estimated at 50%. Assessment and Plan - Plan 67-year-old man with CAD- NSTEMI S/P cath with 2VD -Heparin drip, beta-clarissa, aspirin, nitroglycerin paste, statins -Cardiology ff -Dr. Bruno ff - plan for eventual CABG Friday Right lower extremity cellulitis - continues to improve dramatically Blood cultures negative so far d/w ID 04/09 - continue on antibiotics- Ancef + VAncomycin Right big toe- superficial dry ulcer- no signs of infection - advise OP ff up with a Podiatry for routine podiatry care Diabetes mellitus, type 2 - per last A1C- around 9 as OP and 3 months before that was 11 about 6 months - here with our diet- good readings - continue Sliding scale insulin. - All hyperglycemic agents on hold- as OP was on Metformin, glipizide and Januvia- - Monitor blood glucose- BS- 200 - d/w them goals - since surgery not till Friday - will start levemer 8 units bid Hypertension- improved - on coreg, Lisinpril 20 mg daily - Continue home medications JESUS- resolved - good urine output - good po intake - Heplock. monitor BMP DVT prophylaxis: Heparin- off for surgery
[2018-04-11] MEDS: Insulin Detemir Inj 1,000 UNIT/10 ML Vial SQ SCH ×2 (09:28→21:57)
[2018-04-12] MEDS: Heparin Drip 25,000 UNIT/250 ML BAG IV.CONT PRN ×2 (04:07→17:57)
[2018-04-12] MEDS: ceFAZolin 2 GM Premix Inj 2 GM/50 ML PIGGYBACK IV.SIG SCH ×3 (04:08→20:20)
[2018-04-12] MEDS: Vancomycin Inj 1,500 MG in Sodium Chlor 0.9% Inj 500 ML IV.SIG SCH ×2 (05:14→16:30)
[2018-04-12] MEDS: Insulin NovoLOG Aspart Correctional Sugar Inj SQ SCH ×5 (05:15→21:59)
--- NOTE | 2018-04-12 07:52 | P.PN ---
Subjective Interval history: awake and alert good po - eating well no complains Physical Exam Vital signs: Vital Signs 04/11/18 08:00 04/11/18 09:00 04/11/18 10:00 Temperature 98.8 F Pulse Rate 86 84 78 Respiratory Rate 18 Blood Pressure 133/72 Pulse Oximetry 95 04/11/18 11:00 04/11/18 12:00 04/11/18 13:00 Temperature 98.6 F Pulse Rate 74 84 72 Respiratory Rate 18 Blood Pressure 147/73 H Pulse Oximetry 96 04/11/18 14:00 04/11/18 15:00 04/11/18 16:00 Temperature 98.8 F Pulse Rate 73 74 74 Respiratory Rate 18 Blood Pressure 150/76 H Pulse Oximetry 96 04/11/18 17:00 04/11/18 18:00 04/11/18 19:00 Temperature Pulse Rate 78 78 75 Respiratory Rate Blood Pressure Pulse Oximetry 04/11/18 20:00 04/11/18 21:00 04/11/18 22:00 Temperature 98.4 F Pulse Rate 68 70 72 Respiratory Rate 16 Blood Pressure 168/75 H Pulse Oximetry 97 04/11/18 23:00 04/12/18 00:00 04/12/18 01:00 Temperature 98.2 F Pulse Rate 70 70 66 Respiratory Rate 16 Blood Pressure 155/72 H Pulse Oximetry 97 04/12/18 02:00 04/12/18 03:00 04/12/18 04:00 Temperature 97.9 F Pulse Rate 62 75 79 Respiratory Rate 16 Blood Pressure 147/80 H Pulse Oximetry 98 04/12/18 05:00 04/12/18 06:00 04/12/18 07:00 Temperature Pulse Rate 82 64 62 Respiratory Rate Blood Pressure Pulse Oximetry Intake & Output 04/11/18 04/12/18 04/12/18 18:59 06:59 18:59 Intake Total 845 / 845 665 / 665 Output Total 1200 / 1200 1200 / 1200 Balance -355 / -355 -535 / -535 Weight 131.5 kg Intake: IV 125 / 125 665 / 665 Heparin/D5W 25,000 U/250 mL 25, 125 / 125 000 unit In 250 ml @ Per Protocol IV.CONT TITRATE PRN Rx #:[id number] Vancomycin Inj 1,500 MG In NS 515 / 515 Inj 500 ML @ 257.5 mls/hr IV. SIG Q12H ANGIE Rx#:[id number] Ancef 2 GM Premix Inj 2 gm In 150 / 150 50 ml @ 100 mls/hr IV.SIG Q8H ANGIE Rx#:[id number] Oral 720 / 720 Output: Urine 1200 / 1200 1200 / 1200 Other: Date of Last Bowel Movement 04/11/18 04/11/18 # Bowel Movements 1 Narrative: NAD anicteric NECK: Supple, trachea midline. No JVD or lymphadenopathy. Regular rate and rhythm clear Breath sounds equal bilaterally. No accessory muscle use. Abdomen soft, non-tender, good bowel sounds MUSCULOSKELETAL: No cyanosis, or edema. right- big toe- posterior aspect- superficial dry ulcer, no erythema Right LE- erythema markedly improved= almost resolved Results - Labs CBC & Chem 7: 04/09/18 05:49 04/12/18 04:20 Laboratory Results - last 24 hr 04/09/18 04/11/18 04/11/18 15:59 08:19 09:00 APTT 43.6 H Creatinine Estimated GFR POC Glucose 163 H Blood Type Antibody Screen MTS Gel Crossmatch See Detail 04/11/18 04/11/18 04/12/18 16:34 20:22 04:14 APTT Creatinine Estimated GFR POC Glucose 208 H 305 H 138 H Blood Type Antibody Screen MTS Gel Crossmatch 04/12/18 04/12/18 04/12/18 04:20 04:20 04:20 APTT 21.1 L D Creatinine 0.87 Estimated GFR 88 L POC Glucose Blood Type O Positive Antibody Screen Negative MTS Gel Crossmatch See Detail Microbiology 04/06/18 18:40 Blood - Peripheral Aerobic Blood Culture - Final No growth in 5 days 04/06/18 18:40 Blood - Peripheral Anaerobic Blood Culture - Final No growth in 5 days 04/06/18 18:45 Blood - Peripheral Aerobic Blood Culture - Final No growth in 5 days 04/06/18 18:45 Blood - Peripheral Anaerobic Blood Culture - Final No growth in 5 days - Procedures 04/07- cardiac cath 1. Whymyinl-bb-jtnxsy disease of the proximal LAD and of the right coronary. 2. 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 2. Good left to right collaterals. 3. Low normal left ventricular systolic function with ejection fraction estimated at 50%. Assessment and Plan - Plan 67-year-old man with CAD- NSTEMI S/P cath with 2VD -Heparin drip, beta-clarissa, aspirin, nitroglycerin paste, statins -Cardiology ff -Dr. Bruno ff - plan for eventual CABG Friday Right lower extremity cellulitis - continues to improve dramatically Blood cultures negative so far d/w ID 04/09 - continue on antibiotics- Ancef + VAncomycin Right big toe- superficial dry ulcer- no signs of infection - advise OP ff up with a Podiatry for routine podiatry care Diabetes mellitus, type 2 - per last A1C- around 9 as OP and 3 months before that was 11 about 6 months - here with our diet- good readings - continue Sliding scale insulin. - All hyperglycemic agents on hold- as OP was on Metformin, glipizide and Januvia- - Monitor blood glucose- - d/w them goals - since surgery not till Friday - =started levemer 8 units bid 04/11- BS improved - reviewed diet- change to cardia/diabetic diet Hypertension- some elevated readings - on coreg, - reviewed meds- Lisinopril 20 mg ordered 04/[address] Juan - but has been on hold since 04/09- per pharmacy ordered held by [facility] - will restart Lisinopril at 10 mg daily today and monitor - ff BMP JESUS- resolved - good urine output - good po intake - Heplock. monitor BMP DVT prophylaxis: Heparin- off for surgery
[2018-04-12] MEDS ORDERED: Lisinopril 10 MG Tablet PO SCH (09:00)
[2018-04-12] MEDS: Insulin Detemir Inj 1,000 UNIT/10 ML Vial SQ SCH ×2 (09:39→21:59)
[2018-04-12] MEDS: Lisinopril 10 MG Tablet PO SCH (09:39)
[2018-04-13] MEDS: ceFAZolin 2 GM Premix Inj 2 GM/50 ML PIGGYBACK IV.SIG SCH ×3 (04:28→20:32)
[2018-04-13] MEDS: Vancomycin Inj 1,500 MG in Sodium Chlor 0.9% Inj 500 ML IV.SIG SCH (04:50)
[2018-04-13] MEDS: Insulin NovoLOG Aspart Correctional Sugar Inj SQ SCH ×3 (05:03→15:55)
[2018-04-13] MEDS: Heparin Drip 25,000 UNIT/250 ML BAG IV.CONT PRN (05:49)
[2018-04-13] MEDS ORDERED: Chlorhexidine Gluconate 2% 1 Pack (2 Cloths) TOPICAL ONE (07:00)
[2018-04-13] MEDS ORDERED: Sodium Chlor 0.9% Inj 500 ML IV.CONT ONE (07:00)
--- NOTE | 2018-04-13 07:39 | P.PN ---
Subjective Interval history: no complains overnight looking forward to surgery this noon time Physical Exam Vital signs: Vital Signs 04/12/18 08:00 04/12/18 09:00 04/12/18 10:00 Temperature 98.9 F Pulse Rate 84 82 82 Respiratory Rate 18 Blood Pressure 156/83 H Pulse Oximetry 96 04/12/18 11:00 04/12/18 12:00 04/12/18 13:00 Temperature 98.6 F Pulse Rate 68 68 67 Respiratory Rate 18 Blood Pressure 158/75 H Pulse Oximetry 96 04/12/18 14:00 04/12/18 15:00 04/12/18 16:00 Temperature 98.5 F Pulse Rate 66 84 69 Respiratory Rate 16 Blood Pressure 144/77 H Pulse Oximetry 96 04/12/18 17:00 04/12/18 18:00 04/12/18 19:00 Temperature Pulse Rate 78 77 75 Respiratory Rate Blood Pressure Pulse Oximetry 04/12/18 20:00 04/12/18 21:00 04/12/18 22:00 Temperature 99 F Pulse Rate 70 70 68 Respiratory Rate 16 Blood Pressure 141/68 H Pulse Oximetry 97 04/12/18 23:00 04/13/18 00:00 04/13/18 01:00 Temperature 97.5 F L Pulse Rate 70 73 74 Respiratory Rate 18 Blood Pressure 161/76 H Pulse Oximetry 95 04/13/18 02:00 04/13/18 03:00 04/13/18 04:00 Temperature Pulse Rate 76 80 76 Respiratory Rate Blood Pressure Pulse Oximetry 04/13/18 05:00 04/13/18 06:00 04/13/18 07:00 Temperature Pulse Rate 70 72 73 Respiratory Rate Blood Pressure Pulse Oximetry Intake & Output 04/12/18 04/13/18 04/13/18 18:59 06:59 18:59 Intake Total 1795 / 1795 1355 / 1355 Output Total 1200 / 1200 950 / 950 Balance 595 / 595 405 / 405 Weight 130 kg Intake: IV 815 / 815 1115 / 1115 Heparin/D5W 25,000 U/250 mL 25, 250 / 250 250 / 250 000 unit In 250 ml @ Per Protocol IV.CONT TITRATE PRN Rx #:[id number] Vancomycin Inj 1,500 MG In NS 515 / 515 765 / 765 Inj 500 ML @ 257.5 mls/hr IV. SIG Q12H ANGIE Rx#:[id number] Ancef 2 GM Premix Inj 2 gm In 50 / 50 100 / 100 50 ml @ 100 mls/hr IV.SIG Q8H ANGIE Rx#:[id number] Oral 980 / 980 240 / 240 Output: Urine 1200 / 1200 950 / 950 Other: Date of Last Bowel Movement 04/11/18 Narrative: NAD, awake and alert ortiented x 3 anicteric NECK: Supple No JVD or lymphadenopathy. Regular rate and rhythm clear Breath sounds equal bilaterally. No accessory muscle use. Abdomen soft, non-tender, good bowel sounds MUSCULOSKELETAL: No cyanosis, or edema. right- big toe- posterior aspect- superficial dry ulcer, no erythema Right LE- erythema markedly improved= almost resolved Results - Labs CBC & Chem 7: 04/09/18 05:49 04/12/18 04:20 Laboratory Results - last 24 hr 04/12/18 04/12/18 04/12/18 04:20 08:06 09:33 APTT 47.4 H D POC Glucose 175 H Blood Type O Positive Antibody Screen Negative MTS Gel Crossmatch See Detail 04/12/18 04/12/18 04/12/18 11:50 13:07 16:40 APTT 46.5 H 48.1 H POC Glucose 252 H Blood Type Antibody Screen MTS Gel Crossmatch 04/12/18 04/12/18 04/13/18 17:02 21:32 05:03 APTT POC Glucose 142 H 219 H 148 H Blood Type Antibody Screen MTS Gel Crossmatch - Procedures 04/07- cardiac cath 1. Vpbjkplv-fy-fykmxz disease of the proximal LAD and of the right coronary. 2. 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 2. Good left to right collaterals. 3. Low normal left ventricular systolic function with ejection fraction estimated at 50%. Assessment and Plan - Plan 67-year-old man with CAD- NSTEMI S/P cath with 2VD Hypertension -Heparin drip, Coreg 3.125 mg bid , aspirin, nitroglycerin paste, statins, Lisinopril 10 mg daily- adjust dose post op -Cardiology ff -Dr. Bruno ff -CABG today Right lower extremity cellulitis - continues to improve dramatically Blood cultures negative d/w ID 04/09 - continue on antibiotics- Ancef + VAncomycin Right big toe, posterio aspect - superficial dry ulcer- no signs of infection - advise OP ff up with a Podiatry for routine podiatry care Diabetes mellitus, type 2 - per last A1C- around 9 as OP and 3 months before that was 11 about 6 months - here with our diet- good readings - continue Sliding scale insulin. - All hyperglycemic agents on hold- as OP was on Metformin, glipizide and Januvia- - Monitor blood glucose- - d/w them goals - On levemer 8 units bid 04/11- BS improved - reviewed diet- change to cardia/diabetic diet JESUS- resolved - good urine output - good po intake - Heplock. monitor BMP DVT prophylaxis: Heparin- off for surgery
[2018-04-13] MEDS: Insulin Detemir Inj 1,000 UNIT/10 ML Vial SQ SCH (08:23)
[2018-04-13] MEDS: Lisinopril 10 MG Tablet PO SCH (08:23)
[2018-04-13] MEDS ORDERED: Heparin - SQ 10,000 UNITS/ML Vial ONE (10:25)
[2018-04-13] MEDS ORDERED: Albumin Human 25% Inj 50 ML IV.SIG ONE (10:52)
[2018-04-13] MEDS ORDERED: Cardioplegic Irr Soln 2,000 ML IRRIGATION ONE (10:52)
[2018-04-13] MEDS ORDERED: Potassium Chloride Inj 40 MEQ/20 ML Vial ONE (10:53)
[2018-04-13] MEDS ORDERED: Heparin 10,000 UNITS/10 ML Vial (for IV use) ONE (10:53)
[2018-04-13] MEDS ORDERED: Calcium Chloride Inj 1 GM/10 ML Syringe ONE (10:54)
[2018-04-13] MEDS ORDERED: Sodium Bicarbonate 8.4% Inj 50 MEQ/50 ML Syringe ONE (10:54)
--- NOTE | 2018-04-13 11:32 | P.PNCV ---
- Note Subjective/Hospital Course: A 67-year-old male with history of coronary artery disease, presented to the emergency room with chest pain, dyspnea with minimal to mild exertion. He had a near syncopal episode at home when he was trying to get up to the bathroom. He also has been complaining of some swelling and erythema and pain to his right lower extremity. Denied having any injury or any kind of insect bites. His troponins were elevated. He underwent cardiac catheterization, which showed ejection fraction of 50%, mild to moderate disease of the proximal LAD and the right coronary artery. The right coronary artery was diffusely diseased, basically totally occluded at the ostium. There were left to right collaterals. Left main disease of 50%, IVUS was completed for the left main, which showed 60%. We were consulted to evaluate for coronary artery bypass grafting. PAST MEDICAL HISTORY: Includes coronary artery disease, prior stenting 2005 and then also another cardiac catheterization in 2008 where he underwent 2 stents to the proximal and mid RCA, diabetes mellitus, hypertension, sleep apnea. He had a TIA in 2005, hyperlipidemia. 04/09 pt seen and evaluated by KIARRA campbell for surgery , not to use RLE for harvesting continue IV antibiotics for now right leg has been improving daily carotid US unremarkable lower ext doppler, no DVT 04/10 waiting for surgery 04/13 for surgery today right leg cellulitis greatly improved Objective: Vital Signs - 24 hr 04/12/18 12:00 04/12/18 13:00 04/12/18 14:00 Temperature 98.6 F Pulse Rate 68 67 66 Respiratory Rate 18 Blood Pressure 158/75 H Pulse Oximetry 96 04/12/18 15:00 04/12/18 16:00 04/12/18 17:00 Temperature 98.5 F Pulse Rate 84 69 78 Respiratory Rate 16 Blood Pressure 144/77 H Pulse Oximetry 96 04/12/18 18:00 04/12/18 19:00 04/12/18 20:00 Temperature 99 F Pulse Rate 77 75 70 Respiratory Rate 16 Blood Pressure 141/68 H Pulse Oximetry 97 04/12/18 21:00 04/12/18 22:00 04/12/18 23:00 Temperature Pulse Rate 70 68 70 Respiratory Rate Blood Pressure Pulse Oximetry 04/13/18 00:00 04/13/18 01:00 04/13/18 02:00 Temperature 97.5 F L Pulse Rate 73 74 76 Respiratory Rate 18 Blood Pressure 161/76 H Pulse Oximetry 95 04/13/18 03:00 04/13/18 04:00 04/13/18 05:00 Temperature Pulse Rate 80 76 70 Respiratory Rate Blood Pressure Pulse Oximetry 04/13/18 06:00 04/13/18 07:00 04/13/18 08:00 Temperature 98.4 F Pulse Rate 72 73 79 Respiratory Rate 18 Blood Pressure 157/78 H Pulse Oximetry 95 GENERAL: SKIN: Warm and dry. right leg cellulitis improved HEAD: Normocephalic. EYES: No scleral icterus. No injection or drainage. NECK: Supple, trachea midline. No JVD or lymphadenopathy. CARDIOVASCULAR: Regular rate and rhythm without murmurs, gallops, or rubs. RESPIRATORY: Breath sounds equal bilaterally. No accessory muscle use. GASTROINTESTINAL: Abdomen soft, non-tender, nondistended. MUSCULOSKELETAL: No cyanosis, or edema. BACK: Nontender without obvious deformity. No CVA tenderness. Labs: Laboratory Results - last 12 hr 04/12/18 04/13/18 04/13/18 04:20 05:03 07:27 APTT 55.6 H POC Glucose 148 H Blood Type O Positive Antibody Screen Negative MTS Gel Crossmatch See Detail 04/13/18 08:23 APTT POC Glucose 148 H Blood Type Antibody Screen MTS Gel Crossmatch Result Diagrams: 04/09/18 05:49 04/12/18 04:20 Telemetry: NSR - Plan (2) Cellulitis Plan: on antibiotics/ improved (3) Coronary artery disease Plan: for surgery today (4) Hypertension (2) Cellulitis Qualifiers: Site of cellulitis: extremity Site of cellulitis of extremity: lower extremity Laterality: left Qualified Code(s): L03.116 - Cellulitis of left lower limb (3) Coronary artery disease Qualifiers: Coronary Disease-Associated Artery/Lesion type: [place] artery [place] vs. transplanted heart: [place] heart Associated angina: with unstable angina Qualified Code(s): I25.110 - Atherosclerotic heart disease of [place] coronary artery with unstable angina pectoris (4) Hypertension Qualifiers: Hypertension type: essential hypertension Qualified Code(s): I10 - Essential (primary) hypertension
--- NOTE | 2018-04-13 11:42 | P.DCO ---
- Diagnosis (1) S/P CABG (coronary artery bypass graft) Status: Acute (2) Acute non-ST elevation myocardial infarction (NSTEMI) Status: Acute (3) Cellulitis Status: Acute (4) Coronary artery disease Status: Acute (5) Hypertension Status: Chronic (6) Dyslipidemia Status: Chronic - Home Health Nursing Order: Medical education, Signs/symptoms of disease process, Diabetic education , Wound care and dressing changes, Nursing assessment with vital signs Instructions: Heart and Vascular Surgery patients *Special attention to sternal dressing Mandatory frequency Assess and evaluation, 4 days in a row The next week 3X week 2 times a week for 4 weeks 1 time a week for 5 weeks Schedule Heart and Vascular patients for full 60 day certification period Initial visit Review Open Heart Surgery Discharge Instructions (Sternal precautions, Activity, Elastic hose, Incision care, Driving, Incentive spirometry, Smoking, [place], Work and other) Need Betadine to paint incision Medication reconciliation Importance of follow up care/ check on appointments Make calendar record temperature daily When to call [facility] at Home nurse, review instructions, phone list Incentive Spirometry, demonstration Visit 1- Begin discharge instruction for patient family and/ or caregiver using teach back method- Signs and symptoms of infection Disease characteristics Medicines and side effects Foods and nutrition/ appetite Infection control/ hand washing/ hygiene Visit 2- Continue teaching Discharge instructions- include additional information on smoking cessation , sternal dressing (sternal vac) Visit 3- Continue teaching- Cough and deep breathing, incision monitoring. Choose my plate Visit 4- Continue teaching- Discuss limitations Discuss how they are feeling Discuss progress toward goals Remaining visits- continue teaching and monitoring For any questions please call : Friday 8am-5pm Heart & Vascular Surgery Office ( Dr. Villanueva & Dr. Bruno), After Hours / Nights (5pm -8am) Weekends and Holidays Please call [facility] ([facility] Charge Nurse PREVENA Single Use Negative Wound Therapy System Caregiver Instruction Sheet 1. A Prevena dressing system was applied to the chest incision during surgery , to promote wound healing. It works via a suction device (negative pressure wound therapy) to remove low to moderate levels of exudate (drainage) and infectious materials. We recommend that the device stay in place for up to seven days, from day of surgery. 2. Day of Surgery___04/13/18 Day of Removal ___04/20/18 3. The dressing should only be removed by a health resident care director. Please arrange removal of device to coincide with Home Health visit and or with Nursing staff at Rehab 4. If skin reddening or irritation of skin occurs, or excessive drainage, please notify the Cardiovascular Surgeons office at [phone]. 5. Light showering is permissible; however the pump should be disconnected and placed in safe location, where it will not get wet. The dressing should not be exposed to direct spray or submerged in water. No bath tub / shower only. Ensure the end of the tubing attached to the dressing is facing down so that water does not enter the top of the tube. 6. To remove Prevena dressing: press purple button to turn off device / remove the suction. Then disconnect the tubing from the pump. The fixation strips should be stretched away from the skin and the dressing lifted at one corner and peeled back until it has been fully removed. 7. After removal, it is ok to shower daily using liquid dial soap and clean wash cloth, rinse and pat dry, and leave incision open to air dry. For any concerns regarding Prevena dressing, and or wounds, please contact Airam Harvey, patient navigator at [phone] or notify the Cardiovascular Surgeons office at [phone]. Incentive spirometry Q1 hr x 10, while awake, also use acapella device hourly whole awake Sternal Breast Bone Precautions: NO pushing or pulling, ( pt must use sternal pillow to support chest with all activities and with coughing ( takes up to 3 months breast bone to heal ) Daily incision care: ok to shower daily, no tub bath. Wash all incisions with liquid dial soap, clean wash cloth to each site, rinse and pat dry. Observe for any signs of infection, such as drainage which is dark yellow, [place], green or foul smelling. Immediately report to the surgeon any drainage from the chest incision, or legs, and for any abnormal drainage from the chest tube sites. Notify surgeon if any temp >101.5 degrees F. When specialty dressing removed/ or if you do not have one, continue to shower daily as above, then rinse and pat incision dry and paint with betadine daily x 5 days. Allow steri strips to fall off if you have any. Avoid lotions, creams, salves, oils, etc. for the first month Please see attached forms for additional instructions regarding post Open Heart specialty wound vacuum dressings. PERCY or Prevena , Dressing to be removed by Nursing staff on __04/20/[address] Bruno patients , please obtain CBC, BMP, PA & Lat CXR in 2 weeks, results to Dr. Bruno ( prescription will be given) ( ) (Tele: [phone]) , F/U appointment: as per DC instructions: PCP in 2 weeks, CV surgeon 2 weeks, Print Support Specialist 3-4 weeks For any questions regarding incisions/ dressing / meds / post op care or above Symptoms, Friday 8am-5pm Heart & Vascular Surgery Office ( Dr. Villanueva & Dr. Bruno), After Hours / Nights (5pm -8am) Weekends and Holidays Please call [facility] Charge Nurse - Case Management Consult Case Management Consult-Home Health: Yes - Certification I have seen patient Kostas Higgins on 04/13/18. My clinical findings support the need for the requested home health care services because: Deconditioned with increased weakness I certify that my clinical findings support that this patient is homebound because: Post-op weakness (3) Cellulitis Qualifiers: Site of cellulitis: extremity Site of cellulitis of extremity: lower extremity Laterality: right Qualified Code(s): L03.115 - Cellulitis of right lower limb (4) Coronary artery disease Qualifiers: Coronary Disease-Associated Artery/Lesion type: [place] artery [place] vs. transplanted heart: [place] heart Associated angina: with unstable angina Qualified Code(s): I25.110 - Atherosclerotic heart disease of [place] coronary artery with unstable angina pectoris (5) Hypertension Qualifiers: Hypertension type: essential hypertension Qualified Code(s): I10 - Essential (primary) hypertension
[2018-04-13] MEDS ORDERED: MethylPREDNISolone Sod Succinate Inj 125 MG/2 ML Vial ONE (12:16)
[2018-04-13] MEDS ORDERED: Protamine Sulfate Inj 50 MG/5 ML Vial ONE (14:34)
[2018-04-13] MEDS ORDERED: Dexmedetomidine Inj 200 MCG in Sodium Chlor 0.9% Inj 48 ML IV.CONT PRN (15:26)
[2018-04-13] MEDS ORDERED: Metoprolol Inj 5 MG/5 ML Vial IV.PUSH PRN (15:26)
[2018-04-13] MEDS ORDERED: Post-op Orders (for Pharmacy) OTHER STA (15:26)
[2018-04-13] MEDS ORDERED: RESP: Racemic Epinephrine 2.25% 0.5 ML Neb NEB PRN (15:26)
[2018-04-13] MEDS ORDERED: Dextrose 50% in Water 50 ML Vial IV.PUSH PRN (15:26)
[2018-04-13] MEDS ORDERED: Calcium Chloride Inj 1 GM in Sodium Chlor 0.9% Inj 100 ML IV.SIG PRN (15:26)
[2018-04-13] MEDS ORDERED: Magnesium Sulfate Inj 2 GM in Sodium Chlor 0.9% Inj 96 ML IV.SIG PRN ×4 (15:26)
[2018-04-13] MEDS ORDERED: Albumin Human 5% Inj 250 ML IV.SIG PRN (15:26)
[2018-04-13] MEDS ORDERED: Potassium Chlor 20 mEq Premix 20 MEQ/100 ML PIGGYBACK IV.SIG PRN ×2 (15:26)
[2018-04-13] MEDS ORDERED: Calcium Chloride Inj 1 GM/10 ML Syringe IV.PUSH PRN (15:26)
--- NOTE | 2018-04-13 15:33 | P.OP ---
- Preoperative Diagnosis (1) Acute non-ST elevation myocardial infarction (NSTEMI) (2) Coronary artery disease Postoperative Diagnosis: same Date of procedure: 04/13/18 Procedure: CABG x 3 BRIAN to LAd - good SVG to RI - good SVG to PDA - good EVH Anesthesia: DELON Surgeon: Larissa Bruno MD Strapping Machine Tender: Barbie Anderson Pathology: none sent Operation and Findings: The risks, benefits, complications, treatment options, and expected outcomes were discussed with the patient. The possibilities of reaction to medication, pulmonary aspiration, perforation of viscus, bleeding, recurrent infection, the need for additional procedures, failure to diagnose a condition, and creating a complication requiring transfusion or operation were discussed with the patient. The patient concurred with the proposed plan, giving informed consent. The site of surgery properly noted/marked. The patient was taken to Operating Room, identified as Kostas Higgins and the procedure verified as CABG, EVH. A Time Out was held and the above information confirmed. Standard monitoring lines and Spring catheter were placed. General anesthesia was induced. The patient was prepped and draped in a sterile fashion. A median sternotomy was performed and electrocautery was used to obtain hemostasis. The left internal mammary artery was procured as a pedicle from the 7th rib to the 1st rib in the usual manner. Simultaneously left greater saphenous vein was procured from the left leg using a minimally invasive endoscopic technique. The vein was prepared for anastomosis and the leg wound was irrigated and closed in 2 layers. The pericardium was opened and a pericardial sling was created using interrupted 0 silk sutures. The patient was heparinized for cardiopulmonary bypass and the distal mammary pedicle was instrumented for anastomosis. The heart was instrumented for cardiopulmonary bypass in the usual manner. Antegrade blood cardioplegia was employed. The patient was placed on cardiopulmonary bypass. An aortic cross-clamp was applied and the heart was arrested using cold blood cardioplegia. Antegrade cardioplegia was administered after he each anastomosis. After adequate arrest, the distal right coronary circulation was investigated and the PDA was opened with a [place] blade and found to be a 1.5 millimeter good target. Saphenous vein was approximated to the PDA artery using a running 7 0 Prolene suture. The graft was measured for length and orientation and the proximal anastomosis was constructed to the ascending aorta using a running 5 0 Prolene suture after creating an aortotomy with a 5 millimeter punch. The ramus intermedius artery was then opened with a [place] blade and found to be a 1.5 millimeter good target. Saphenous vein was approximated to the RI artery using a running 7 0 Prolene suture. The graft was measured for length and orientation and was suspended from the pericardium. The distal LAD was opened with a [place] blade and found to be a 1.5 millimeter good target. The left internal mammary artery was approximated to the LAD using a running 7 0 Prolene suture. The pedicle was attached to the epicardium using interrupted 5 0 silk suture. The patient was systemically rewarmed and received a hotshot dose of warm blood cardioplegia. The aorta was vented and the proximal anastomosis to the RI graft was accomplished using a running 5 0 Prolene suture after creating an aortotomy was a 5 millimeter punch. The cross-clamp was removed and all proximal and distal anastomoses were examined for hemostasis. The patient was weaned from cardiopulmonary bypass. Protamine was given. There was no adverse reaction. Decannulation was carried out without incident. Wound was checked for hemostasis which was obtained using electrocautery. A 36 [place] mediastinal and 32 [place] left pleural chest tubes were placed and secured to the skin with 0 silk suture. The sternum was closed with stainless steel wire. The fascia was closed with 1. PDS. The subcutaneous tissue was closed using a running 2-0 Vicryl suture. The skin was closed with 4-0 Monocryl. Sterile dressings were placed. At the end of the operation, all sponge, instruments, and needle counts were correct. The patient was transferred to the CVICU in stable condition. Findings: good distal targets XC: 40 min CPB: 58 min Drains: mediastinal x 1 pleural x 1 Complications: none
[2018-04-13] MEDS ORDERED: fentaNYL Citrate Inj 250 MCG/5 ML Ampul ONE (16:25)
--- NOTE | 2018-04-13 16:35 | XR ---
EXAM DATE: 04/13/2018 4:31 PM EST AGE/SEX: 67 years / Male INDICATIONS: Post CABG CLINICAL DATA: This is the patient's subsequent encounter. Patient reports that signs and symptoms h ave been present for 1 week and indicates a pain score of Nonresponsive. MEDICAL/SURGICAL HISTORY: . Diabetes. Hypercholesterolemia. Hypertension. CAD. . Coronary art bridgette stent. COMPARISON: [facility], CHEST 1V SINGLE AP, 04/06/2018. . FINDINGS: ETT at the level of the clavicles. Left subclavian central line in the central SVC. Mediastinal drain s and left-sided chest tube in place. No significant pneumothorax with mild bibasilar airspace diseas e. Cardiomediastinal contours are grossly stable. Median sternotomy wires in place. Remainder of the exam is unchanged. CONCLUSION: 1. Expected postoperative features of CABG with tubes and lines, as above. 2. No pneumothorax. 3. Mild bibasilar airspace disease, presumably atelectasis. Electronically signed by: Dawson Bazzi MD 04/13/2018 4:34 PM EST
[2018-04-13] MEDS: Insulin Regular (For Infusion) 100 UNIT in Sodium Chlor 0.9% Inj 99 ML IV.CONT PRN (16:39)
[2018-04-13] MEDS: Potassium Chlor 20 mEq Premix 20 MEQ/100 ML PIGGYBACK IV.SIG PRN ×2 (16:39→22:21)
[2018-04-13] MEDS: Clevidipine Inj 25 MG/50 ML VIAL IV.CONT PRN ×2 (18:15→22:23)
[2018-04-13] MEDS: fentaNYL Citrate Inj 100 MCG/2 ML Ampul IV.PUSH PRN ×2 (18:24→20:31)
[2018-04-13] MEDS: Amiodarone 200 MG Tablet PO SCH (22:18)
[2018-04-14] MEDS: Potassium Chlor 20 mEq Premix 20 MEQ/100 ML PIGGYBACK IV.SIG PRN (01:18)
[2018-04-14] MEDS: ceFAZolin 2 GM Premix Inj 2 GM/50 ML PIGGYBACK IV.SIG SCH ×3 (03:13→19:00)
[2018-04-14] MEDS: Clevidipine Inj 25 MG/50 ML VIAL IV.CONT PRN (03:57)
[2018-04-14] MEDS: Insulin Regular (For Infusion) 100 UNIT in Sodium Chlor 0.9% Inj 99 ML IV.CONT PRN (04:18)
[2018-04-14 04:24] LABS: Hemoglobin 12.5 gm/dL (13.0-17.0); Mean Corpuscular HGB Conc 35.7 % (32.0-36.0); Mean Corpuscular Hemoglobin 30.8 pg (27.0-34.0); Mean Corpuscular Volume 86.5 fL (80.0-100.0); Mean Platelet Volume 7.6 fL (7.0-11.0); Platelet Count 391 th/mm3 (150-450); Red Blood Count 4.05 mil/mm3 (4.50-5.90); Red Cell Distribution Width 13.3 % (11.6-17.2); White Blood Count 22.4 th/mm3 (4.0-11.0)
[2018-04-14 04:52] LABS: Anion Gap 6 meq/L (5-15); Blood Urea Nitrogen 11 mg/dL (7-18); Calcium 8.6 mg/dL (8.5-10.1); Carbon Dioxide 26.5 meq/L (21.0-32.0); Chloride 105 meq/L (98-107); Glomerular Filtration Rate Greater Than 89 mL/min (>89); Glucose,Random 116 mg/dL (74-106); Magnesium 2.3 mg/dL (1.5-2.5); Potassium 4.2 meq/L (3.5-5.1); Sodium 137 meq/L (136-145)
--- NOTE | 2018-04-14 06:08 | XR ---
EXAM DATE: 04/14/2018 5:59 AM EST AGE/SEX: 67 years / Male INDICATIONS: Shortness of breath. CLINICAL DATA: This is the patient's subsequent encounter. Patient reports that signs and symptoms h ave been present for 1 week and indicates a pain score of 0/10. MEDICAL/SURGICAL HISTORY: Hypertension. Diabetes mellitus type II. Stroke. Coronary artery d isease. Coronary artery stent. COMPARISON: [facility], CHEST 1V SINGLE AP, 04/13/2018. . FINDINGS: 2 portable frontal views of the chest show 2 thoracostomy tubes. Both subxiphoid in nature. No pneumo thorax seen. Left subclavian central line. Heart is at the upper limits of normal in terms of size. L ungs are clear. No effusions or infiltrates. Median sternotomy wires. CONCLUSION: No pneumothorax or infiltrate. Electronically signed by: Brian Ag MD 04/14/2018 6:06 AM EST
[2018-04-14] MEDS: Amiodarone 200 MG Tablet PO SCH ×3 (06:10→21:23)
--- NOTE | 2018-04-14 08:19 | ECG ---
Date Performed: 04/14/2018 Time Performed: 03:07:02 PTAGE: 67 years EKG: Sinus rhythm with probable limb lead reversal. I would repeat EKG. PREVIOUS TRACING : 04/07/2018 06.30 DOCTOR: Wilfrid Avila Interpretating Date/Time 04/14/2018 08:18:34
[2018-04-14] MEDS: Lisinopril 10 MG Tablet PO SCH (08:50)
[2018-04-14] MEDS ORDERED: Insulin Detemir Inj 1,000 UNIT/10 ML Vial SQ ONE (09:33)
[2018-04-14] MEDS ORDERED: Sod Phosphate/Sod Biphosphate (Adult) Enema 133 ML Bottle RECTAL PRN (09:33)
[2018-04-14] MEDS ORDERED: Dextrose 50% in Water 50 ML Vial IV.PUSH PRN (09:33)
[2018-04-14] MEDS ORDERED: Bisacodyl 10 MG Supp RECTAL PRN (09:33)
[2018-04-14] MEDS: Insulin NovoLOG Aspart Correctional Sugar Inj SQ SCH ×4 (10:20→23:18)
--- NOTE | 2018-04-14 14:59 | P.PNCV ---
- Note Subjective/Hospital Course: A 67-year-old male with history of coronary artery disease, presented to the emergency room with chest pain, dyspnea with minimal to mild exertion. He had a near syncopal episode at home when he was trying to get up to the bathroom. He also has been complaining of some swelling and erythema and pain to his right lower extremity. Denied having any injury or any kind of insect bites. His troponins were elevated. He underwent cardiac catheterization, which showed ejection fraction of 50%, mild to moderate disease of the proximal LAD and the right coronary artery. The right coronary artery was diffusely diseased, basically totally occluded at the ostium. There were left to right collaterals. Left main disease of 50%, IVUS was completed for the left main, which showed 60%. We were consulted to evaluate for coronary artery bypass grafting. PAST MEDICAL HISTORY: Includes coronary artery disease, prior stenting 2005 and then also another cardiac catheterization in 2008 where he underwent 2 stents to the proximal and mid RCA, diabetes mellitus, hypertension, sleep apnea. He had a TIA in 2005, hyperlipidemia. 04/09 pt seen and evaluated by ID shannan for surgery , not to use RLE for harvesting continue IV antibiotics for now right leg has been improving daily carotid US unremarkable lower ext doppler, no DVT 04/10 waiting for surgery 04/13 for surgery today right leg cellulitis greatly improved surgery same Date of procedure: 04/13/18 Procedure: CABG x 3 BRIAN to LAd - good SVG to RI - good SVG to PDA - good EVH extubated after surgery 2000cc crystalloid, 500cc cell saver 04/14 up in chair doing well right leg improving daily continue ABX for now add low dose BB levemir to wean insulin gtt transfer to stepdown Objective: Vital Signs - 24 hr 04/13/18 16:10 04/13/18 16:20 04/13/18 17:05 Temperature 98.6 F Pulse Rate Respiratory Rate 14 Blood Pressure Pulse Oximetry 94 L 95 04/13/18 17:12 04/13/18 19:00 04/13/18 21:01 Temperature 97.8 F Pulse Rate 90 94 H Respiratory Rate 18 16 16 Blood Pressure 119/75 Pulse Oximetry 98 04/13/18 22:05 04/13/18 23:00 04/14/18 03:00 Temperature 98.4 F Pulse Rate 114 H 101 H Respiratory Rate 18 Blood Pressure 144/74 H Pulse Oximetry 98 97 04/14/18 03:31 04/14/18 03:56 04/14/18 04:57 Temperature 98.7 F Pulse Rate 101 H 101 H Respiratory Rate 18 18 18 Blood Pressure 135/80 Pulse Oximetry 97 04/14/18 07:45 04/14/18 10:30 04/14/18 11:00 Temperature 98.2 F Pulse Rate 91 H 76 Respiratory Rate 18 18 Blood Pressure 123/76 Pulse Oximetry 98 97 96 04/14/18 11:50 04/14/18 12:00 Temperature 98.4 F 98.4 F Pulse Rate 89 89 Respiratory Rate 17 17 Blood Pressure 145/86 H 145/86 H Pulse Oximetry 98 98 GENERAL: A&O x 3 SKIN: Warm and dry. prevena dressing to chest HEAD: Normocephalic. EYES: No scleral icterus. No injection or drainage. NECK: Supple, trachea midline. No JVD or lymphadenopathy. CARDIOVASCULAR: Regular rate and rhythm without murmurs, gallops, or rubs. RESPIRATORY: Breath sounds equal bilaterally. No accessory muscle use. chest tube to wall suction, no air leak / drained 170cc/ 12 hrs / no air leak GASTROINTESTINAL: Abdomen soft, non-tender, nondistended. MUSCULOSKELETAL: No cyanosis, or edema. BACK: Nontender without obvious deformity. No CVA tenderness. Labs: Laboratory Results - last 12 hr 04/14/18 04/14/18 04/14/18 03:50 03:50 03:54 WBC 22.4 H RBC 4.05 L Hgb 12.5 L Hct 35.0 L MCV 86.5 MCH 30.8 MCHC 35.7 RDW 13.3 Plt Count 391 D MPV 7.6 Sodium 137 Potassium 4.2 Chloride 105 Carbon Dioxide 26.5 Anion Gap 6 BUN 11 Creatinine 0.84 Estimated GFR Greater than 89 POC Glucose 116 H Random Glucose 116 H Calcium 8.6 Magnesium 2.3 04/14/18 04/14/18 04/14/18 06:04 07:43 09:26 WBC RBC Hgb Hct MCV MCH MCHC RDW Plt Count MPV Sodium Potassium Chloride Carbon Dioxide Anion Gap BUN Creatinine Estimated GFR POC Glucose 114 H 111 H 140 H Random Glucose Calcium Magnesium 04/14/18 14:32 WBC RBC Hgb Hct MCV MCH MCHC RDW Plt Count MPV Sodium Potassium Chloride Carbon Dioxide Anion Gap BUN Creatinine Estimated GFR POC Glucose 181 H Random Glucose Calcium Magnesium Result Diagrams: 04/14/18 03:50 04/14/18 03:50 Telemetry: NSR - Plan (1) S/P CABG (coronary artery bypass graft) Plan: RESP: pulm nebs, ezpap acapella CV: BB , gentle diuresis GI: protonix, ENDO: weaned off insulin gtt, re-add home meds in am , Bid levemir Line s CVC line day 2 CM to eval for HHC (3) Cellulitis Plan: on antibiotics/ improved (4) Coronary artery disease Plan: for surgery today (5) Hypertension (3) Cellulitis Qualifiers: Site of cellulitis: extremity Site of cellulitis of extremity: lower extremity Laterality: right Qualified Code(s): L03.115 - Cellulitis of right lower limb (4) Coronary artery disease Qualifiers: Coronary Disease-Associated Artery/Lesion type: [place] artery [place] vs. transplanted heart: [place] heart Associated angina: with unstable angina Qualified Code(s): I25.110 - Atherosclerotic heart disease of [place] coronary artery with unstable angina pectoris (5) Hypertension Qualifiers: Hypertension type: essential hypertension Qualified Code(s): I10 - Essential (primary) hypertension
--- NOTE | 2018-04-14 17:47 | P.PN ---
Subjective Interval history: Follow-up CAD status post CABG x3 vessels. Seen in CVICU. He is doing well on room air. He has been ambulating the hallway. Physical Exam Vital signs: Vital Signs 04/13/18 19:00 04/13/18 21:01 04/13/18 22:05 Temperature 97.8 F Pulse Rate 94 H Respiratory Rate 16 16 Blood Pressure 119/75 Pulse Oximetry 98 98 04/13/18 23:00 04/14/18 03:00 04/14/18 03:31 Temperature 98.4 F 98.7 F Pulse Rate 114 H 101 H 101 H Respiratory Rate 18 18 Blood Pressure 144/74 H 135/80 Pulse Oximetry 97 97 04/14/18 03:56 04/14/18 04:57 04/14/18 07:45 Temperature 98.2 F Pulse Rate 101 H 91 H Respiratory Rate 18 18 18 Blood Pressure 123/76 Pulse Oximetry 98 04/14/18 10:30 04/14/18 11:00 04/14/18 11:50 Temperature 98.4 F Pulse Rate 76 89 Respiratory Rate 18 17 Blood Pressure 145/86 H Pulse Oximetry 97 96 98 04/14/18 12:00 04/14/18 14:50 04/14/18 15:00 Temperature 98.4 F 98.6 F Pulse Rate 89 93 H 99 H Respiratory Rate 17 18 18 Blood Pressure 145/86 H 135/75 Pulse Oximetry 98 96 Intake & Output 04/13/18 04/14/18 04/14/18 18:59 06:59 18:59 Intake Total 5665 / 5665 879.5 / 879.5 Output Total 2090 / 2090 2565 / 2565 Balance 3575 / 3575 -1685.5 / -1685.5 Weight 133 kg Intake: IV 3165 / 3165 779.5 / 779.5 Mannitol Inj 100 ML @ 0 mls/hr 100 / 100 .ROUTE .STK-MED ONE Rx#: [id number] Plegisol Irrigating Soln 2,000 2000 / 2000 ML @ 0 mls/hr IRRIGATION .STK- MED ONE Rx#:[id number] Cleviprex Inj 25 mg In 50 ml @ 89.5 / 89.5 1 MG/HR 2 mls/hr IV.CONT TITRATE PRN Rx#:[id number] Heparin/D5W 25,000 U/250 mL 25, 250 / 250 000 unit In 250 ml @ Per Protocol IV.CONT TITRATE PRN Rx #:[id number] NovoLIN R (IV Infusion) 100 90 / 90 UNIT In NS Inj 99 ML @ 3 UNITS/ HR 3 mls/hr IV.CONT TITRATE PRN Rx#:[id number] Ofirmev Inj 1,000 mg In 100 ml 100 / 100 200 / 200 @ 400 mls/hr IV.SIG Q6H ANGIE Rx# :[id number] Flexbumin 25% Inj 50 ML @ 0 mls 50 / 50 /hr IV.SIG .STK-MED ONE Rx#: [id number] Calcium Chloride Inj 1 GM In NS 100 / 100 Inj 100 ML @ 100 mls/hr IV.SIG PRN PRN Rx#:[id number] KCl 20 mEq Premix Inj 20 meq In 100 / 100 200 / 200 100 ml @ 50 mls/hr IV.SIG PRN PRN Rx#:[id number] Vancomycin Inj 1,500 MG In NS 515 / 515 Inj 500 ML @ 257.5 mls/hr IV. SIG Q12H ANGIE Rx#:[id number] Ancef 2 GM Premix Inj 2 gm In 50 / 50 100 / 100 50 ml @ 100 mls/hr IV.SIG Q8H ANGIE Rx#:[id number] Oral 100 / 100 Anesthesia Amount 2000 / 2000 Cell Saver Amount 500 / 500 Output: Estimated Blood Loss 1000 / 1000 Urine Amount (Catheter) 1000 / 1000 2395 / 2395 Indwelling Temp Sensing 1000 / 1000 2395 / 2395 Catheter Chest Tube Drainage 90 / 90 170 / 170 Pleural/Mediastinal 90 / 90 170 / 170 Other: Date of Last Bowel Movement 04/12/18 Narrative: NAD, awake and alert ortiented x 3 anicteric Provena dressing. Chest tube in Regular rate and rhythm clear Breath sounds equal bilaterally. No accessory muscle use. Abdomen soft, non-tender, good bowel sounds MUSCULOSKELETAL: No cyanosis, or edema. Dressing left lower extreme right- big toe- posterior aspect- superficial dry ulcer, no erythema Right LE- erythema markedly improved= almost resolved - Urinary Catheter Management Indwelling Temp Sensing Catheter Cath placed during this visit: yes, but has since been removed by the nurse Reason for continuing: Continue criteria not met Insertion date: 04/13/18 Insertion time: 11:45 Removal date: 04/14/18 Removal time: 05:30 Results - Labs CBC & Chem 7: 04/14/18 03:50 04/14/18 03:50 Laboratory Results - last 24 hr 04/12/18 04/13/18 04/13/18 04:20 18:00 19:30 WBC RBC Hgb Hct MCV MCH MCHC RDW Plt Count MPV Sodium Potassium Chloride Carbon Dioxide Anion Gap BUN Creatinine Estimated GFR POC Glucose 122 H 108 Random Glucose Calcium Magnesium Blood Type O Positive Antibody Screen Negative MTS Gel Crossmatch See Detail 04/13/18 04/13/18 04/13/18 21:11 22:01 23:23 WBC RBC Hgb Hct MCV MCH MCHC RDW Plt Count MPV Sodium Potassium Chloride Carbon Dioxide Anion Gap BUN Creatinine Estimated GFR POC Glucose 153 H 179 H 172 H Random Glucose Calcium Magnesium Blood Type Antibody Screen MTS Gel Crossmatch 04/14/18 04/14/18 04/14/18 00:08 01:15 02:21 WBC RBC Hgb Hct MCV MCH MCHC RDW Plt Count MPV Sodium Potassium Chloride Carbon Dioxide Anion Gap BUN Creatinine Estimated GFR POC Glucose 158 H 128 H 111 H Random Glucose Calcium Magnesium Blood Type Antibody Screen MTS Gel Crossmatch 04/14/18 04/14/18 04/14/18 03:50 03:50 03:54 WBC 22.4 H RBC 4.05 L Hgb 12.5 L Hct 35.0 L MCV 86.5 MCH 30.8 MCHC 35.7 RDW 13.3 Plt Count 391 D MPV 7.6 Sodium 137 Potassium 4.2 Chloride 105 Carbon Dioxide 26.5 Anion Gap 6 BUN 11 Creatinine 0.84 Estimated GFR Greater than 89 POC Glucose 116 H Random Glucose 116 H Calcium 8.6 Magnesium 2.3 Blood Type Antibody Screen MTS Gel Crossmatch 04/14/18 04/14/18 04/14/18 06:04 07:43 09:26 WBC RBC Hgb Hct MCV MCH MCHC RDW Plt Count MPV Sodium Potassium Chloride Carbon Dioxide Anion Gap BUN Creatinine Estimated GFR POC Glucose 114 H 111 H 140 H Random Glucose Calcium Magnesium Blood Type Antibody Screen MTS Gel Crossmatch 04/14/18 14:32 WBC RBC Hgb Hct MCV MCH MCHC RDW Plt Count MPV Sodium Potassium Chloride Carbon Dioxide Anion Gap BUN Creatinine Estimated GFR POC Glucose 181 H Random Glucose Calcium Magnesium Blood Type Antibody Screen MTS Gel Crossmatch - Imaging Impressions Chest X-Ray 04/14/18 05:00 CONCLUSION: No pneumothorax or infiltrate. - Procedures Cardiac catheterization and CABG Assessment and Plan - Plan 67-year-old man with CAD- NSTEMI S/P cath with 2VD. CABG x3 vessels Hypertension -Stable continue postoperative care with aspirin, Lipitor, lisinopril and pain management consult regarding narcotics -Cardiology ff -Dr. Bruno ff Right lower extremity cellulitis - continues to improve dramatically Blood cultures negative d/w ID 04/09 - continue on antibiotics- Ancef s/p VAncomycin Today has leukocytosis likely reactive. Repeat CBC in the morning and consider switching to p.o. antimicrobial. Blood cultures negative to date Right big toe, posterio aspect - superficial dry ulcer- no signs of infection - advise OP ff up with a Podiatry for routine podiatry care Diabetes mellitus, type 2 - Stable continue sliding scale and Levemir - here with our diet- good readings - continue Sliding scale insulin. - All hyperglycemic agents on hold- as OP was on Metformin, glipizide and Januvia- JESUS- resolved - good urine output - good po intake - Heplock. monitor BMP DVT prophylaxis: Heparin- off s/p surgery. Patient ambulatory
[2018-04-14] MEDS: Insulin Detemir Inj 1,000 UNIT/10 ML Vial SQ SCH (21:23)
[2018-04-14] MEDS: Docusate Sodium 100 MG Capsule PO SCH (21:23)
[2018-04-15] MEDS: ceFAZolin 2 GM Premix Inj 2 GM/50 ML PIGGYBACK IV.SIG SCH ×3 (03:00→19:32)
[2018-04-15] MEDS: Insulin NovoLOG Aspart Correctional Sugar Inj SQ SCH ×5 (04:00→21:03)
[2018-04-15 05:21] LABS: Baso # (Auto) 0.1 th/mm3 (0.0-0.2); Baso % (Auto) 0.5 % (0.0-2.0); Eos % (Auto) 0.2 % (0.0-4.0); Hematocrit 34.8 % (39.0-51.0); Hemoglobin 12.2 gm/dL (13.0-17.0); Lymph % (Auto) 12.2 % (9.0-44.0); Mean Corpuscular Hemoglobin 30.8 pg (27.0-34.0); Mean Platelet Volume 8.6 fL (7.0-11.0); Mono # (Auto) 2.4 th/mm3 (0.0-0.9); Mono % (Auto) 9.8 % (0.0-8.0); Neut # (Auto) 18.8 th/mm3 (1.8-7.7); Neut % (Auto) 77.3 % (16.0-70.0); Platelet Count 364 th/mm3 (150-450); Red Blood Count 3.95 mil/mm3 (4.50-5.90); Red Cell Distribution Width 13.7 % (11.6-17.2); White Blood Count 24.3 th/mm3 (4.0-11.0)
[2018-04-15 05:27] LABS: Calcium 8.2 mg/dL (8.5-10.1); Carbon Dioxide 25.5 meq/L (21.0-32.0); Magnesium 2.2 mg/dL (1.5-2.5); Potassium 3.8 meq/L (3.5-5.1)
[2018-04-15] MEDS: Amiodarone 200 MG Tablet PO SCH ×3 (06:09→21:02)
[2018-04-15 07:07] LABS: Eosinophils 1 % (0-4); Lymphocytes 7 % (9-44); Monocytes 16 % (0-8); Platelet Estimate Normal (Normal); Platelet Morphology Normal (Normal)
[2018-04-15 07:08] LABS: RBC Morphology Normal (Normal)
[2018-04-15] MEDS: Docusate Sodium 100 MG Capsule PO SCH ×2 (08:23→21:02)
[2018-04-15] MEDS: Multivitamin/Minerals Therapeutic Tablet PO SCH (08:23)
[2018-04-15] MEDS: Polyethylene Glycol 3350 17 GM Packet PO SCH (08:23)
[2018-04-15] MEDS: Lisinopril 10 MG Tablet PO SCH (08:23)
[2018-04-15] MEDS: Insulin Detemir Inj 1,000 UNIT/10 ML Vial SQ SCH ×2 (08:23→21:03)
[2018-04-15] MEDS: glipiZIDE 10 MG Tablet PO SCH (11:02)
[2018-04-15] MEDS ORDERED: Lisinopril 10 MG Tablet PO ONE (11:30)
[2018-04-15] MEDS ORDERED: Metoprolol Tartrate 25 MG Tablet PO ONE (12:53)
--- NOTE | 2018-04-15 13:19 | P.PNCV ---
- Note Subjective/Hospital Course: A 67-year-old male with history of coronary artery disease, presented to the emergency room with chest pain, dyspnea with minimal to mild exertion. He had a near syncopal episode at home when he was trying to get up to the bathroom. He also has been complaining of some swelling and erythema and pain to his right lower extremity. Denied having any injury or any kind of insect bites. His troponins were elevated. He underwent cardiac catheterization, which showed ejection fraction of 50%, mild to moderate disease of the proximal LAD and the right coronary artery. The right coronary artery was diffusely diseased, basically totally occluded at the ostium. There were left to right collaterals. Left main disease of 50%, IVUS was completed for the left main, which showed 60%. We were consulted to evaluate for coronary artery bypass grafting. PAST MEDICAL HISTORY: Includes coronary artery disease, prior stenting 2005 and then also another cardiac catheterization in 2008 where he underwent 2 stents to the proximal and mid RCA, diabetes mellitus, hypertension, sleep apnea. He had a TIA in 2005, hyperlipidemia. 04/09 pt seen and evaluated by KIARRA campbell for surgery , not to use RLE for harvesting continue IV antibiotics for now right leg has been improving daily carotid US unremarkable lower ext doppler, no DVT 04/10 waiting for surgery 04/13 for surgery today right leg cellulitis greatly improved surgery same Date of procedure: 04/13/18 Procedure: CABG x 3 BRIAN to LAd - good SVG to RI - good SVG to PDA - good EVH extubated after surgery 2000cc crystalloid, 500cc cell saver 04/14 up in chair doing well right leg improving daily continue ABX for now add low dose BB levemir to wean insulin gtt transfer to stepdown 04/15 increasing leukocytosis, low grade fever, right leg improving daily will however recheck blood cultures and UA then DC CVC line , pt has received post op Ancef BP and HR elevated meds adjusted for BP and HR chest tube dc without difficulty check post CXT today Objective: Vital Signs - 24 hr 04/14/18 14:50 04/14/18 15:00 04/14/18 16:00 Temperature 98.6 F 98.6 F Pulse Rate 93 H 99 H 99 H Respiratory Rate 18 18 16 Blood Pressure 135/75 135/75 Pulse Oximetry 96 96 04/14/18 19:00 04/14/18 20:00 04/14/18 20:51 Temperature 99 F Pulse Rate 104 H 104 H 104 H Respiratory Rate 20 20 Blood Pressure 154/83 H Pulse Oximetry 96 94 L 04/14/18 21:00 04/14/18 22:00 04/14/18 23:00 Temperature Pulse Rate 100 H 108 H 106 H Respiratory Rate Blood Pressure Pulse Oximetry 04/15/18 00:00 04/15/18 00:25 04/15/18 01:00 Temperature 100.5 F H Pulse Rate 106 H 105 H 104 H Respiratory Rate 20 Blood Pressure 154/79 H Pulse Oximetry 96 04/15/18 03:00 04/15/18 03:59 04/15/18 04:00 Temperature 99.2 F Pulse Rate 102 H 103 H 103 H Respiratory Rate 20 Blood Pressure 157/73 H Pulse Oximetry 96 04/15/18 05:38 04/15/18 06:38 04/15/18 07:00 Temperature 99.3 F Pulse Rate 102 H 106 H 117 H Respiratory Rate 20 Blood Pressure 183/69 H Pulse Oximetry 94 L 04/15/18 08:00 04/15/18 08:30 04/15/18 09:00 Temperature Pulse Rate 110 H 124 H Respiratory Rate Blood Pressure Pulse Oximetry 97 04/15/18 10:00 04/15/18 11:00 04/15/18 12:00 Temperature 98 F Pulse Rate 110 H 107 H 106 H Respiratory Rate 18 Blood Pressure 142/81 H Pulse Oximetry 95 GENERAL: A&O x 3 SKIN: Warm and dry. prevena dressing to chest, incision intact to left leg right leg swelling and ecchymosis improved HEAD: Normocephalic. EYES: No scleral icterus. No injection or drainage. NECK: Supple, trachea midline. No JVD or lymphadenopathy. CARDIOVASCULAR:slightly tachycardic Regular rate and rhythm without murmurs, gallops, or rubs. RESPIRATORY: Breath sounds equal bilaterally. No accessory muscle use. chest tube dc GASTROINTESTINAL: Abdomen soft, non-tender, nondistended. MUSCULOSKELETAL: No cyanosis, or edema. BACK: Nontender without obvious deformity. No CVA tenderness. Labs: Laboratory Results - last 12 hr 04/12/18 04/15/18 04/15/18 04:20 04:13 04:13 WBC 24.3 H RBC 3.95 L Hgb 12.2 L Hct 34.8 L MCV 88.0 MCH 30.8 MCHC 35.0 RDW 13.7 Plt Count 364 MPV 8.6 Prelim Diff (Auto) Slide review pending Neut % (Auto) 77.3 H Lymph % (Auto) 12.2 [place] % (Auto) 9.8 H Eos % (Auto) 0.2 Baso % (Auto) 0.5 Neut # (Auto) 18.8 H Lymph # (Auto) 3.0 [place] # (Auto) 2.4 H Eos # (Auto) 0.0 Baso # (Auto) 0.1 WBC Differential Manual diff final Seg Neuts % (Manual) 76 H Lymphocytes % (Manual) 7 L Monocytes % (Manual) 16 H Eosinophils % (Manual) 1 Abs Neuts (Manual) 18.5 H Differential Comment . Platelet Estimate Normal Platelet Morphology Normal RBC Morphology Normal Sodium 137 Potassium 3.8 Chloride 104 Carbon Dioxide 25.5 Anion Gap 8 BUN 15 Creatinine 0.91 Estimated GFR 83 L POC Glucose Random Glucose 134 H Calcium 8.2 L Magnesium 2.2 MTS Gel Crossmatch See Detail 04/15/18 04:52 WBC RBC Hgb Hct MCV MCH MCHC RDW Plt Count MPV Prelim Diff (Auto) Neut % (Auto) Lymph % (Auto) [place] % (Auto) Eos % (Auto) Baso % (Auto) Neut # (Auto) Lymph # (Auto) [place] # (Auto) Eos # (Auto) Baso # (Auto) WBC Differential Seg Neuts % (Manual) Lymphocytes % (Manual) Monocytes % (Manual) Eosinophils % (Manual) Abs Neuts (Manual) Differential Comment Platelet Estimate Platelet Morphology RBC Morphology Sodium Potassium Chloride Carbon Dioxide Anion Gap BUN Creatinine Estimated GFR POC Glucose 133 H Random Glucose Calcium Magnesium MTS Gel Crossmatch Result Diagrams: 04/15/18 04:13 04/15/18 04:13 - Plan (1) S/P CABG (coronary artery bypass graft) Plan: RESP: pulm nebs, ezpap acapella CV: BB , increased dose , on amiodarone GI: protonix, ENDO: , Bid levemir Line s CVC line day 2 CM to eval for HHC (3) Cellulitis Plan: on antibiotics/ improved on ancef IV repeat blood cultures UA (4) Coronary artery disease Plan: Resp: nebs ezpap acapella CV: ASA, statin BB OOB ambulate GI: motiltiy meds protonix lines : dc cvc line (5) Hypertension (3) Cellulitis Qualifiers: Site of cellulitis: extremity Site of cellulitis of extremity: lower extremity Laterality: right Qualified Code(s): L03.115 - Cellulitis of right lower limb (4) Coronary artery disease Qualifiers: Coronary Disease-Associated Artery/Lesion type: [place] artery [place] vs. transplanted heart: [place] heart Associated angina: with unstable angina Qualified Code(s): I25.110 - Atherosclerotic heart disease of [place] coronary artery with unstable angina pectoris (5) Hypertension Qualifiers: Hypertension type: essential hypertension Qualified Code(s): I10 - Essential (primary) hypertension
--- NOTE | 2018-04-15 13:54 | P.PN ---
Subjective Interval history: Follow-up CAD status post CABG x3 vessels. He is at the margin of the bed appears in not acute distress. He is eating. No nausea vomiting no diarrhea or constipation. Says he has some chest pain the surgical site especially with coughing. He is not wheezing. No fever or chills. He is doing well on room air. He has been ambulating the hallway. Physical Exam Vital signs: Vital Signs 04/14/18 14:50 04/14/18 15:00 04/14/18 16:00 Temperature 98.6 F 98.6 F Pulse Rate 93 H 99 H 99 H Respiratory Rate 18 18 16 Blood Pressure 135/75 135/75 Pulse Oximetry 96 96 04/14/18 19:00 04/14/18 20:00 04/14/18 20:51 Temperature 99 F Pulse Rate 104 H 104 H 104 H Respiratory Rate 20 20 Blood Pressure 154/83 H Pulse Oximetry 96 94 L 04/14/18 21:00 04/14/18 22:00 04/14/18 23:00 Temperature Pulse Rate 100 H 108 H 106 H Respiratory Rate Blood Pressure Pulse Oximetry 04/15/18 00:00 04/15/18 00:25 04/15/18 01:00 Temperature 100.5 F H Pulse Rate 106 H 105 H 104 H Respiratory Rate 20 Blood Pressure 154/79 H Pulse Oximetry 96 04/15/18 03:00 04/15/18 03:59 04/15/18 04:00 Temperature 99.2 F Pulse Rate 102 H 103 H 103 H Respiratory Rate 20 Blood Pressure 157/73 H Pulse Oximetry 96 04/15/18 05:38 04/15/18 06:38 04/15/18 07:00 Temperature 99.3 F Pulse Rate 102 H 106 H 117 H Respiratory Rate 20 Blood Pressure 183/69 H Pulse Oximetry 94 L 04/15/18 08:00 04/15/18 08:30 04/15/18 09:00 Temperature Pulse Rate 110 H 124 H Respiratory Rate Blood Pressure Pulse Oximetry 97 04/15/18 10:00 04/15/18 11:00 04/15/18 12:00 Temperature 98 F Pulse Rate 110 H 107 H 106 H Respiratory Rate 18 Blood Pressure 142/81 H Pulse Oximetry 95 Intake & Output 04/14/18 04/15/18 04/15/18 18:59 06:59 18:59 Intake Total 1030 / 1030 520 / 520 50 / 50 Output Total 725 / 725 875 / 875 Balance 305 / 305 -355 / -355 50 / 50 Weight 131.5 kg Intake: IV 50 / 50 100 / 100 50 / 50 Ancef 2 GM Premix Inj 2 gm In 50 / 50 100 / 100 50 / 50 50 ml @ 100 mls/hr IV.SIG Q8H ANGIE Rx#:[id number] Oral 980 / 980 420 / 420 Output: Urine 625 / 625 825 / 825 Chest Tube Drainage 100 / 100 50 / 50 Pleural/Mediastinal 100 / 100 50 / 50 Other: Date of Last Bowel Movement 04/15/18 Narrative: GENERAL: Very pleasant 67-year-old male appears in not acute distress. CARDIOVASCULAR: Prevnar in place. Regular rate and rhythm. RESPIRATORY: No accessory muscle use. Clear to auscultation. Breath sounds equal bilaterally. GASTROINTESTINAL: Abdomen soft, non-tender, nondistended. Hepatic and splenic margins not palpable. MUSCULOSKELETAL: Extremities without clubbing, cyanosis, or edema. No obvious deformities. NEUROLOGICAL: Awake and alert. No obvious cranial nerve deficits. Motor grossly within normal limits. Five out of 5 muscle strength in the arms and legs. Normal speech. PSYCHIATRIC: Appropriate mood and affect; insight and judgment normal. - Urinary Catheter Management Indwelling Temp Sensing Catheter Cath placed during this visit: yes, but has since been removed by the nurse Reason for continuing: Continue criteria not met Insertion date: 04/13/18 Insertion time: 11:45 Removal date: 04/14/18 Removal time: 05:30 Results - Labs CBC & Chem 7: 04/15/18 04:13 04/15/18 04:13 Laboratory Results - last 24 hr 04/12/18 04/14/18 04/14/18 04:20 14:32 18:00 WBC RBC Hgb Hct MCV MCH MCHC RDW Plt Count MPV Prelim Diff (Auto) Neut % (Auto) Lymph % (Auto) [place] % (Auto) Eos % (Auto) Baso % (Auto) Neut # (Auto) Lymph # (Auto) [place] # (Auto) Eos # (Auto) Baso # (Auto) WBC Differential Seg Neuts % (Manual) Lymphocytes % (Manual) Monocytes % (Manual) Eosinophils % (Manual) Abs Neuts (Manual) Differential Comment Platelet Estimate Platelet Morphology RBC Morphology Sodium Potassium Chloride Carbon Dioxide Anion Gap BUN Creatinine Estimated GFR POC Glucose 181 H 231 H Random Glucose Calcium Magnesium MTS Gel Crossmatch See Detail 04/14/18 04/15/18 04/15/18 23:17 04:13 04:13 WBC 24.3 H RBC 3.95 L Hgb 12.2 L Hct 34.8 L MCV 88.0 MCH 30.8 MCHC 35.0 RDW 13.7 Plt Count 364 MPV 8.6 Prelim Diff (Auto) Slide review pending Neut % (Auto) 77.3 H Lymph % (Auto) 12.2 [place] % (Auto) 9.8 H Eos % (Auto) 0.2 Baso % (Auto) 0.5 Neut # (Auto) 18.8 H Lymph # (Auto) 3.0 [place] # (Auto) 2.4 H Eos # (Auto) 0.0 Baso # (Auto) 0.1 WBC Differential Manual diff final Seg Neuts % (Manual) 76 H Lymphocytes % (Manual) 7 L Monocytes % (Manual) 16 H Eosinophils % (Manual) 1 Abs Neuts (Manual) 18.5 H Differential Comment . Platelet Estimate Normal Platelet Morphology Normal RBC Morphology Normal Sodium 137 Potassium 3.8 Chloride 104 Carbon Dioxide 25.5 Anion Gap 8 BUN 15 Creatinine 0.91 Estimated GFR 83 L POC Glucose 171 H Random Glucose 134 H Calcium 8.2 L Magnesium 2.2 MTS Gel Crossmatch 04/15/18 04:52 WBC RBC Hgb Hct MCV MCH MCHC RDW Plt Count MPV Prelim Diff (Auto) Neut % (Auto) Lymph % (Auto) [place] % (Auto) Eos % (Auto) Baso % (Auto) Neut # (Auto) Lymph # (Auto) [place] # (Auto) Eos # (Auto) Baso # (Auto) WBC Differential Seg Neuts % (Manual) Lymphocytes % (Manual) Monocytes % (Manual) Eosinophils % (Manual) Abs Neuts (Manual) Differential Comment Platelet Estimate Platelet Morphology RBC Morphology Sodium Potassium Chloride Carbon Dioxide Anion Gap BUN Creatinine Estimated GFR POC Glucose 133 H Random Glucose Calcium Magnesium MTS Gel Crossmatch - Procedures Cardiac catheterization and CABG Assessment and Plan - Plan 67-year-old man with CAD- NSTEMI S/P cath with 2VD. CABG x3 vessels Hypertension -Stable continue postoperative care with aspirin, Lipitor, lisinopril and pain management consult regarding narcotics -Cardiology ff -Dr. Bruno ff Right lower extremity cellulitis - continues to improve dramatically Blood cultures negative d/w ID 04/09 - continue on antibiotics- Ancef s/p VAncomycin Today has leukocytosis likely reactive. Repeat CBC in the morning and consider switching to p.o. antimicrobial. Blood cultures negative to date Right big toe, posterio aspect - superficial dry ulcer- no signs of infection - advise OP ff up with a Podiatry for routine podiatry care Diabetes mellitus, type 2 - Stable continue sliding scale and Levemir - here with our diet- good readings - continue Sliding scale insulin. - All hyperglycemic agents on hold- as OP was on Metformin, glipizide and Januvia- JESUS- resolved - good urine output - good po intake - Heplock. monitor BMP DVT prophylaxis: Heparin- off s/p surgery. Patient ambulatory Discharge plan. Pending improvement and clearance by cardiothoracic surgeon.
--- NOTE | 2018-04-15 16:48 | ECG ---
Date Performed: 04/15/2018 Time Performed: 10:21:36 PTAGE: 67 years EKG: Sinus tachycardia Short NV interval Left axis deviation Left bundle branch block Abnormal E CG PREVIOUS TRACING : 01/22/2016 19.10 Since the previous tracing, no significant change noted DOCTOR: Ángel Marx Interpretating Date/Time 04/15/2018 16:46:47
[2018-04-15 18:52] LABS: Bilirubin,Urine Negative (Negative); Clarity,Urine Clear (Clear); Color,Urine Yellow (Yellw/Straw); Glucose,Urine (UA) Negative (Negative); Leukocyte Esterase,Urine Negative (Negative); Mucus,Urine Few /lpf (Occasional); Nitrite,Urine Negative (Negative); Specific Gravity,Urine 1.013 (1.002-1.035)
[2018-04-15] MEDS: Metoprolol Tartrate 50 MG Tablet PO SCH (21:02)
[2018-04-16] MEDS: ceFAZolin 2 GM Premix Inj 2 GM/50 ML PIGGYBACK IV.SIG SCH ×2 (03:15→13:09)
[2018-04-16] MEDS ORDERED: Pharmacy Ordered Lab Info OTHER ONE (03:45)
--- NOTE | 2018-04-16 04:37 | XR ---
EXAM DATE: 04/16/2018 4:24 AM EST AGE/SEX: 67 years / Male INDICATIONS: Shortness of breath, possible pneumothorax. CLINICAL DATA: This is the patient's subsequent encounter. Patient reports that signs and symptoms h ave been present for 1 week and indicates a pain score of 7/10. MEDICAL/SURGICAL HISTORY: Hypertension. Diabetes mellitus type II. Stroke. Coronary artery st ent. COMPARISON: [facility] [place] 1V SINGLE AP, 04/14/2018. . FINDINGS: A single AP view of the chest demonstrates interval removal of the left thoracostomy tube. No pneumot horax. Lungs are clear. No effusions. Median sternotomy wires. Top normal heart size. Left subclavian central line has been removed. CONCLUSION: No pneumothorax. Electronically signed by: Brian Ag MD 04/16/2018 4:36 AM EST
[2018-04-16 05:45] LABS: Hematocrit 35.4 % (39.0-51.0); Hemoglobin 11.9 gm/dL (13.0-17.0); Mean Corpuscular HGB Conc 33.6 % (32.0-36.0); Mean Corpuscular Hemoglobin 30.5 pg (27.0-34.0); Mean Corpuscular Volume 90.9 fL (80.0-100.0); Platelet Count 342 th/mm3 (150-450); Red Cell Distribution Width 13.8 % (11.6-17.2); White Blood Count 20.4 th/mm3 (4.0-11.0)
[2018-04-16 06:08] LABS: Calcium 8.4 mg/dL (8.5-10.1); Carbon Dioxide 28.4 meq/L (21.0-32.0); Magnesium 2.3 mg/dL (1.5-2.5); Phosphorus 2.6 mg/dL (2.5-4.9); Potassium 4.7 meq/L (3.5-5.1)
[2018-04-16] MEDS: Amiodarone 200 MG Tablet PO SCH ×2 (06:33→20:34)
[2018-04-16] MEDS: Multivitamin/Minerals Therapeutic Tablet PO SCH (09:06)
[2018-04-16] MEDS: Metoprolol Tartrate 50 MG Tablet PO SCH ×2 (09:06→20:35)
[2018-04-16] MEDS: Insulin Detemir Inj 1,000 UNIT/10 ML Vial SQ SCH ×2 (09:06→22:11)
[2018-04-16] MEDS: Lisinopril 10 MG Tablet PO SCH (09:06)
[2018-04-16] MEDS: glipiZIDE 10 MG Tablet PO SCH (09:06)
[2018-04-16] MEDS: Insulin NovoLOG Aspart Correctional Sugar Inj SQ SCH ×5 (09:07→20:34)
[2018-04-16] MEDS: Docusate Sodium 100 MG Capsule PO SCH (09:12)
[2018-04-16] MEDS: Polyethylene Glycol 3350 17 GM Packet PO SCH (09:12)
--- NOTE | 2018-04-16 10:48 | P.PNIM ---
Subjective Interval history: Follow-up CAD status post CABG x3 vessels. He is at the side of the bed appears in not acute distress. He is eating. No nausea vomiting no diarrhea or constipation. Says he has some chest pain the surgical site especially with coughing. He is not wheezing. No fever or chills. He is doing well on room air. He has been ambulating the hallway. 04-16 NO SOB, NO CHEST PAIN SITTING IN CHAIR HAS SOME SWELLING SOME SURGICAL SITE PAIN DW [facility] NOT CLEAR FOR DISCHARGE AM LABS ID ON CASE NOW HAD SURGERY ON 04-13 CABG x 3 BRIAN to LAd - good SVG to RI - good SVG to PDA - good EVH Physical Exam Vital signs: Vital Signs 04/15/18 11:00 04/15/18 12:00 04/15/18 15:00 Temperature 98 F 98.6 F Pulse Rate 107 H 106 H 93 H Respiratory Rate 18 18 Blood Pressure 142/81 H 121/62 Pulse Oximetry 95 92 L 04/15/18 16:00 04/15/18 19:00 04/15/18 20:39 Temperature 99.1 F Pulse Rate 92 H 105 H 103 H Respiratory Rate 18 18 Blood Pressure 149/79 H Pulse Oximetry 95 95 04/15/18 23:00 04/16/18 03:00 04/16/18 07:27 Temperature 98.9 F 98.9 F Pulse Rate 90 99 H 96 H Respiratory Rate 17 18 18 Blood Pressure 148/72 H 121/59 L Pulse Oximetry 96 94 L 94 L 04/16/18 07:28 04/16/18 07:42 04/16/18 08:38 Temperature 98.1 F Pulse Rate 95 H 98 H Respiratory Rate 16 Blood Pressure 136/71 Pulse Oximetry 94 L 94 L Intake & Output 04/15/18 04/16/18 04/16/18 18:59 06:59 18:59 Intake Total 1010 / 1010 420 / 420 Output Total 675 / 675 Balance 335 / 335 420 / 420 Weight 127 kg Intake: IV 50 / 50 100 / 100 Ancef 2 GM Premix Inj 2 gm In 50 / 50 100 / 100 50 ml @ 100 mls/hr IV.SIG Q8H [facility] Rx#:[id number] Oral 960 / 960 320 / 320 Output: Urine 675 / 675 Other: Mode Setting Right Lower Leg Continuous # Voids 5 Date of Last Bowel Movement 12/05/18 12/05/18 12/06/18 # Bowel Movements 2 Narrative: GENERAL: Very pleasant 67-year-old male appears in not acute distress. CARDIOVASCULAR: Prevnar in place. Regular rate and rhythm. RESPIRATORY: No accessory muscle use. Clear to auscultation. Breath sounds equal bilaterally. GASTROINTESTINAL: Abdomen soft, non-tender, nondistended. Hepatic and splenic margins not palpable. MUSCULOSKELETAL: Extremities without clubbing, cyanosis, or edema. No obvious deformities. NEUROLOGICAL: Awake and alert. No obvious cranial nerve deficits. Motor grossly within normal limits. Five out of 5 muscle strength in the arms and legs. Normal speech. PSYCHIATRIC: Appropriate mood and affect; insight and judgment normal. - Urinary Catheter Management Indwelling Temp Sensing Catheter Cath placed during this visit: yes, but has since been removed by the nurse Reason for continuing: Continue criteria not met Insertion date: 04/13/18 Insertion time: 11:45 Removal date: 04/14/18 Removal time: 05:30 Results - Labs CBC & Chem 7: 04/16/18 05:02 04/16/18 05:02 Laboratory Results - last 24 hr 04/15/18 04/15/18 04/15/18 16:47 18:07 19:27 WBC RBC Hgb Hct MCV MCH MCHC RDW Plt Count MPV Sodium Potassium Chloride Carbon Dioxide Anion Gap BUN Creatinine Estimated GFR POC Glucose 88 157 H Random Glucose Calcium Phosphorus Magnesium Urine Color Yellow Urine Clarity Clear Urine pH 7.0 Ur Specific [place] 1.013 Urine Protein Negative Urine Glucose (UA) Negative Urine Ketones Negative Urine Occult Blood Negative Urine Nitrate Negative Urine Bilirubin Negative Urine Urobilinogen Less than 2 Ur Leukocyte Esterase Negative Urine RBC 2 Urine WBC 2 Urine Mucus Few H Micro UA Comment Culture not ind Ur Microscopic Review Not Reportable Urine Culture Comments Culture not ind 04/16/18 04/16/18 04/16/18 05:02 05:02 07:45 WBC 20.4 H RBC 3.90 L Hgb 11.9 L Hct 35.4 L MCV 90.9 MCH 30.5 MCHC 33.6 RDW 13.8 Plt Count 342 MPV 8.0 Sodium 138 Potassium 4.7 D Chloride 103 Carbon Dioxide 28.4 Anion Gap 7 BUN 15 Creatinine 1.02 Estimated GFR 73 L POC Glucose 145 H Random Glucose 147 H Calcium 8.4 L Phosphorus 2.6 Magnesium 2.3 Urine Color Urine Clarity Urine pH Ur Specific [place] Urine Protein Urine Glucose (UA) Urine Ketones Urine Occult Blood Urine Nitrate Urine Bilirubin Urine Urobilinogen Ur Leukocyte Esterase Urine RBC Urine WBC Urine Mucus Micro UA Comment Ur Microscopic Review Urine Culture Comments - Imaging Impressions Chest X-Ray 04/16/18 06:00 CONCLUSION: No pneumothorax. - Procedures Cardiac catheterization and CABG 12-3 CABG x 3 BRIAN to LAd - good SVG to RI - good SVG to PDA - good EVH Assessment and Plan - Plan 67-year-old man with CAD- NSTEMI S/P cath with 2VD. CABG x3 vessels 12-3 Hypertension -Stable continue postoperative care with aspirin, Lipitor, lisinopril and pain management consult regarding narcotics -Cardiology ff -Dr. Bruno [facility] Right lower extremity cellulitis - continues to improve dramatically Blood cultures negative d/w ID 04/09 - continue on antibiotics- Ancef s/p VAncomycin Today has leukocytosis likely reactive. Repeat CBC in the morning and consider switching to p.o. antimicrobial. Blood cultures negative to date Right big toe, posterior aspect - superficial dry ulcer- no signs of infection - advise OP ff up with a Podiatry for routine podiatry care Diabetes mellitus, type 2 - Stable continue sliding scale and Levemir - here with our diet- good readings - continue Sliding scale insulin. - All hyperglycemic agents RESTARTED- as OP was on Metformin, glipizide and Januvia- ALSO ON LEVEMIR JESUS- resolved - good urine output - good po intake - Heplock. monitor BMP DVT prophylaxis: Heparin- off s/p surgery. Patient ambulatory Code Status: full code Discussed Condition With: RN AND PT AND CM AND [facility] Discharge Planning: NOT CLEARED YET
--- NOTE | 2018-04-16 12:01 | P.PNID ---
Subjective Remarks: sp CABG x 3 on 04/13/18 low grade temp noted yday up to 100.5 c/o liquid BMs, 5 in the last 24 hrs denies abd pain or cramps Antibiotics: ancef Allergies/Adverse Reactions: Allergies No Known Allergies Allergy (Verified 04/07/18 14:41) Objective Vital Signs 04/15/18 12:00 04/15/18 15:00 04/15/18 16:00 Temperature 98.6 F Pulse Rate 106 H 93 H 92 H Respiratory Rate 18 Blood Pressure 121/62 Pulse Oximetry 92 L 04/15/18 19:00 04/15/18 20:39 04/15/18 23:00 Temperature 99.1 F 98.9 F Pulse Rate 105 H 103 H 90 Respiratory Rate 18 18 17 Blood Pressure 149/79 H 148/72 H Pulse Oximetry 95 95 96 04/16/18 03:00 04/16/18 07:27 04/16/18 07:28 Temperature 98.9 F Pulse Rate 99 H 96 H 95 H Respiratory Rate 18 18 Blood Pressure 121/59 L Pulse Oximetry 94 L 94 L 04/16/18 07:42 04/16/18 08:38 04/16/18 11:00 Temperature 98.1 F Pulse Rate 98 H 83 Respiratory Rate 16 Blood Pressure 136/71 Pulse Oximetry 94 L 94 L Intake & Output 04/15/18 04/16/18 04/16/18 18:59 06:59 18:59 Intake Total 1010 / 1010 420 / 420 Output Total 675 / 675 Balance 335 / 335 420 / 420 Weight 127 kg Intake: IV 50 / 50 100 / 100 Ancef 2 GM Premix Inj 2 gm In 50 / 50 100 / 100 50 ml @ 100 mls/hr IV.SIG Q8H [facility] Rx#:[id number] Oral 960 / 960 320 / 320 Output: Urine 675 / 675 Other: Mode Setting Right Lower Leg Continuous # Voids 5 Date of Last Bowel Movement 04/15/18 04/15/18 04/16/18 # Bowel Movements 2 04/15/18 Unknown Blood - Line Aerobic Blood Culture - Preliminary No growth in 1 day 04/15/18 Unknown Blood - Line Anaerobic Blood Culture - Preliminary No growth in 1 day 04/15/18 14:15 Blood - Line Aerobic Blood Culture - Preliminary No growth in 1 day 04/15/18 14:15 Blood - Line Anaerobic Blood Culture - Preliminary No growth in 1 day Lab - Hematology Results 04/15/18 04/16/18 04:13 05:02 WBC 24.3 H 20.4 H RBC 3.95 L 3.90 L Hgb 12.2 L 11.9 L Hct 34.8 L 35.4 L MCV 88.0 90.9 MCH 30.8 30.5 MCHC 35.0 33.6 RDW 13.7 13.8 Plt Count 364 342 MPV 8.6 8.0 Prelim Diff (Auto) Slide review pending Neut % (Auto) 77.3 H Lymph % (Auto) 12.2 [place] % (Auto) 9.8 H Eos % (Auto) 0.2 Baso % (Auto) 0.5 Neut # (Auto) 18.8 H Lymph # (Auto) 3.0 [place] # (Auto) 2.4 H Eos # (Auto) 0.0 Baso # (Auto) 0.1 WBC Differential Manual diff final Seg Neuts % (Manual) 76 H Lymphocytes % (Manual) 7 L Monocytes % (Manual) 16 H Eosinophils % (Manual) 1 Abs Neuts (Manual) 18.5 H Differential Comment . Platelet Estimate Normal Platelet Morphology Normal RBC Morphology Normal Lab - Chemistry Results 04/14/18 04/14/18 04/14/18 14:32 18:00 23:17 Sodium Potassium Chloride Carbon Dioxide Anion Gap BUN Creatinine Estimated GFR POC Glucose 181 H 231 H 171 H Random Glucose Calcium Phosphorus Magnesium 04/15/18 04/15/18 04/15/18 04:13 04:52 16:47 Sodium 137 Potassium 3.8 Chloride 104 Carbon Dioxide 25.5 Anion Gap 8 BUN 15 Creatinine 0.91 Estimated GFR 83 L POC Glucose 133 H 88 Random Glucose 134 H Calcium 8.2 L Phosphorus Magnesium 2.2 04/15/18 04/16/18 04/16/18 19:27 05:02 07:45 Sodium 138 Potassium 4.7 D Chloride 103 Carbon Dioxide 28.4 Anion Gap 7 BUN 15 Creatinine 1.02 Estimated GFR 73 L POC Glucose 157 H 145 H Random Glucose 147 H Calcium 8.4 L Phosphorus 2.6 Magnesium 2.3 Imaging: ITS Impressions Carotid Doppler Study 04/08/18 13:14 CONCLUSION: 1. Right Internal Carotid Artery: Minimal atherosclerotic plaquing. No hemodynamically significant stenosis identified. 2. Left Internal Carotid Artery: Minimal atherosclerotic plaquing. No hemodynamically significant stenosis identified. Lower Extremity Ultrasound 04/08/18 13:14 CONCLUSION: 1. Vein mapping as above. Venous Doppler Study 04/08/18 13:14 CONCLUSION: The study is negative for bilateral lower extremity deep venous thrombosis. Chest X-Ray 04/16/18 06:00 CONCLUSION: No pneumothorax. Physical Exam: GENERAL: NAD SKIN: Warm and dry. NO rash HEAD: Atraumatic. Normocephalic. EYES: Pupils equal and round. No scleral icterus. No injection or drainage. ENT: No nasal bleeding or discharge. Mucous membranes pink and moist. NECK: Trachea midline. No JVD. CARDIOVASCULAR: Regular rate and rhythm. Dressing in place RESPIRATORY: No accessory muscle use. Clear to auscultation. Breath sounds equal bilaterally. GASTROINTESTINAL: Abdomen soft, non-tender, nondistended. Hepatic and splenic margins not palpable. MUSCULOSKELETAL: Extremities without clubbing, cyanosis, + trace RLE edema, hyperpigmentation. No obvious deformities. NEUROLOGICAL: Awake and alert. Non focal . Normal speech. PSYCHIATRIC: Appropriate mood and affect; . Assessment and Plan - Plan RLE cellulitis, resolved sp tx CAD, sp CABG New issue leukocytopsis, ? post op ? infx - CXR neg -UA neg - only c/o liquid stool . + abx use dc ancef chk c. diff fu bl clx untill final otto Graf
--- NOTE | 2018-04-16 12:25 | P.PNCV ---
- Note Subjective/Hospital Course: A 67-year-old male with history of coronary artery disease, presented to the emergency room with chest pain, dyspnea with minimal to mild exertion. He had a near syncopal episode at home when he was trying to get up to the bathroom. He also has been complaining of some swelling and erythema and pain to his right lower extremity. Denied having any injury or any kind of insect bites. His troponins were elevated. He underwent cardiac catheterization, which showed ejection fraction of 50%, mild to moderate disease of the proximal LAD and the right coronary artery. The right coronary artery was diffusely diseased, basically totally occluded at the ostium. There were left to right collaterals. Left main disease of 50%, IVUS was completed for the left main, which showed 60%. We were consulted to evaluate for coronary artery bypass grafting. PAST MEDICAL HISTORY: Includes coronary artery disease, prior stenting 2005 and then also another cardiac catheterization in 2008 where he underwent 2 stents to the proximal and mid RCA, diabetes mellitus, hypertension, sleep apnea. He had a TIA in 2005, hyperlipidemia. 04/09 pt seen and evaluated by ID ok for surgery , not to use RLE for harvesting continue IV antibiotics for now right leg has been improving daily carotid US unremarkable lower ext doppler, no DVT 04/10 waiting for surgery 04/13 for surgery today right leg cellulitis greatly improved surgery same Date of procedure: 04/13/18 Procedure: CABG x 3 BRIAN to LAd - good SVG to RI - good SVG to PDA - good EVH extubated after surgery 2000cc crystalloid, 500cc cell saver 04/14 up in chair doing well right leg improving daily continue ABX for now add low dose BB levemir to wean insulin gtt transfer to stepdown 04/15 increasing leukocytosis, low grade fever, right leg improving daily will however recheck blood cultures and UA then DC CVC line , pt has received post op Ancef BP and HR elevated meds adjusted for BP and HR chest tube dc without difficulty check post CXT today 04/16 CXR unremarkable , WBC trending down right leg swelling and erythema worsening re-consulted ID, appreciate assistance Antibiotic changed Blood cultures pending BP and HR improved Objective: Vital Signs - 24 hr 04/15/18 15:00 04/15/18 16:00 04/15/18 19:00 Temperature 98.6 F 99.1 F Pulse Rate 93 H 92 H 105 H Respiratory Rate 18 18 Blood Pressure 121/62 149/79 H Pulse Oximetry 92 L 95 04/15/18 20:39 04/15/18 23:00 04/16/18 03:00 Temperature 98.9 F 98.9 F Pulse Rate 103 H 90 99 H Respiratory Rate 18 17 18 Blood Pressure 148/72 H 121/59 L Pulse Oximetry 95 96 94 L 04/16/18 07:27 04/16/18 07:28 04/16/18 07:42 Temperature 98.1 F Pulse Rate 96 H 95 H 98 H Respiratory Rate 18 16 Blood Pressure 136/71 Pulse Oximetry 94 L 94 L 04/16/18 08:38 04/16/18 11:00 04/16/18 12:16 Temperature 98.1 F Pulse Rate 83 63 Respiratory Rate 16 Blood Pressure 106/57 L Pulse Oximetry 94 L GENERAL: A&O x 3 SKIN: Warm and dry. prevena dressing in place to chest , left leg incision intact right leg more swollen today with increased erythema HEAD: Normocephalic. EYES: No scleral icterus. No injection or drainage. NECK: Supple, trachea midline. No JVD or lymphadenopathy. CARDIOVASCULAR: Regular rate and rhythm without murmurs, gallops, or rubs. RESPIRATORY: Breath sounds equal bilaterally. No accessory muscle use. GASTROINTESTINAL: Abdomen soft, non-tender, nondistended. MUSCULOSKELETAL: No cyanosis, or edema. BACK: Nontender without obvious deformity. No CVA tenderness. Labs: Laboratory Results - last 12 hr 04/16/18 04/16/18 04/16/18 05:02 05:02 07:45 WBC 20.4 H RBC 3.90 L Hgb 11.9 L Hct 35.4 L MCV 90.9 MCH 30.5 MCHC 33.6 RDW 13.8 Plt Count 342 MPV 8.0 Sodium 138 Potassium 4.7 D Chloride 103 Carbon Dioxide 28.4 Anion Gap 7 BUN 15 Creatinine 1.02 Estimated GFR 73 L POC Glucose 145 H Random Glucose 147 H Calcium 8.4 L Phosphorus 2.6 Magnesium 2.3 04/16/18 12:13 WBC RBC Hgb Hct MCV MCH MCHC RDW Plt Count MPV Sodium Potassium Chloride Carbon Dioxide Anion Gap BUN Creatinine Estimated GFR POC Glucose 161 H Random Glucose Calcium Phosphorus Magnesium Result Diagrams: 04/16/18 05:02 04/16/18 05:02 Telemetry: NSR - Plan (1) S/P CABG (coronary artery bypass graft) Plan: RESP: ezpap acapella on room air CV: BB , , on amiodarone GI: protonix, ENDO: , Bid levemir Line s CVC line DC ID: right leg cellultis ID re-consulted antibiotics changed Blood cultures pending CM to eval for HHC (3) Cellulitis Plan: on antibiotics/ improved on ancef IV repeat blood cultures UA (4) Coronary artery disease Plan: Resp: nebs ezpap acapella CV: ASA, statin BB OOB ambulate GI: motiltiy meds protonix lines : dc cvc line (5) Hypertension (3) Cellulitis Qualifiers: Site of cellulitis: extremity Site of cellulitis of extremity: lower extremity Laterality: right Qualified Code(s): L03.115 - Cellulitis of right lower limb (4) Coronary artery disease Qualifiers: Coronary Disease-Associated Artery/Lesion type: [place] artery [place] vs. transplanted heart: [place] heart Associated angina: with unstable angina Qualified Code(s): I25.110 - Atherosclerotic heart disease of [place] coronary artery with unstable angina pectoris (5) Hypertension Qualifiers: Hypertension type: essential hypertension Qualified Code(s): I10 - Essential (primary) hypertension
[2018-04-16] MEDS ORDERED: Docusate Sodium 100 MG Capsule PO PRN (21:00)
[2018-04-17 04:38] LABS: Baso # (Auto) 0.1 th/mm3 (0.0-0.2); Baso % (Auto) 0.6 % (0.0-2.0); Eos # (Auto) 0.4 th/mm3 (0.0-0.4); Hemoglobin 11.5 gm/dL (13.0-17.0); Lymph # (Auto) 2.7 th/mm3 (1.0-4.8); Lymph % (Auto) 14.7 % (9.0-44.0); Mean Corpuscular HGB Conc 34.9 % (32.0-36.0); Mean Corpuscular Hemoglobin 30.7 pg (27.0-34.0); Mean Corpuscular Volume 87.9 fL (80.0-100.0); Mono # (Auto) 1.2 th/mm3 (0.0-0.9); Mono % (Auto) 6.4 % (0.0-8.0); Neut # (Auto) 13.9 th/mm3 (1.8-7.7); Neut % (Auto) 76.3 % (16.0-70.0); Platelet Count 386 th/mm3 (150-450); Red Blood Count 3.75 mil/mm3 (4.50-5.90); Red Cell Distribution Width 13.5 % (11.6-17.2); White Blood Count 18.2 th/mm3 (4.0-11.0)
[2018-04-17 05:08] LABS: Albumin 2.6 g/dL (3.4-5.0); Anion Gap 8 meq/L (5-15); Aspartate Aminotransferase 24 U/L (15-37); Blood Urea Nitrogen 23 mg/dL (7-18); Carbon Dioxide 27.8 meq/L (21.0-32.0); Chloride 103 meq/L (98-107); Glomerular Filtration Rate 59 mL/min (>89); Glucose,Random 111 mg/dL (74-106); Magnesium 2.4 mg/dL (1.5-2.5); Potassium 4.1 meq/L (3.5-5.1); Sodium 139 meq/L (136-145)
[2018-04-17 05:19] LABS: Alanine Aminotransferase 32 U/L (12-78); Alkaline Phosphatase 65 U/L (45-117); Free T4 (Free Thyroxine) 1.33 ng/dL (0.76-1.46); Phosphorus 3.9 mg/dL (2.5-4.9); Total Protein 7.2 g/dL (6.4-8.2)
[2018-04-17] MEDS: Insulin NovoLOG Aspart Correctional Sugar Inj SQ SCH ×4 (08:46→21:35)
[2018-04-17] MEDS: Metoprolol Tartrate 50 MG Tablet PO SCH ×2 (08:49→20:39)
[2018-04-17] MEDS: Insulin Detemir Inj 1,000 UNIT/10 ML Vial SQ SCH ×2 (08:49→21:35)
[2018-04-17] MEDS: Lisinopril 10 MG Tablet PO SCH (08:49)
[2018-04-17] MEDS: glipiZIDE 10 MG Tablet PO SCH (08:51)
[2018-04-17] MEDS: Amiodarone 200 MG Tablet PO SCH ×2 (08:51→20:40)
[2018-04-17] MEDS: Multivitamin/Minerals Therapeutic Tablet PO SCH (08:51)
[2018-04-17] MEDS ORDERED: Polyethylene Glycol 3350 17 GM Packet PO PRN (09:00)
--- NOTE | 2018-04-17 11:28 | P.PNIM ---
Subjective Interval history: Follow-up CAD status post CABG x3 vessels. He is at the side of the bed appears in not acute distress. He is eating. No nausea vomiting no diarrhea or constipation. Says he has some chest pain the surgical site especially with coughing. He is not wheezing. No fever or chills. He is doing well on room air. He has been ambulating the hallway. 04-16 NO SOB, NO CHEST PAIN SITTING IN CHAIR HAS SOME SWELLING SOME SURGICAL SITE PAIN DW [facility] NOT CLEAR FOR DISCHARGE AM LABS ID ON CASE NOW HAD SURGERY ON 04-13 CABG x 3 BRIAN to LAd - good SVG to RI - good SVG to PDA - good EVH 04-17 being seen by ID SOME SWELLING AND ERYTHEMA IN RIGHT LE DW RN AND PT AND [facility] POSSIBLE DC TODAY Physical Exam Vital signs: Vital Signs 04/16/18 12:16 04/16/18 12:35 04/16/18 13:00 Temperature 98.1 F Pulse Rate 63 75 94 H Respiratory Rate 16 Blood Pressure 106/57 L Pulse Oximetry 04/16/18 14:11 04/16/18 15:02 04/16/18 16:00 Temperature 98.1 F Pulse Rate 77 82 88 Respiratory Rate 16 Blood Pressure 100/55 L Pulse Oximetry 97 04/16/18 16:28 04/16/18 17:01 04/16/18 18:30 Temperature Pulse Rate 80 89 95 H Respiratory Rate Blood Pressure Pulse Oximetry 04/16/18 19:00 04/16/18 20:00 04/16/18 20:03 Temperature 98.8 F Pulse Rate 92 H 92 H Respiratory Rate 20 Blood Pressure 97/60 L Pulse Oximetry 93 L 93 L 04/16/18 21:00 04/16/18 22:00 04/16/18 23:00 Temperature 97.8 F Pulse Rate 88 87 84 Respiratory Rate 20 Blood Pressure 102/59 L Pulse Oximetry 95 04/17/18 00:00 04/17/18 01:00 04/17/18 02:00 Temperature Pulse Rate 83 83 84 Respiratory Rate Blood Pressure Pulse Oximetry 04/17/18 03:00 04/17/18 04:00 04/17/18 05:00 Temperature 98 F Pulse Rate 80 56 L 89 Respiratory Rate 18 Blood Pressure 125/60 Pulse Oximetry 95 04/17/18 06:00 04/17/18 07:00 04/17/18 08:00 Temperature 97.8 F Pulse Rate 88 90 84 Respiratory Rate 20 Blood Pressure 138/71 Pulse Oximetry 96 04/17/18 09:00 04/17/18 10:00 04/17/18 10:50 Temperature 98.7 F Pulse Rate 94 H 89 94 H Respiratory Rate 20 Blood Pressure 107/58 L Pulse Oximetry 94 L 04/17/18 11:00 Temperature Pulse Rate 79 Respiratory Rate Blood Pressure Pulse Oximetry Intake & Output 04/16/18 04/17/18 04/17/18 18:59 06:59 18:59 Intake Total 960 / 960 Output Total 750 / 750 350 / 350 Balance 210 / 210 -350 / -350 Weight 126 kg Intake: Oral 960 / 960 Output: Urine 750 / 750 350 / 350 Other: # Voids 2 Date of Last Bowel Movement 04/16/18 04/16/18 04/16/18 # Bowel Movements 3 Narrative: GENERAL: Very pleasant 67-year-old male appears in not acute distress. CARDIOVASCULAR: Prevnar in place. Regular rate and rhythm. S1, S2 NO S3 OR S4 RESPIRATORY: No accessory muscle use. Clear to auscultation. Breath sounds equal bilaterally. GASTROINTESTINAL: Abdomen soft, non-tender, nondistended. Hepatic and splenic margins not palpable. MUSCULOSKELETAL: Extremities without clubbing, cyanosis, or edema. No obvious deformities. NEUROLOGICAL: Awake and alert. No obvious cranial nerve deficits. Motor grossly within normal limits. Five out of 5 muscle strength in the arms and legs. Normal speech. PSYCHIATRIC: Appropriate mood and affect; insight and judgment normal. - Urinary Catheter Management Indwelling Temp Sensing Catheter Cath placed during this visit: yes, but has since been removed by the nurse Reason for continuing: Continue criteria not met Insertion date: 04/13/18 Insertion time: 11:45 Removal date: 04/14/18 Removal time: 05:30 Results - Labs CBC & Chem 7: 04/17/18 04:03 04/17/18 04:03 Laboratory Results - last 24 hr 04/16/18 04/16/18 04/16/18 12:13 16:59 20:33 WBC RBC Hgb Hct MCV MCH MCHC RDW Plt Count MPV Neut % (Auto) Lymph % (Auto) [place] % (Auto) Eos % (Auto) Baso % (Auto) Neut # (Auto) Lymph # (Auto) [place] # (Auto) Eos # (Auto) Baso # (Auto) WBC Differential Differential Comment Sodium Potassium Chloride Carbon Dioxide Anion Gap BUN Creatinine Estimated GFR POC Glucose 161 H 83 100 Random Glucose Calcium Phosphorus Magnesium Total Bilirubin AST ALT Alkaline Phosphatase Total Protein Albumin TSH Free T4 04/17/18 04/17/18 04/17/18 04:03 04:03 07:32 WBC 18.2 H RBC 3.75 L Hgb 11.5 L Hct 33.0 L MCV 87.9 MCH 30.7 MCHC 34.9 RDW 13.5 Plt Count 386 MPV 8.0 Neut % (Auto) 76.3 H Lymph % (Auto) 14.7 [place] % (Auto) 6.4 Eos % (Auto) 2.0 Baso % (Auto) 0.6 Neut # (Auto) 13.9 H Lymph # (Auto) 2.7 [place] # (Auto) 1.2 H Eos # (Auto) 0.4 Baso # (Auto) 0.1 WBC Differential . Differential Comment Auto diff final Sodium 139 Potassium 4.1 Chloride 103 Carbon Dioxide 27.8 Anion Gap 8 BUN 23 H Creatinine 1.23 Estimated GFR 59 L POC Glucose 109 Random Glucose 111 H Calcium 8.0 L Phosphorus 3.9 D Magnesium 2.4 Total Bilirubin 0.7 AST 24 ALT 32 Alkaline Phosphatase 65 Total Protein 7.2 Albumin 2.6 L TSH 3.090 Free T4 1.33 04/17/18 11:12 WBC RBC Hgb Hct MCV MCH MCHC RDW Plt Count MPV Neut % (Auto) Lymph % (Auto) [place] % (Auto) Eos % (Auto) Baso % (Auto) Neut # (Auto) Lymph # (Auto) [place] # (Auto) Eos # (Auto) Baso # (Auto) WBC Differential Differential Comment Sodium Potassium Chloride Carbon Dioxide Anion Gap BUN Creatinine Estimated GFR POC Glucose 195 H Random Glucose Calcium Phosphorus Magnesium Total Bilirubin AST ALT Alkaline Phosphatase Total Protein Albumin TSH Free T4 Microbiology 04/15/18 Unknown Blood - Line Aerobic Blood Culture - Preliminary No growth in 2 days 04/15/18 Unknown Blood - Line Anaerobic Blood Culture - Preliminary No growth in 2 days 04/15/18 14:15 Blood - Line Aerobic Blood Culture - Preliminary No growth in 2 days 04/15/18 14:15 Blood - Line Anaerobic Blood Culture - Preliminary No growth in 2 days - Imaging ITS Impressions Carotid Doppler Study 04/08/18 13:14 CONCLUSION: 1. Right Internal Carotid Artery: Minimal atherosclerotic plaquing. No hemodynamically significant stenosis identified. 2. Left Internal Carotid Artery: Minimal atherosclerotic plaquing. No hemodynamically significant stenosis identified. Lower Extremity Ultrasound 04/08/18 13:14 CONCLUSION: 1. Vein mapping as above. Venous Doppler Study 04/08/18 13:14 CONCLUSION: The study is negative for bilateral lower extremity deep venous thrombosis. Chest X-Ray 04/16/18 06:00 CONCLUSION: No pneumothorax. - Procedures Cardiac catheterization and CABG 12-3 CABG x 3 BRIAN to LAd - good SVG to RI - good SVG to PDA - good EVH Assessment and Plan - Plan 67-year-old man with CAD- NSTEMI S/P cath with 2VD. CABG x3 vessels 12-3 Hypertension -Stable continue postoperative care with aspirin, Lipitor, lisinopril and pain management consult regarding narcotics -Cardiology ff -Dr. Kiana MAR Right lower extremity cellulitis - MAY BE REOCCURRING Blood cultures negative d/w ID 04/09 - continue on antibiotics- Ancef s/p VAncomycin Today has leukocytosis likely reactive. Repeat CBC in the morning and consider switching to p.o. antimicrobial. Blood cultures negative to date Right big toe, posterior aspect - superficial dry ulcer- no signs of infection - advise OP ff up with a Podiatry for routine podiatry care Diabetes mellitus, type 2 - Stable continue sliding scale and Levemir - here with our diet- good readings - continue Sliding scale insulin. - All hyperglycemic agents RESTARTED- as OP was on Metformin, glipizide and Januvia- ALSO ON LEVEMIR JESUS- resolved - good urine output - good po intake - Heplock. monitor BMP DVT prophylaxis: Heparin- off s/p surgery. Patient ambulatory Code Status: FULL CODE Discussed Condition With: RN AND PT AND CM AND [facility] Discharge Planning: WHEN CLEARED BY [facility] AND ID
--- NOTE | 2018-04-17 13:03 | P.PNCV ---
- Note Subjective/Hospital Course: A 67-year-old male with history of coronary artery disease, presented to the emergency room with chest pain, dyspnea with minimal to mild exertion. He had a near syncopal episode at home when he was trying to get up to the bathroom. He also has been complaining of some swelling and erythema and pain to his right lower extremity. Denied having any injury or any kind of insect bites. His troponins were elevated. He underwent cardiac catheterization, which showed ejection fraction of 50%, mild to moderate disease of the proximal LAD and the right coronary artery. The right coronary artery was diffusely diseased, basically totally occluded at the ostium. There were left to right collaterals. Left main disease of 50%, IVUS was completed for the left main, which showed 60%. We were consulted to evaluate for coronary artery bypass grafting. PAST MEDICAL HISTORY: Includes coronary artery disease, prior stenting 2005 and then also another cardiac catheterization in 2008 where he underwent 2 stents to the proximal and mid RCA, diabetes mellitus, hypertension, sleep apnea. He had a TIA in 2005, hyperlipidemia. 04/09 pt seen and evaluated by ID ok for surgery , not to use RLE for harvesting continue IV antibiotics for now right leg has been improving daily carotid US unremarkable lower ext doppler, no DVT 04/10 waiting for surgery 04/13 for surgery today right leg cellulitis greatly improved surgery same Date of procedure: 04/13/18 Procedure: CABG x 3 BRIAN to LAd - good SVG to RI - good SVG to PDA - good EVH extubated after surgery 2000cc crystalloid, 500cc cell saver 04/14 up in chair doing well right leg improving daily continue ABX for now add low dose BB levemir to wean insulin gtt transfer to stepdown 04/15 increasing leukocytosis, low grade fever, right leg improving daily will however recheck blood cultures and UA then DC CVC line , pt has received post op Ancef BP and HR elevated meds adjusted for BP and HR chest tube dc without difficulty check post CXT today 04/16 CXR unremarkable , WBC trending down right leg swelling and erythema worsening re-consulted ID, appreciate assistance Antibiotic changed Blood cultures pending BP and HR improved 04/17 04/17 no further loose stools on room air , right leg relatively unchanged from yesterday WBC continue to trend down , no fevers , Blood cultures neg no further loose stools await final input from ID regarding antibiotics for recent right leg cellulitis when cleared , can dc home from [facility] standpoint, will need to continue the amiodarone x 14 days Objective: Vital Signs - 24 hr 04/16/18 13:00 04/16/18 14:11 04/16/18 15:02 Temperature Pulse Rate 94 H 77 82 Respiratory Rate Blood Pressure Pulse Oximetry 04/16/18 16:00 04/16/18 16:28 04/16/18 17:01 Temperature 98.1 F Pulse Rate 88 80 89 Respiratory Rate 16 Blood Pressure 100/55 L Pulse Oximetry 97 04/16/18 18:30 04/16/18 19:00 04/16/18 20:00 Temperature 98.8 F Pulse Rate 95 H 92 H 92 H Respiratory Rate 20 Blood Pressure 97/60 L Pulse Oximetry 93 L 04/16/18 20:03 04/16/18 21:00 04/16/18 22:00 Temperature Pulse Rate 88 87 Respiratory Rate Blood Pressure Pulse Oximetry 93 L 04/16/18 23:00 04/17/18 00:00 04/17/18 01:00 Temperature 97.8 F Pulse Rate 84 83 83 Respiratory Rate 20 Blood Pressure 102/59 L Pulse Oximetry 95 04/17/18 02:00 04/17/18 03:00 04/17/18 04:00 Temperature 98 F Pulse Rate 84 80 56 L Respiratory Rate 18 Blood Pressure 125/60 Pulse Oximetry 95 04/17/18 05:00 04/17/18 06:00 04/17/18 07:00 Temperature 97.8 F Pulse Rate 89 88 90 Respiratory Rate 20 Blood Pressure 138/71 Pulse Oximetry 96 04/17/18 08:00 04/17/18 09:00 04/17/18 10:00 Temperature Pulse Rate 84 94 H 89 Respiratory Rate Blood Pressure Pulse Oximetry 04/17/18 10:50 04/17/18 11:00 04/17/18 12:00 Temperature 98.7 F Pulse Rate 94 H 79 97 H Respiratory Rate 20 Blood Pressure 107/58 L Pulse Oximetry 94 L GENERAL: A&O x 3 SKIN: Warm and dry. prevena dressing to chest , left leg incision intact HEAD: Normocephalic. right leg mild erythema and mild swelling EYES: No scleral icterus. No injection or drainage. NECK: Supple, trachea midline. No JVD or lymphadenopathy. CARDIOVASCULAR: Regular rate and rhythm without murmurs, gallops, or rubs. RESPIRATORY: Breath sounds equal bilaterally. No accessory muscle use. GASTROINTESTINAL: Abdomen soft, non-tender, nondistended. MUSCULOSKELETAL: No cyanosis, or edema. BACK: Nontender without obvious deformity. No CVA tenderness. Labs: Laboratory Results - last 12 hr 04/17/18 04/17/18 04/17/18 04:03 04:03 07:32 WBC 18.2 H RBC 3.75 L Hgb 11.5 L Hct 33.0 L MCV 87.9 MCH 30.7 MCHC 34.9 RDW 13.5 Plt Count 386 MPV 8.0 Neut % (Auto) 76.3 H Lymph % (Auto) 14.7 Bailey % (Auto) 6.4 Eos % (Auto) 2.0 Baso % (Auto) 0.6 Neut # (Auto) 13.9 H Lymph # (Auto) 2.7 Bailey # (Auto) 1.2 H Eos # (Auto) 0.4 Baso # (Auto) 0.1 WBC Differential . Differential Comment Auto diff final Sodium 139 Potassium 4.1 Chloride 103 Carbon Dioxide 27.8 Anion Gap 8 BUN 23 H Creatinine 1.23 Estimated GFR 59 L POC Glucose 109 Random Glucose 111 H Calcium 8.0 L Phosphorus 3.9 D Magnesium 2.4 Total Bilirubin 0.7 AST 24 ALT 32 Alkaline Phosphatase 65 Total Protein 7.2 Albumin 2.6 L TSH 3.090 Free T4 1.33 04/17/18 11:12 WBC RBC Hgb Hct MCV MCH MCHC RDW Plt Count MPV Neut % (Auto) Lymph % (Auto) Bailey % (Auto) Eos % (Auto) Baso % (Auto) Neut # (Auto) Lymph # (Auto) Bailey # (Auto) Eos # (Auto) Baso # (Auto) WBC Differential Differential Comment Sodium Potassium Chloride Carbon Dioxide Anion Gap BUN Creatinine Estimated GFR POC Glucose 195 H Random Glucose Calcium Phosphorus Magnesium Total Bilirubin AST ALT Alkaline Phosphatase Total Protein Albumin TSH Free T4 Result Diagrams: 04/17/18 04:03 04/17/18 04:03 - Plan (1) S/P CABG (coronary artery bypass graft) Plan: RESP: ezpap acapella on room air CV: BB , , on amiodarone GI: protonix, ENDO: , Bid levemir ID: right leg cellultis ID re-consulted await final input regarding need for discharge antibiotics and follow up Blood cultures neg CM to eval for HHC (3) Cellulitis Plan: on antibiotics/ improved on ancef IV repeat blood cultures UA (4) Coronary artery disease (5) Hypertension (3) Cellulitis Qualifiers: Site of cellulitis: extremity Site of cellulitis of extremity: lower extremity Laterality: right Qualified Code(s): L03.115 - Cellulitis of right lower limb (4) Coronary artery disease Qualifiers: Coronary Disease-Associated Artery/Lesion type: nikolai artery [place] vs. transplanted heart: nikolai heart Associated angina: with unstable angina Qualified Code(s): I25.110 - Atherosclerotic heart disease of nikolai coronary artery with unstable angina pectoris (5) Hypertension Qualifiers: Hypertension type: essential hypertension Qualified Code(s): I10 - Essential (primary) hypertension
--- NOTE | 2018-04-17 18:05 | P.PNID ---
Subjective Remarks: sp CABG x 3 on 04/13/18 low grade temp noted yday up to 100.5 c/o liquid BMs, 5 in the last 24 hrs denies abd pain or cramps + unformed stools c/o swellling, pain RLE Allergies/Adverse Reactions: Allergies No Known Allergies Allergy (Verified 04/07/18 14:41) Objective Vital Signs 04/16/18 18:30 04/16/18 19:00 04/16/18 20:00 Temperature 98.8 F Pulse Rate 95 H 92 H 92 H Respiratory Rate 20 Blood Pressure 97/60 L Pulse Oximetry 93 L 04/16/18 20:03 04/16/18 21:00 04/16/18 22:00 Temperature Pulse Rate 88 87 Respiratory Rate Blood Pressure Pulse Oximetry 93 L 04/16/18 23:00 04/17/18 00:00 04/17/18 01:00 Temperature 97.8 F Pulse Rate 84 83 83 Respiratory Rate 20 Blood Pressure 102/59 L Pulse Oximetry 95 04/17/18 02:00 04/17/18 03:00 04/17/18 04:00 Temperature 98 F Pulse Rate 84 80 56 L Respiratory Rate 18 Blood Pressure 125/60 Pulse Oximetry 95 04/17/18 05:00 04/17/18 06:00 04/17/18 07:00 Temperature 97.8 F Pulse Rate 89 88 90 Respiratory Rate 20 Blood Pressure 138/71 Pulse Oximetry 96 04/17/18 08:00 04/17/18 09:00 04/17/18 10:00 Temperature Pulse Rate 84 94 H 89 Respiratory Rate Blood Pressure Pulse Oximetry 04/17/18 10:50 04/17/18 11:00 04/17/18 12:00 Temperature 98.7 F Pulse Rate 94 H 79 97 H Respiratory Rate 20 Blood Pressure 107/58 L Pulse Oximetry 94 L 04/17/18 13:00 04/17/18 14:00 04/17/18 15:00 Temperature 97.8 F Pulse Rate 73 77 78 Respiratory Rate 20 Blood Pressure 118/59 L Pulse Oximetry 97 04/17/18 16:00 04/17/18 17:00 Temperature Pulse Rate 84 94 H Respiratory Rate Blood Pressure Pulse Oximetry Intake & Output 04/16/18 04/17/18 04/17/18 18:59 06:59 18:59 Intake Total 960 / 960 960 / 960 Output Total 750 / 750 350 / 350 550 / 550 Balance 210 / 210 -350 / -350 410 / 410 Weight 126 kg Intake: Oral 960 / 960 960 / 960 Output: Urine 750 / 750 350 / 350 550 / 550 Other: # Voids 2 Date of Last Bowel Movement 04/16/18 04/16/18 04/17/18 # Bowel Movements 3 1 04/15/18 Unknown Blood - Line Aerobic Blood Culture - Preliminary No growth in 2 days 04/15/18 Unknown Blood - Line Anaerobic Blood Culture - Preliminary No growth in 2 days 04/15/18 14:15 Blood - Line Aerobic Blood Culture - Preliminary No growth in 2 days 04/15/18 14:15 Blood - Line Anaerobic Blood Culture - Preliminary No growth in 2 days Lab - Hematology Results 04/16/18 04/17/18 05:02 04:03 WBC 20.4 H 18.2 H RBC 3.90 L 3.75 L Hgb 11.9 L 11.5 L Hct 35.4 L 33.0 L MCV 90.9 87.9 MCH 30.5 30.7 MCHC 33.6 34.9 RDW 13.8 13.5 Plt Count 342 386 MPV 8.0 8.0 Neut % (Auto) 76.3 H Lymph % (Auto) 14.7 Buchanan % (Auto) 6.4 Eos % (Auto) 2.0 Baso % (Auto) 0.6 Neut # (Auto) 13.9 H Lymph # (Auto) 2.7 [place]anan # (Auto) 1.2 H Eos # (Auto) 0.4 Baso # (Auto) 0.1 WBC Differential . Differential Comment Auto diff final Lab - Chemistry Results 04/15/18 04/16/18 04/16/18 19:27 05:02 07:45 Sodium 138 Potassium 4.7 D Chloride 103 Carbon Dioxide 28.4 Anion Gap 7 BUN 15 Creatinine 1.02 Estimated GFR 73 L POC Glucose 157 H 145 H Random Glucose 147 H Hemoglobin A1c Calcium 8.4 L Phosphorus 2.6 Magnesium 2.3 Total Bilirubin AST ALT Alkaline Phosphatase Total Protein Albumin TSH Free T4 04/16/18 04/16/18 04/16/18 12:13 16:59 20:33 Sodium Potassium Chloride Carbon Dioxide Anion Gap BUN Creatinine Estimated GFR POC Glucose 161 H 83 100 Random Glucose Hemoglobin A1c Calcium Phosphorus Magnesium Total Bilirubin AST ALT Alkaline Phosphatase Total Protein Albumin TSH Free T4 04/17/18 04/17/18 04/17/18 04:03 04:03 07:32 Sodium 139 Potassium 4.1 Chloride 103 Carbon Dioxide 27.8 Anion Gap 8 BUN 23 H Creatinine 1.23 Estimated GFR 59 L POC Glucose 109 Random Glucose 111 H Hemoglobin A1c 7.0 H Calcium 8.0 L Phosphorus 3.9 D Magnesium 2.4 Total Bilirubin 0.7 AST 24 ALT 32 Alkaline Phosphatase 65 Total Protein 7.2 Albumin 2.6 L TSH 3.090 Free T4 1.33 04/17/18 04/17/18 11:12 17:02 Sodium Potassium Chloride Carbon Dioxide Anion Gap BUN Creatinine Estimated GFR POC Glucose 195 H 97 Random Glucose Hemoglobin A1c Calcium Phosphorus Magnesium Total Bilirubin AST ALT Alkaline Phosphatase Total Protein Albumin TSH Free T4 Imaging: ITS Impressions Carotid Doppler Study 04/08/18 13:14 CONCLUSION: 1. Right Internal Carotid Artery: Minimal atherosclerotic plaquing. No hemodynamically significant stenosis identified. 2. Left Internal Carotid Artery: Minimal atherosclerotic plaquing. No hemodynamically significant stenosis identified. Lower Extremity Ultrasound 04/08/18 13:14 CONCLUSION: 1. Vein mapping as above. Venous Doppler Study 04/08/18 13:14 CONCLUSION: The study is negative for bilateral lower extremity deep venous thrombosis. Chest X-Ray 04/16/18 06:00 CONCLUSION: No pneumothorax. Physical Exam: GENERAL: NAD SKIN: Warm and dry. NO rash HEAD: Atraumatic. Normocephalic. EYES: Pupils equal and round. No scleral icterus. No injection or drainage. ENT: No nasal bleeding or discharge. Mucous membranes pink and moist. NECK: Trachea midline. No JVD. CARDIOVASCULAR: Regular rate and rhythm. Dressing in place RESPIRATORY: No accessory muscle use. Clear to auscultation. Breath sounds equal bilaterally. GASTROINTESTINAL: Abdomen soft, non-tender, nondistended. Hepatic and splenic margins not palpable. MUSCULOSKELETAL: Extremities without clubbing, cyanosis, RLE: tight edema non pitting no erythema + chronic appearing hyperpigmentation L posterior thigh ecchymoses, hematome NEUROLOGICAL: Awake and alert. Non focal . Normal speech. PSYCHIATRIC: Appropriate mood and affect; . Assessment and Plan - Plan RLE cellulitis, resolved sp tx CAD, sp CABG New issue leukocytosis, ? post op ? infx - CXR neg -UA neg - only c/o liquid stool . + abx use Abx associated diarrhea RLE edema Leukocyto chk c. diff fu bl clx untill final
--- NOTE | 2018-04-17 21:30 | US ---
EXAM DATE: 04/17/2018 9:28 PM EST AGE/SEX: 67 years / Male INDICATIONS: Right leg swelling. CLINICAL DATA: This is the patient's initial encounter. Patient reports that signs and symptoms have been present for 3 weeks and indicates a pain score of 0/10. MEDICAL/SURGICAL HISTORY: Hypertension. Coronary artery disease. Diabetes. Cerebrovascular acci dent. Hyperlipidemia. Coronary artery stent. [place] [facility] [place]/08/[place]. . TECHNIQUE: Venous ultrasound of both lower extremities was performed from the inguinal ligament to t he proximal calf. Real-time, color Doppler and spectral tracing, compression and augmentation techni ques were used. FINDINGS: Normal compression of the deep venous system from the inguinal region to the proximal calf . No echogenic clot is seen. Normal response of the venous system to augmentation and respiration. CONCLUSION: Negative study. No venous thrombosis of the right lower extremity. Electronically signed by: Nile Azul MD 04/17/2018 9:28 PM EST
[2018-04-18 03:51] VITALS: RESP 18
[2018-04-18 05:13] LABS: Baso # (Auto) 0.1 th/mm3 (0.0-0.2); Baso % (Auto) 0.9 % (0.0-2.0); Eos # (Auto) 0.5 th/mm3 (0.0-0.4); Eos % (Auto) 3.6 % (0.0-4.0); Hematocrit 33.8 % (39.0-51.0); Hemoglobin 11.8 gm/dL (13.0-17.0); Lymph # (Auto) 2.6 th/mm3 (1.0-4.8); Lymph % (Auto) 17.8 % (9.0-44.0); Mean Corpuscular HGB Conc 34.8 % (32.0-36.0); Mean Corpuscular Hemoglobin 30.9 pg (27.0-34.0); Mean Corpuscular Volume 88.6 fL (80.0-100.0); Mean Platelet Volume 8.3 fL (7.0-11.0); Mono # (Auto) 1.1 th/mm3 (0.0-0.9); Mono % (Auto) 7.5 % (0.0-8.0); Neut # (Auto) 10.4 th/mm3 (1.8-7.7); Neut % (Auto) 70.2 % (16.0-70.0); Platelet Count 373 th/mm3 (150-450); Red Blood Count 3.81 mil/mm3 (4.50-5.90); Red Cell Distribution Width 13.8 % (11.6-17.2); White Blood Count 14.8 th/mm3 (4.0-11.0)
[2018-04-18 05:24] LABS: Albumin 2.5 g/dL (3.4-5.0); Anion Gap 7 meq/L (5-15); Aspartate Aminotransferase 28 U/L (15-37); Blood Urea Nitrogen 24 mg/dL (7-18); Calcium 8.1 mg/dL (8.5-10.1); Carbon Dioxide 28.8 meq/L (21.0-32.0); Chloride 103 meq/L (98-107); Glomerular Filtration Rate 57 mL/min (>89); Glucose,Random 96 mg/dL (74-106); Magnesium 2.3 mg/dL (1.5-2.5); Potassium 3.9 meq/L (3.5-5.1); Sodium 139 meq/L (136-145)
[2018-04-18 05:28] LABS: Alanine Aminotransferase 43 U/L (12-78); Alkaline Phosphatase 65 U/L (45-117); Phosphorus 4.3 mg/dL (2.5-4.9); Total Protein 7.1 g/dL (6.4-8.2)
[2018-04-18] MEDS: Multivitamin/Minerals Therapeutic Tablet PO SCH (08:20)
[2018-04-18] MEDS: glipiZIDE 10 MG Tablet PO SCH (08:20)
[2018-04-18] MEDS: Lisinopril 10 MG Tablet PO SCH (08:20)
[2018-04-18] MEDS: Insulin Detemir Inj 1,000 UNIT/10 ML Vial SQ SCH (08:21)
[2018-04-18] MEDS: Amiodarone 200 MG Tablet PO SCH (08:21)
[2018-04-18] MEDS: Insulin NovoLOG Aspart Correctional Sugar Inj SQ SCH ×2 (08:21→12:40)
[2018-04-18] MEDS: Metoprolol Tartrate 50 MG Tablet PO SCH (08:21)
--- NOTE | 2018-04-18 10:13 | P.PNIM ---
Subjective Interval history: Follow-up CAD status post CABG x3 vessels. He is at the side of the bed appears in not acute distress. He is eating. No nausea vomiting no diarrhea or constipation. Says he has some chest pain the surgical site especially with coughing. He is not wheezing. No fever or chills. He is doing well on room air. He has been ambulating the hallway. 04-16 NO SOB, NO CHEST PAIN SITTING IN CHAIR HAS SOME SWELLING SOME SURGICAL SITE PAIN DW [facility] NOT CLEAR FOR DISCHARGE AM LABS ID ON CASE NOW HAD SURGERY ON 04-13 CABG x 3 BRIAN to LAd - good SVG to RI - good SVG to PDA - good EVH 04-17 being seen by ID SOME SWELLING AND ERYTHEMA IN RIGHT LE DW RN AND PT AND [facility] POSSIBLE DC TODAY 04-18 LEGS LOOK BETTER LEUKOCYTOSIS TRENDING DOWN CLEARED BY [facility] NOT ON ANY ANTIBIOTICS WILL DC TO HOME TODAY THE [facility] IF ABLE TO ARRANGE Physical Exam Vital signs: Vital Signs 04/17/18 10:50 04/17/18 11:00 04/17/18 12:00 Temperature 98.7 F Pulse Rate 94 H 79 97 H Respiratory Rate 20 Blood Pressure 107/58 L Pulse Oximetry 94 L 04/17/18 13:00 04/17/18 14:00 04/17/18 15:00 Temperature 97.8 F Pulse Rate 73 77 78 Respiratory Rate 20 Blood Pressure 118/59 L Pulse Oximetry 97 04/17/18 16:00 04/17/18 17:00 04/17/18 18:00 Temperature Pulse Rate 84 94 H 87 Respiratory Rate Blood Pressure Pulse Oximetry 04/17/18 19:00 04/17/18 20:00 04/17/18 21:00 Temperature 97.8 F Pulse Rate 90 92 H 90 Respiratory Rate 18 Blood Pressure 116/57 L Pulse Oximetry 95 95 04/17/18 22:00 04/17/18 23:00 04/18/18 00:00 Temperature 99.7 F H Pulse Rate 70 75 76 Respiratory Rate 20 Blood Pressure 121/57 L Pulse Oximetry 96 04/18/18 01:00 04/18/18 02:00 04/18/18 03:00 Temperature 98.1 F Pulse Rate 86 84 85 Respiratory Rate 18 Blood Pressure 114/64 Pulse Oximetry 96 04/18/18 04:00 04/18/18 05:00 04/18/18 06:00 Temperature Pulse Rate 84 88 150 H Respiratory Rate Blood Pressure Pulse Oximetry 04/18/18 07:00 04/18/18 08:00 Temperature 97.8 F Pulse Rate 90 Respiratory Rate 18 Blood Pressure 120/66 Pulse Oximetry 94 L 96 Intake & Output 04/17/18 04/18/18 04/18/18 18:59 06:59 18:59 Intake Total 960 / 960 Output Total 550 / 550 300 / 300 Balance 410 / 410 -300 / -300 Weight 127 kg Intake: Oral 960 / 960 Output: Urine 550 / 550 300 / 300 Other: # Voids 2 Date of Last Bowel Movement 04/17/18 04/16/18 04/17/18 # Bowel Movements 1 Narrative: GENERAL: Very pleasant 67-year-old male appears in not acute distress. CARDIOVASCULAR: Prevnar in place. Regular rate and rhythm. S1, S2 NO S3 OR S4 RESPIRATORY: No accessory muscle use. Clear to auscultation. Breath sounds equal bilaterally. GASTROINTESTINAL: Abdomen soft, non-tender, nondistended. Hepatic and splenic margins not palpable. MUSCULOSKELETAL: Extremities without clubbing, cyanosis, or edema. No obvious deformities. NEUROLOGICAL: Awake and alert. No obvious cranial nerve deficits. Motor grossly within normal limits. Five out of 5 muscle strength in the arms and legs. Normal speech. PSYCHIATRIC: Appropriate mood and affect; insight and judgment normal. - Urinary Catheter Management Indwelling Temp Sensing Catheter Cath placed during this visit: yes, but has since been removed by the nurse Reason for continuing: Continue criteria not met Insertion date: 04/13/18 Insertion time: 11:45 Removal date: 04/14/18 Removal time: 05:30 Results - Labs CBC & Chem 7: 04/18/18 04:10 04/18/18 04:10 Laboratory Results - last 24 hr 04/17/18 04/17/18 04/17/18 04:03 11:12 17:02 WBC RBC Hgb Hct MCV MCH MCHC RDW Plt Count MPV Neut % (Auto) Lymph % (Auto) Weber % (Auto) Eos % (Auto) Baso % (Auto) Neut # (Auto) Lymph # (Auto) Weber # (Auto) Eos # (Auto) Baso # (Auto) WBC Differential Differential Comment Sodium Potassium Chloride Carbon Dioxide Anion Gap BUN Creatinine Estimated GFR POC Glucose 195 H 97 Random Glucose Hemoglobin A1c 7.0 H Calcium Phosphorus Magnesium Total Bilirubin AST ALT Alkaline Phosphatase Total Protein Albumin Stl C.difficile DNA Amp St C. diff Tox Epid 027 04/17/18 04/17/18 04/18/18 17:07 20:42 04:10 WBC 14.8 H RBC 3.81 L Hgb 11.8 L Hct 33.8 L MCV 88.6 MCH 30.9 MCHC 34.8 RDW 13.8 Plt Count 373 MPV 8.3 Neut % (Auto) 70.2 H Lymph % (Auto) 17.8 Weber % (Auto) 7.5 Eos % (Auto) 3.6 Baso % (Auto) 0.9 Neut # (Auto) 10.4 H Lymph # (Auto) 2.6 Weber # (Auto) 1.1 H Eos # (Auto) 0.5 H Baso # (Auto) 0.1 WBC Differential . Differential Comment Auto diff final Sodium Potassium Chloride Carbon Dioxide Anion Gap BUN Creatinine Estimated GFR POC Glucose 136 H Random Glucose Hemoglobin A1c Calcium Phosphorus Magnesium Total Bilirubin AST ALT Alkaline Phosphatase Total Protein Albumin Stl C.difficile DNA Amp Negative St C. diff Tox Epid 027 Negative 04/18/18 04/18/18 04:10 08:19 WBC RBC Hgb Hct MCV MCH MCHC RDW Plt Count MPV Neut % (Auto) Lymph % (Auto) Weber % (Auto) Eos % (Auto) Baso % (Auto) Neut # (Auto) Lymph # (Auto) Weber # (Auto) Eos # (Auto) Baso # (Auto) WBC Differential Differential Comment Sodium 139 Potassium 3.9 Chloride 103 Carbon Dioxide 28.8 Anion Gap 7 BUN 24 H Creatinine 1.26 Estimated GFR 57 L POC Glucose 112 H Random Glucose 96 Hemoglobin A1c Calcium 8.1 L Phosphorus 4.3 Magnesium 2.3 Total Bilirubin 0.6 AST 28 ALT 43 Alkaline Phosphatase 65 Total Protein 7.1 Albumin 2.5 L Stl C.difficile DNA Amp St C. diff Tox Epid 027 Microbiology 04/15/18 Unknown Blood - Line Aerobic Blood Culture - Preliminary No growth in 2 days 04/15/18 Unknown Blood - Line Anaerobic Blood Culture - Preliminary No growth in 2 days 04/15/18 14:15 Blood - Line Aerobic Blood Culture - Preliminary No growth in 2 days 04/15/18 14:15 Blood - Line Anaerobic Blood Culture - Preliminary No growth in 2 days - Imaging Impressions Venous Doppler Study 04/17/18 00:00 CONCLUSION: Negative study. No venous thrombosis of the right lower extremity. - Procedures Cardiac catheterization and CABG 12-3 CABG x 3 BRIAN to LAd - good SVG to RI - good SVG to PDA - good EVH Assessment and Plan - Plan 67-year-old man with CAD- NSTEMI S/P cath with 2VD. CABG x3 vessels 12-3 Hypertension -Stable continue postoperative care with aspirin, Lipitor, lisinopril and pain management consult regarding narcotics -Cardiology ff -Dr. Kiana MAR Right lower extremity cellulitis - MAY BE REOCCURRING Blood cultures negative d/w ID 04/09 - continue on antibiotics- Ancef s/p VAncomycin Today has leukocytosis likely reactive. Repeat CBC in the morning and consider switching to p.o. antimicrobial. Blood cultures negative to date Right big toe, posterior aspect - superficial dry ulcer- no signs of infection - advise OP ff up with a Podiatry for routine podiatry care Diabetes mellitus, type 2 - Stable continue sliding scale and Levemir - here with our diet- good readings - continue Sliding scale insulin. - All hyperglycemic agents RESTARTED- as OP was on Metformin, glipizide and Januvia- ALSO ON LEVEMIR JESUS- resolved - good urine output - good po intake - Heplock. monitor BMP LEUKOCYTOSIS IMPROVING SUSPECT REACTIVE POST SURGERY DC TO HOME ON NO ANTIBIOTICS DVT prophylaxis: Heparin- off s/p surgery. Patient ambulatory DC TO HOME TODAY SEE MED REC DW RN AND PT AND ELIZABETH AND ISABELA Code Status: FULL CODE Discussed Condition With: RN AND PT AND [facility] Discharge Planning: WHEN CLEARED BY [facility] AND ID
--- NOTE | 2018-04-18 10:24 | P.DS ---
Date of admission: 04/06/18 20:17 Primary care physician: PROVIDER NON STAFF Attending physician on discharge: Yonatan Jodran Anticipated date of discharge: 04/18/18 Brief History from admission: 67-year-old male with a past medical history significant for coronary artery disease status post stent placement x3, history of CVA, hypertension, hyperlipidemia and diabetes mellitus presents to the emergency department for the evaluation of a red, swollen, warm right lower extremity. The patient reports that approximately 48 hours ago his leg became red and the redness and swelling has increased since that time. He endorses associated subjective fevers and chills. He also complains of chest pain and shortness of breath that started Friday and stopped on Friday. He denies any current chest pain or shortness of breath. No recent diaphoretic episodes. No abdominal pain. No nausea/vomiting/diarrhea. No focal neurologic deficits. Patient update on day of discharge: Follow-up CAD status post CABG x3 vessels. He is at the side of the bed appears in not acute distress. He is eating. No nausea vomiting no diarrhea or constipation. Says he has some chest pain the surgical site especially with coughing. He is not wheezing. No fever or chills. He is doing well on room air. He has been ambulating the hallway. 12-6 NO SOB, NO CHEST PAIN SITTING IN CHAIR HAS SOME SWELLING SOME SURGICAL SITE PAIN DW [facility] NOT CLEAR FOR DISCHARGE AM LABS ID ON CASE NOW HAD SURGERY ON 12-3 CABG x 3 BRIAN to LAd - good SVG to RI - good SVG to PDA - good EVH 12-7 being seen by ID SOME SWELLING AND ERYTHEMA IN RIGHT LE DW RN AND PT AND [facility] POSSIBLE DC TODAY 12-8 LEGS LOOK BETTER LEUKOCYTOSIS TRENDING DOWN CLEARED BY [facility] NOT ON ANY ANTIBIOTICS WILL DC TO HOME TODAY [facility] IF ABLE TO ARRANGE DS: Diagnosis - Discharge Diagnosis (1) Acute non-ST elevation myocardial infarction (NSTEMI) Status: Acute (2) Cellulitis Status: Resolved (3) Coronary artery disease Status: Acute (4) S/P CABG (coronary artery bypass graft) Status: Acute (5) Dyslipidemia Status: Chronic (6) Hypertension Status: Chronic DS: Medications - Discharge Medications Prescriptions: amiodarone 200 mg PO Q12HR #28 tab aspirin 81 mg PO DAILY #30 tab atorvastatin 40 mg PO DAILY #30 tab glipizide 10 mg PO DAILY #30 tab glipizide 5 mg PO DAILY #30 tab lisinopril 20 mg PO DAILY #30 tab metformin [Glucophage] 1,500 mg PO QPM #90 tab metoprolol tartrate 50 mg PO BID #60 tab tcijvxgo-[id number]-[id number]-calcium-mins [Thera M Plus (ferrous fumarat)] 1 tab PO DAILY # 30 tab sitagliptin [Januvia] 100 mg PO DAILY #30 tab DS: Summary Hospital Course: Follow-up CAD status post CABG x3 vessels. He is at the side of the bed appears in not acute distress. He is eating. No nausea vomiting no diarrhea or constipation. Says he has some chest pain the surgical site especially with coughing. He is not wheezing. No fever or chills. He is doing well on room air. He has been ambulating the hallway. 04-16 NO SOB, NO CHEST PAIN SITTING IN CHAIR HAS SOME SWELLING SOME SURGICAL SITE PAIN DW [facility] NOT CLEAR FOR DISCHARGE AM LABS ID ON CASE NOW HAD SURGERY ON -3 CABG x 3 BRIAN to LAd - good SVG to RI - good SVG to PDA - good EVH 04-17 being seen by ID SOME SWELLING AND ERYTHEMA IN RIGHT LE DW RN AND PT AND [facility] POSSIBLE DC TODAY 04-18 LEGS LOOK BETTER LEUKOCYTOSIS TRENDING DOWN CLEARED BY [facility] NOT ON ANY ANTIBIOTICS WILL DC TO HOME TODAY [facility] IF ABLE TO ARRANGE - Time Spent with Patient Total time spent providing and/or coordinating discharge services: Greater than 30 minutes - Quality: VTE Deep Vein Thrombosis/Pulmonary Embolism Present on Admission: No Exam Vital signs: Vital Signs 04/17/18 10:50 04/17/18 11:00 04/17/18 12:00 Temperature 98.7 F Pulse Rate 94 H 79 97 H Respiratory Rate 20 Blood Pressure 107/58 L Pulse Oximetry 94 L 04/17/18 13:00 04/17/18 14:00 04/17/18 15:00 Temperature 97.8 F Pulse Rate 73 77 78 Respiratory Rate 20 Blood Pressure 118/59 L Pulse Oximetry 97 04/17/18 16:00 04/17/18 17:00 04/17/18 18:00 Temperature Pulse Rate 84 94 H 87 Respiratory Rate Blood Pressure Pulse Oximetry 04/17/18 19:00 04/17/18 20:00 04/17/18 21:00 Temperature 97.8 F Pulse Rate 90 92 H 90 Respiratory Rate 18 Blood Pressure 116/57 L Pulse Oximetry 95 95 04/17/18 22:00 04/17/18 23:00 04/18/18 00:00 Temperature 99.7 F H Pulse Rate 70 75 76 Respiratory Rate 20 Blood Pressure 121/57 L Pulse Oximetry 96 04/18/18 01:00 04/18/18 02:00 04/18/18 03:00 Temperature 98.1 F Pulse Rate 86 84 85 Respiratory Rate 18 Blood Pressure 114/64 Pulse Oximetry 96 04/18/18 04:00 04/18/18 05:00 04/18/18 06:00 Temperature Pulse Rate 84 88 150 H Respiratory Rate Blood Pressure Pulse Oximetry 04/18/18 07:00 04/18/18 08:00 Temperature 97.8 F Pulse Rate 90 Respiratory Rate 18 Blood Pressure 120/66 Pulse Oximetry 94 L 96 Intake & Output 04/17/18 04/18/18 04/18/18 18:59 06:59 18:59 Intake Total 960 / 960 Output Total 550 / 550 300 / 300 Balance 410 / 410 -300 / -300 Weight 127 kg Intake: Oral 960 / 960 Output: Urine 550 / 550 300 / 300 Other: # Voids 2 Date of Last Bowel Movement 04/17/18 04/16/18 04/17/18 # Bowel Movements 1 Narrative: GENERAL: Very pleasant 67-year-old male appears in not acute distress. CARDIOVASCULAR: Prevnar in place. Regular rate and rhythm. S1, S2 NO S3 OR S4 RESPIRATORY: No accessory muscle use. Clear to auscultation. Breath sounds equal bilaterally. GASTROINTESTINAL: Abdomen soft, non-tender, nondistended. Hepatic and splenic margins not palpable. MUSCULOSKELETAL: Extremities without clubbing, cyanosis, or edema. No obvious deformities. NEUROLOGICAL: Awake and alert. No obvious cranial nerve deficits. Motor grossly within normal limits. Five out of 5 muscle strength in the arms and legs. Normal speech. PSYCHIATRIC: Appropriate mood and affect; insight and judgment normal. Results Procedures completed during hospitalization: Cardiac catheterization and CABG 12-3 CABG x 3 BRIAN to LAd - good SVG to RI - good SVG to PDA - good EVH Completed studies during hospitalization: Laboratory Results WBC 14.8 th/mm3 (4.0-11.0) H 04/18/18 04:10 RBC 3.81 mil/mm3 (4.50-5.90) L 04/18/18 04:10 Hgb 11.8 gm/dL (13.0-17.0) L 04/18/18 04:10 Hct 33.8 % (39.0-51.0) L 04/18/18 04:10 MCV 88.6 fL (80.0-100.0) 04/18/18 04:10 MCH 30.9 pg (27.0-34.0) 04/18/18 04:10 MCHC 34.8 % (32.0-36.0) 04/18/18 04:10 RDW 13.8 % (11.6-17.2) 04/18/18 04:10 Plt Count 373 th/mm3 (150-450) 04/18/18 04:10 MPV 8.3 fL (7.0-11.0) 04/18/18 04:10 Prelim Diff (Auto) Slide review pending 04/15/18 04:13 Neut % (Auto) 70.2 % (16.0-70.0) H 04/18/18 04:10 Lymph % (Auto) 17.8 % (9.0-44.0) 04/18/18 04:10 [place] % (Auto) 7.5 % (0.0-8.0) 04/18/18 04:10 Eos % (Auto) 3.6 % (0.0-4.0) 04/18/18 04:10 Baso % (Auto) 0.9 % (0.0-2.0) 04/18/18 04:10 Neut # (Auto) 10.4 th/mm3 (1.8-7.7) H 04/18/18 04:10 Lymph # (Auto) 2.6 th/mm3 (1.0-4.8) 04/18/18 04:10 [place] # (Auto) 1.1 th/mm3 (0.0-0.9) H 04/18/18 04:10 Eos # (Auto) 0.5 th/mm3 (0.0-0.4) H 04/18/18 04:10 Baso # (Auto) 0.1 th/mm3 (0.0-0.2) 04/18/18 04:10 WBC Differential . 04/18/18 04:10 Diff Scan Auto diff confirmed 04/07/18 06:17 Seg Neuts % (Manual) 76 % (16-70) H 04/15/18 04:13 Band Neuts % (Manual) 5 % (0-6) 04/08/18 06:45 Lymphocytes % (Manual) 7 % (9-44) L 04/15/18 04:13 Monocytes % (Manual) 16 % (0-8) H 04/15/18 04:13 Eosinophils % (Manual) 1 % (0-4) 04/15/18 04:13 Basophils % (Manual) 1 % (0-2) 04/08/18 06:45 Myelocytes % (Man) 1 % (0-0) H 04/08/18 06:45 Abs Neuts (Manual) 18.5 th/mm3 (1.8-7.7) H 04/15/18 04:13 Differential Comment Auto diff final 04/18/18 04:10 Platelet Estimate Normal (Normal) 04/15/18 04:13 Platelet Morphology Normal (Normal) 04/15/18 04:13 RBC Morphology Normal (Normal) 04/15/18 04:13 Ovalocytes 1+ (None) H 04/08/18 06:45 PT 10.8 sec (9.8-11.6) 04/06/18 20:10 INR 1.1 Ratio 04/06/18 20:10 APTT 55.6 sec (23.4-31.7) H 04/13/18 07:27 Sodium 139 meq/L (136-145) 04/18/18 04:10 Potassium 3.9 meq/L (3.5-5.1) 04/18/18 04:10 Chloride 103 meq/L (98-107) 04/18/18 04:10 Carbon Dioxide 28.8 meq/L (21.0-32.0) 04/18/18 04:10 Anion Gap 7 meq/L (5-15) 04/18/18 04:10 BUN 24 mg/dL (7-18) H 04/18/18 04:10 Creatinine 1.26 mg/dL (0.60-1.30) 04/18/18 04:10 Estimated GFR 57 mL/min (>89) L 04/18/18 04:10 POC Glucose 112 mg/dl (68-110) H 04/18/18 08:19 Random Glucose 96 mg/dL (74-106) 04/18/18 04:10 Hemoglobin A1c 7.0 % (4.3-6.0) H 04/17/18 04:03 Lactic Acid 2.6 mmol/L (0.4-2.0) H 04/06/18 18:40 Calcium 8.1 mg/dL (8.5-10.1) L 04/18/18 04:10 Phosphorus 4.3 mg/dL (2.5-4.9) 04/18/18 04:10 Magnesium 2.3 mg/dL (1.5-2.5) 04/18/18 04:10 Total Bilirubin 0.6 mg/dL (0.2-1.0) 04/18/18 04:10 AST 28 U/L (15-37) 04/18/18 04:10 ALT 43 U/L (12-78) 04/18/18 04:10 Alkaline Phosphatase 65 U/L (45-117) 04/18/18 04:10 Total Creatine Kinase 146 U/L (39-308) 04/07/18 06:17 Troponin I 1.49 ng/mL (0.02-0.05) H* 04/07/18 06:17 C-Reactive Protein 13.00 mg/dL (0.00-0.30) H 04/06/18 18:40 B-Natriuretic Peptide 74 pg/mL (0-100) 04/06/18 18:40 Total Protein 7.1 g/dL (6.4-8.2) 04/18/18 04:10 Albumin 2.5 g/dL (3.4-5.0) L 04/18/18 04:10 Triglycerides 130 mg/dL (42-150) 04/09/18 05:49 Cholesterol 105 mg/dL (120-200) L 04/09/18 05:49 LDL Cholesterol, Calc 46 mg/dL (0-99) 04/09/18 05:49 HDL Cholesterol 33.3 mg/dL (40.0-60.0) L 04/09/18 05:49 Cholesterol/HDL Ratio 3.15 Ratio 04/09/18 05:49 TSH 3.090 uIU/mL (0.358-3.740) 04/17/18 04:03 Free T4 1.33 ng/dL (0.76-1.46) 04/17/18 04:03 Urine Color Yellow (Yellw/Straw) 04/15/18 18:07 Urine Clarity Clear (Clear) 04/15/18 18:07 Urine pH 7.0 (5.0-8.5) 04/15/18 18:07 Ur Specific [place] 1.013 (1.002-1.035) 04/15/18 18:07 Urine Protein Negative mg/dL (Neg-Trace) 04/15/18 18:07 Urine Glucose (UA) Negative mg/dL (Negative) 04/15/18 18:07 Urine Ketones Negative mg/dL (Negative) 04/15/18 18:07 Urine Occult Blood Negative (Negative) 04/15/18 18:07 Urine Nitrate Negative (Negative) 04/15/18 18:07 Urine Bilirubin Negative (Negative) 04/15/18 18:07 Urine Urobilinogen Less than 2 mg/dL (Less than 2) 04/15/18 18:07 Ur Leukocyte Esterase Negative (Negative) 04/15/18 18:07 Urine RBC 2 /hpf (0-3) 04/15/18 18:07 Urine WBC 2 /hpf (0-5) 04/15/18 18:07 Urine Mucus Few /lpf (Occasional) H 04/15/18 18:07 Micro UA Comment Culture not ind 04/15/18 18:07 Ur Microscopic Review Not Reportable 04/15/18 18:07 Urine Culture Comments Culture not ind 04/15/18 18:07 Nasal Screen MRSA (PCR) Not detected (Negative) 04/08/18 22:30 Stl C.difficile DNA Amp Negative (Negative) 04/17/18 17:07 St C. diff Tox Epid 027 Negative (Negative) 04/17/18 17:07 Vancomycin Trough 12.6 mcg/mL (5.0-10.0) H 04/11/18 03:25 Blood Type O Positive 04/12/18 04:20 Blood Type Recheck Required 04/08/18 15:41 Antibody Screen Negative 04/12/18 04:20 MTS Gel Crossmatch See Detail 04/12/18 04:20 Impressions Carotid Doppler Study 04/08/18 13:14 CONCLUSION: 1. Right Internal Carotid Artery: Minimal atherosclerotic plaquing. No hemodynamically significant stenosis identified. 2. Left Internal Carotid Artery: Minimal atherosclerotic plaquing. No hemodynamically significant stenosis identified. Lower Extremity Ultrasound 04/08/18 13:14 CONCLUSION: 1. Vein mapping as above. Chest X-Ray 04/16/18 06:00 CONCLUSION: No pneumothorax. Venous Doppler Study 04/17/18 00:00 CONCLUSION: Negative study. No venous thrombosis of the right lower extremity. Labs on day of discharge: Labs from last 24 hours 04/18/18 04/18/18 04/18/18 08:19 04:10 04:10 WBC 14.8 H RBC 3.81 L Hgb 11.8 L Hct 33.8 L MCV 88.6 MCH 30.9 MCHC 34.8 RDW 13.8 Plt Count 373 MPV 8.3 Neut % (Auto) 70.2 H Lymph % (Auto) 17.8 [place] % (Auto) 7.5 Eos % (Auto) 3.6 Baso % (Auto) 0.9 Neut # (Auto) 10.4 H Lymph # (Auto) 2.6 [place] # (Auto) 1.1 H Eos # (Auto) 0.5 H Baso # (Auto) 0.1 WBC Differential . Differential Comment Auto diff final Sodium 139 Potassium 3.9 Chloride 103 Carbon Dioxide 28.8 Anion Gap 7 BUN 24 H Creatinine 1.26 Estimated GFR 57 L POC Glucose 112 H Random Glucose 96 Hemoglobin A1c Calcium 8.1 L Phosphorus 4.3 Magnesium 2.3 Total Bilirubin 0.6 AST 28 ALT 43 Alkaline Phosphatase 65 Total Protein 7.1 Albumin 2.5 L Stl C.difficile DNA Amp St C. diff Tox Epid 027 04/17/18 04/17/18 04/17/18 20:42 17:07 17:02 WBC RBC Hgb Hct MCV MCH MCHC RDW Plt Count MPV Neut % (Auto) Lymph % (Auto) [place] % (Auto) Eos % (Auto) Baso % (Auto) Neut # (Auto) Lymph # (Auto) [place] # (Auto) Eos # (Auto) Baso # (Auto) WBC Differential Differential Comment Sodium Potassium Chloride Carbon Dioxide Anion Gap BUN Creatinine Estimated GFR POC Glucose 136 H 97 Random Glucose Hemoglobin A1c Calcium Phosphorus Magnesium Total Bilirubin AST ALT Alkaline Phosphatase Total Protein Albumin Stl C.difficile DNA Amp Negative St C. diff Tox Epid 027 Negative 04/17/18 04/17/18 11:12 04:03 WBC RBC Hgb Hct MCV MCH MCHC RDW Plt Count MPV Neut % (Auto) Lymph % (Auto) [place] % (Auto) Eos % (Auto) Baso % (Auto) Neut # (Auto) Lymph # (Auto) [place] # (Auto) Eos # (Auto) Baso # (Auto) WBC Differential Differential Comment Sodium Potassium Chloride Carbon Dioxide Anion Gap BUN Creatinine Estimated GFR POC Glucose 195 H Random Glucose Hemoglobin A1c 7.0 H Calcium Phosphorus Magnesium Total Bilirubin AST ALT Alkaline Phosphatase Total Protein Albumin Stl C.difficile DNA Amp St C. diff Tox Epid 027 Preliminary micro results at discharge 04/15/18 Unknown Aerobic Blood Culture - Preliminary Blood - Line No growth in 2 days Anaerobic Blood Culture - Preliminary No growth in 2 days 04/15/18 14:15 Aerobic Blood Culture - Preliminary Blood - Line No growth in 2 days Anaerobic Blood Culture - Preliminary No growth in 2 days - Impressions ITS Impressions Carotid Doppler Study 04/08/18 13:14 CONCLUSION: 1. Right Internal Carotid Artery: Minimal atherosclerotic plaquing. No hemodynamically significant stenosis identified. 2. Left Internal Carotid Artery: Minimal atherosclerotic plaquing. No hemodynamically significant stenosis identified. Lower Extremity Ultrasound 04/08/18 13:14 CONCLUSION: 1. Vein mapping as above. Chest X-Ray 04/16/18 06:00 CONCLUSION: No pneumothorax. Venous Doppler Study 04/17/18 00:00 CONCLUSION: Negative study. No venous thrombosis of the right lower extremity. Discharge Plan - Discharge Disposition Patient Disposition: /Home Health Service - Discharge Condition Condition: Good - Discharge Order Discharge Orders: Discharge Order (Routine); Ordered 04/18/18 Ordered By: Yonatan Jordan - Discharge Details Anticipated Discharge Date: 04/18/18 Discharge Comment: DC TO HOME TODAY - Physicians Team Primary Care Provider: NON STAFF,PROVIDER Attending Provider: Yonatan Jordan Other Providers: Rachel Lopez MD ; Larissa Bruno MD ; Catherine Hedrick MD
[2018-04-18 11:52] VITALS: BP 119/65; TEMP 98.4; O2SAT 95
[2018-04-18 15:11] VITALS: PULSE 79
== END 2018-04-18 13:00 | disposition home health service (06) ==
LOC: NEPE 15:25 → NEDA 20:17 → HCIS 04-07 01:30 → HCPC 04-10 18:28 → HCVI 04-13 16:23 → HCPC 04-14 18:49
PROVIDERS: ADMIT Hospitalist; ATTEND Hospitalist